=== PATIENT | female | born 1945 | race Caucasian/White ===

== ENCOUNTER 2017-02-20 10:40 | Emergency (ER) | payer MEDICARE, BC ==
[2017-02-20 11:19] VITALS: RESP 16; TEMP 98.5
--- NOTE | 2017-02-20 12:28 | ED ---
General Adult HPI - General Chief complaint: Extremity Problem,Nontraumatic Stated complaint: LEFT LEG SWELLING, FEVER Time Seen by Provider: 02/20/17 12:10 Source: patient, RN notes reviewed, old records reviewed Mode of arrival: wheelchair Limitations: no limitations - History of Present Illness Initial comments: This is a 71-year-old female the ER for left lower extremity swelling. Patient has left lower joint swelling or pain. Patient concern for blood clot. She has no history of blood clots. No trauma to that leg. Patient denies any other symptoms or complaints. - Related Data Home Medications Medication Instructions Recorded Confirmed Pramipexole Di-HCl [Mirapex] 0.75 mg PO HS 11/25/13 02/20/17 Previous Rx's Medication Instructions Recorded Cephalexin [Keflex] 500 mg PO Q6HR #40 cap 02/20/17 Allergies Allergy/AdvReac Type Severity Reaction Status Date / Time ciprofloxacin [From Cipro] Allergy muscle and Verified 02/20/17 13:12 bone weakness ciprofloxacin HCl Allergy muscle and Verified 02/20/17 13:12 [From Cipro] bone weakness levofloxacin [From Levaquin] Allergy Rash/Hives Verified 02/20/17 13:12 milk Allergy Diarrhea Verified 02/20/17 13:12 quinine Allergy Unknown Verified 02/20/17 13:12 Sulfa (Sulfonamide Allergy Unknown Verified 02/20/17 13:12 Antibiotics) sulfamethoxazole Allergy Unknown Verified 02/20/17 13:12 [From Bactrim] trimethoprim [From Bactrim] Allergy Unknown Verified 02/20/17 13:12 hormone Allergy Unknown Uncoded 02/20/17 11:19 Review of Systems ROS Statement: Those systems with pertinent positive or pertinent negative responses have been documented in the HPI. ROS Other: All systems not noted in ROS Statement are negative. Past Medical History Past Medical History: Pulmonary Embolus (PE), Skin Disorder Additional Past Medical History / Comment(s): impetigo, varicose veins, sores on cheek and chin AND NECK FOR APPROX 1 1/2 YRS, RESTLESS LEG SYNDROME KRISTY. History of Any Multi-Drug Resistant Organisms: None Reported Past Surgical History: Orthopedic Surgery Additional Past Surgical History / Comment(s): left carpel tunnnel Past Anesthesia/Blood Transfusion Reactions: No Reported Reaction Past Psychological History: No Psychological Hx Reported Smoking Status: Never smoker Past Alcohol Use History: None Reported Past Drug Use History: None Reported - Past Family History Father Family Medical History: Cancer Mother Family Medical History: Cancer General Exam - General Exam Comments Initial Comments: Left lower extremity edema, warmth and erythema, anterior Limitations: no limitations General appearance: alert, in no apparent distress Head exam: Present: atraumatic, normocephalic, normal inspection Eye exam: Present: normal appearance, PERRL, EOMI. Absent: scleral icterus, conjunctival injection, periorbital swelling ENT exam: Present: normal exam, mucous membranes moist Neck exam: Present: normal inspection. Absent: tenderness, meningismus, lymphadenopathy Respiratory exam: Present: normal lung sounds bilaterally. Absent: respiratory distress, wheezes, rales, rhonchi, stridor Cardiovascular Exam: Present: regular rate, normal rhythm, normal heart sounds. Absent: systolic murmur, diastolic murmur, rubs, gallop, clicks GI/Abdominal exam: Present: soft, normal bowel sounds. Absent: distended, tenderness, guarding, rebound, rigid Extremities exam: Present: normal inspection, full ROM, normal capillary refill. Absent: tenderness, pedal edema, joint swelling, calf tenderness Back exam: Present: normal inspection Neurological exam: Present: alert, oriented X3, CN II-XII intact Psychiatric exam: Present: normal affect, normal mood Skin exam: Present: warm, dry, intact, normal color. Absent: rash Course Vital Signs 02/20/17 02/20/17 02/20/17 11:16 13:20 15:19 Temperature 98.5 F 98.5 F Pulse Rate 66 79 72 Respiratory 16 16 16 Rate Blood Pressure 118/57 112/53 116/55 O2 Sat by Pulse 99 100 100 Oximetry Medical Decision Making - Medical Decision Making 71 female DEL with left leg swelling and erythema, patient states she has history of cellulitis, does not want any testing or anything down like that at this time, would like to try outpatient therapy. - Radiology Data Radiology results: report reviewed (Ultrasound left lower extremity negative), image reviewed Disposition Clinical Impression: Left leg cellulitis Disposition: HOME SELF-CARE Condition: Good Instructions: Cellulitis (ED) Prescriptions: Cephalexin [Keflex] 500 mg PO Q6HR #40 cap Referrals: Mera Villar MD [Primary Care Provider] - 1-2 days
--- NOTE | 2017-02-20 14:47 | US ---
EXAMINATION TYPE: US venous doppler duplex LE LT DATE OF EXAM: 02/20/2017 1:55 PM COMPARISON: NONE CLINICAL HISTORY: Pain. EC patient with lower leg swelling and redness; prior PE per patient SIDE PERFORMED: Left TECHNIQUE: The lower extremity deep venous system is examined utilizing real time linear array sonog gene with graded compression, doppler sonography and color-flow sonography. VESSELS IMAGED: Common Femoral Vein Deep Femoral Vein Greater Saphenous Vein * Femoral Vein Popliteal Vein Small Saphenous Vein * Proximal Calf Veins (* superficial vessels) Left Leg: Negative for DVT. Left popliteal fossa complex fluid collection is noted = 8.5 x 2.2 x 1.0 cm. IMPRESSION: Grayscale, color doppler, spectral doppler imaging performed of the deep veins of the lo wer extremities. There is normal flow, compressibility, vascular waveforms. Complex cyst is noted i n the popliteal fossa.
[2017-02-20] MEDS ORDERED: CEPHALEXIN 500 MG CAP PO STA (15:07)
[2017-02-20] MEDS ORDERED: CEPHALEXIN 500MG STARTER PACK 4 CAP BTL PO STA (15:07)
[2017-02-20 15:19] VITALS: BP 116/55; PULSE 72
--- NOTE | 2017-02-23 00:48 | CDI ---
Documentation Clarification OP Dear Oracio GALLAGHER, DO Please do addendum to ED report for HPI , Physical exam and MDM. Thank you, Estefany Tavarez Inspector [employer] If you have any question, Please contact coding compliance manager at [phone] [facility]
== END 2017-02-20 15:30 | disposition home or self-care (01) ==
LOC: EC 10:40
DX: L03.116 Cellulitis of left lower limb (principal); Z86.711 Personal history of pulmonary embolism; Z79.899 Other long term (current) drug therapy; Z88.1 Allergy status to other antibiotic agents; Z91.011 Allergy to milk products; Z88.2 Allergy status to sulfonamides; Z88.8 Allergy status to other drugs, medicaments and biological substances
CPT/HCPCS: 99283

== ENCOUNTER → 2017-04-27 | Outpatient (CLI) | payer MEDICARE, BC ==
--- NOTE | 2017-04-28 13:35 | MM ---
Reason for exam: screening (asymptomatic). Last mammogram was performed 7 years and 9 months ago. History: Patient is postmenopausal. Family history of breast cancer in mother at age 80. Physical Findings: A clinical breast exam by your physician is recommended on an annual basis and results should be correlated with mammographic findings. MG 3D Screening Mammo W/Cad Bilateral CC and MLO view(s) were taken. XCCL view(s) were taken of the left breast. Prior study comparison: August 09, 2009, bilateral diagnostic digital mammog. There are scattered fibroglandular densities. No suspicious abnormality. No significant changes when compared with prior studies. ASSESSMENT: Negative, BI-RAD 1 RECOMMENDATION: Routine screening mammogram of both breasts in 1 year.
== END | disposition home or self-care (01) ==
LOC: RADMAMWWP 09:50
PROVIDERS: ATTEND Family Medicine
DX: Z12.31 Encounter for screening mammogram for malignant neoplasm of breast (principal)
CPT/HCPCS: 77063; 77067

== ENCOUNTER → 2017-09-24 | Outpatient (CLI) | payer MEDICARE, BC ==
--- NOTE | 2017-09-24 15:10 | US ---
EXAMINATION TYPE: US thyroid st tissue head/neck DATE OF EXAM: 09/24/2017 COMPARISON: NONE CLINICAL HISTORY: R22.1 Swelling of neck/mass. Patient can feel lump within her throat on and off GLAND SIZE: Right Lobe: 3.4 x 1.2 x 1.6 cm Overall Parenchyma: heterogenous Left Lobe: 3.3 x 0.8 x 1.2 cm Overall Parenchyma: heterogeneous Isthmus Thickness: 0.2 cm NODULES RIGHT: # of nodules measured on right: 0 LEFT: # of nodules measured on left: 1 1. 0.3 X 0.4 x 0.3 cm hypoechoic mixed nodule at the mid pole with well-defined margins; . This no dule is taller than wide and shows no intranodular vascularity. Prior size: No previous ISTHMUS: # of nodules measured in the isthmus: 0 Bilateral neck scanned, no evidence of lymphadenopathy. IMPRESSION: Solitary 0.4 cm left thyroid nodule of low suspicion. Otherwise unremarkable thyroid ultrasound.
== END | disposition home or self-care (01) ==
LOC: RADUSWWP 11:54
PROVIDERS: ATTEND Family Medicine
DX: E04.1 Nontoxic single thyroid nodule (principal); E03.9 Hypothyroidism, unspecified
CPT/HCPCS: 76536

== ENCOUNTER 2018-01-24 18:12 | Emergency (ER) | payer MEDICARE, BC ==
[2018-01-24 18:48] VITALS: PULSE 72; TEMP 98.3
[2018-01-24] MEDS ORDERED: KETOROLAC 30 MG/ML 1 ML VIAL IM STA (20:11)
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
--- NOTE | 2018-01-24 21:46 | US ---
EXAMINATION TYPE: US venous doppler duplex LE RT DATE OF EXAM: 01/24/2018 9:23 PM COMPARISON: NONE CLINICAL HISTORY: Pain. Right leg pain and edema. SIDE PERFORMED: Right TECHNIQUE: The lower extremity deep venous system is examined utilizing real time linear array sonog gene with graded compression, doppler sonography and color-flow sonography. VESSELS IMAGED: External Iliac Vein (EIV) Common Femoral Vein Deep Femoral Vein Greater Saphenous Vein * Femoral Vein Popliteal Vein Small Saphenous Vein * Proximal Calf Veins (* superficial vessels) Right Leg: Negative for DVT No evidence of DVT right leg. IMPRESSION: Normal right leg duplex venous sonogram.
--- NOTE | 2018-01-24 22:41 | XR ---
EXAMINATION TYPE: XR knee complete RT DATE OF EXAM: 01/24/2018 COMPARISON: 12/28/2014 HISTORY: Knee pain TECHNIQUE: 3 views. FINDINGS: I see no fracture nor dislocation. Joint spaces are fairly normal. There is no sign of any joint effu shiela. Impression Negative right knee exam. No change.
[2018-01-24 23:12] LABS: Basophils % (A) 0 %; Eosinophils # (A) 0.1 k/uL (0-0.7); Eosinophils % (A) 1 %; HCT 35.3 % (34.0-46.0); HGB 11.5 gm/dL (11.4-16.0); Lymphocytes # (A) 2.1 k/uL (1.0-4.8); Lymphocytes % (A) 24 %; MCH 29.7 pg (25.0-35.0); MCHC 32.6 g/dL (31.0-37.0); MCV 91.2 fL (80.0-100.0); Mean Platelet Volume 8.7; Monocytes # (A) 0.8 k/uL (0-1.0); Monocytes % (A) 9 %; Neutrophils # (A) 5.6 k/uL (1.3-7.7); Neutrophils % (A) 64 %; Platelet Count 238 k/uL (150-450); RBC 3.87 m/uL (3.80-5.40); RDW 13.2 % (11.5-15.5); WBC 8.7 k/uL (3.8-10.6)
[2018-01-24 23:26] LABS: Albumin 3.6 g/dL (3.5-5.0); Calcium 9.3 mg/dL (8.4-10.2); Potassium 3.9 mmol/L (3.5-5.1); Total Protein 6.4 g/dL (6.3-8.2)
[2018-01-24 23:38] LABS: C Reactive Protein 163.1 mg/L (<10.0)
[2018-01-25] MEDS ORDERED: IBUPROFEN 600 MG STARTER PACK 4 TAB BTL PO STA (00:44)
[2018-01-25 01:55] VITALS: BP 121/87; RESP 20
== END 2018-01-25 01:51 | disposition home or self-care (01) ==
LOC: EC 18:12
DX: M25.461 Effusion, right knee (principal); G25.81 Restless legs syndrome; Z79.899 Other long term (current) drug therapy; Z86.711 Personal history of pulmonary embolism; Z88.1 Allergy status to other antibiotic agents; Z88.2 Allergy status to sulfonamides; Z91.011 Allergy to milk products; Z88.8 Allergy status to other drugs, medicaments and biological substances
CPT/HCPCS: 36415; 80053; 85025; 86140; 87040; 73562; 93971; 99284; 96372; J1885

== ENCOUNTER → 2019-03-07 | Outpatient (CLI) | payer MEDICARE, BC ==
[2019-03-07 08:50] LABS: Basophils % (A) 1 %; Eosinophils # (A) 0.3 k/uL (0-0.7); Eosinophils % (A) 4 %; HCT 40.7 % (34.0-46.0); HGB 13.1 gm/dL (11.4-16.0); Lymphocytes # (A) 2.1 k/uL (1.0-4.8); Lymphocytes % (A) 29 %; MCH 29.7 pg (25.0-35.0); MCHC 32.2 g/dL (31.0-37.0); MCV 92.1 fL (80.0-100.0); Mean Platelet Volume 8.7; Monocytes # (A) 0.4 k/uL (0-1.0); Monocytes % (A) 6 %; Neutrophils # (A) 4.3 k/uL (1.3-7.7); Neutrophils % (A) 59 %; Platelet Count 259 k/uL (150-450); RBC 4.42 m/uL (3.80-5.40); WBC 7.3 k/uL (3.8-10.6)
[2019-03-07 15:57] LABS: Albumin 4.4 g/dL (3.80-4.90); Albumin/Globulin Ratio 2.32 (1.60-3.17); Anion Gap 8.2 mmol/L (4.00-12.00); BUN/Creat Ratio 21.11 Ratio (12.00-20.00); Calcium 9.5 mg/dL (8.7-10.3); Carbon Dioxide 28.8 mmol/L (21.6-31.8); Globulin 1.9 g/dL (1.6-3.3); Non-African American GFR(CKD) 63.9 (60.0-200.0); Potassium 4.2 mmol/L (3.5-5.5); Total Bilirubin 0.4 mg/dL (0.2-1.2); Total Protein 6.3 g/dL (6.2-8.2)
== END | disposition home or self-care (01) ==
LOC: LABWHC1 08:26
PROVIDERS: ATTEND Psychiatry & Neurology Neurology
DX: Z00.00 Encounter for general adult medical examination without abnormal findings (principal); M62.81 Muscle weakness (generalized); Z79.899 Other long term (current) drug therapy
CPT/HCPCS: 36415; 80053; 82550; 85025

== ENCOUNTER → 2019-08-11 | Outpatient (CLI) | payer MEDICARE, BC ==
--- NOTE | 2019-08-11 14:02 | US ---
EXAMINATION TYPE: US thyroid st tissue head/neck DATE OF EXAM: 08/11/2019 COMPARISON: 09/24/2017 CLINICAL HISTORY: E04.1 Single thyroid nodule. Thyroid nodule GLAND SIZE: Right Lobe: 4.8 x 1.4 x 1.5 cm Overall Parenchyma: heterogenous Left Lobe: 4.3 x 1.1 x 1.0 cm Overall Parenchyma: heterogeneous Isthmus Thickness: 0.4 cm NODULES RIGHT: # of nodules measured on right: 0 LEFT: # of nodules measured on left: 1 1. 0.4 X 0.3 x 0.4 cm mixed nodule at the mid pole with well-defined margins. This nodule is wider than tall and shows no intranodular vascularity. Prior size: 0.3 x 0.4 x 0.3 cm ISTHMUS: # of nodules measured in the isthmus: 0 Bilateral neck scanned, no evidence of lymphadenopathy. IMPRESSION: Heterogeneous thyroid tissue correlate for thyroiditis. Stable 4 mm left thyroid nodule.
== END | disposition home or self-care (01) ==
LOC: RADUSWWP 13:37
PROVIDERS: ATTEND Family Medicine
DX: E04.1 Nontoxic single thyroid nodule (principal)
CPT/HCPCS: 76536

== ENCOUNTER → 2019-09-22 | Outpatient (CLI) | payer MEDICARE, BC ==
--- NOTE | 2019-09-22 17:17 | BD ---
EXAMINATION TYPE: Axial Bone Density DATE OF EXAM: 09/22/2019 COMPARISON: NONE CLINICAL HISTORY: 73-year-old female postmenopausal screening Height: 63 Weight: 147.7 FRAX RISK QUESTIONS: Alcohol (3 or more units per day): no Family History (Parent hip fracture): no Glucocorticoids (More than 3mos): no (Ex: prednisone, prednisolone, methylprednisolone, dexamethasone, and hydrocortisone). History of Fracture in Adulthood: yes Secondary Osteoporosis: 1. Type 1 Diabetes: no 2. Hyperthyroidism: no 3. Menopause before 45: no 4. Malnutrition: no 5. Chronic liver disease: no Rheumatoid Arthritis: no Current Tobacco Use: no RISK FACTORS HISTORY OF: Family History of Osteoporosis: no Active: yes Diet low in dairy products/other sources of calcium: no Postmenopausal woman: age 46 Take estrogen and/or progesterone medications: yes How lon months Lost more than 2 inches in height since high school: yes MEDICATIONS: Mirapex, estrogen Additional History: EXAM MEASUREMENTS: Bone mineral densitometry was performed using the ehealthtracker System. Bone mineral density as measured about the Lumbar spine is: ----- L1-L4(G/cm2): 0.950 T Score Values are as follows: ----- L2: -3.3 ----- L3: -1.2 ----- L4: -1.1 ----- L1-L4: Bone mineral density : baseline Bone mineral density about the R hip (g/cm2): 0.711 Bone mineral density about the L hip (g/cm2): 0.664 T Score values are as follows: -----R Neck: -2.4 -----L Neck: -2.7 -----R Total: -2.3 -----L Total: -2.0 Bone mineral density : baseline IMPRESSION: Osteoporosis (T Score less than -2.5). There is increased fracture risk and therapy is usually indicated based on age. Re-Screen 1-2 years. NOTE: T-SCORE=SD OF THE YOUNG ADULT MEAN.
--- NOTE | 2019-09-28 10:11 | MM ---
Reason for exam: screening (asymptomatic). Last mammogram was performed 2 years and 5 months ago. History: Patient is postmenopausal. Family history of breast cancer in mother at age 80. Taking estrogen. Physical Findings: A clinical breast exam by your physician is recommended on an annual basis and results should be correlated with mammographic findings. MG 3D Screening Mammo W/Cad Bilateral CC and MLO view(s) were taken. Prior study comparison: April 27, 2017, bilateral MG 3d screening mammo w/cad. August 09, 2009, bilateral diagnostic digital mammog. The breast tissue is heterogeneously dense. This may lower the sensitivity of mammography. There is no discrete abnormality. No significant changes when compared with prior studies. ASSESSMENT: Negative, BI-RAD 1 RECOMMENDATION: Routine screening mammogram of both breasts in 1 year.
== END | disposition home or self-care (01) ==
LOC: RADMAMWWP 15:29
PROVIDERS: ATTEND Family Medicine
DX: Z12.31 Encounter for screening mammogram for malignant neoplasm of breast (principal); M81.0 Age-related osteoporosis without current pathological fracture; Z78.0 Asymptomatic menopausal state
CPT/HCPCS: 77063; 77067; 77080

== ENCOUNTER → 2019-09-26 | Outpatient (CLI) | payer MEDICARE, BC ==
[2019-09-26 14:25] LABS: Basophils # (A) 0.1 k/uL (0-0.2); Basophils % (A) 1 %; Eosinophils # (A) 0.2 k/uL (0-0.7); Eosinophils % (A) 4 %; HCT 37.7 % (34.0-46.0); Lymphocytes % (A) 35 %; MCH 29.1 pg (25.0-35.0); MCHC 31.9 g/dL (31.0-37.0); MCV 91.4 fL (80.0-100.0); Mean Platelet Volume 9.1; Monocytes # (A) 0.3 k/uL (0-1.0); Monocytes % (A) 6 %; Neutrophils # (A) 2.9 k/uL (1.3-7.7); Neutrophils % (A) 51 %; Platelet Count 204 k/uL (150-450); RBC 4.12 m/uL (3.80-5.40); RDW 13.2 % (11.5-15.5); WBC 5.6 k/uL (3.8-10.6)
[2019-09-26 14:39] LABS: African American GFR (CKD) >90 (>60 ml/min/1.73 sqM); Anion Gap 7 mmol/L; Blood Urea Nitrogen 12 mg/dL (7-17); Carbon Dioxide 26 mmol/L (22-30); Chloride 102 mmol/L (98-107); Non-African American GFR(CKD) 87 (>60 ml/min/1.73 sqM); Potassium 4.1 mmol/L (3.5-5.1); Sodium 135 mmol/L (137-145)
== END | disposition home or self-care (01) ==
LOC: LABPAT 12:49
PROVIDERS: ATTEND Obstetrics & Gynecology
DX: Z01.818 Encounter for other preprocedural examination (principal); N81.4 Uterovaginal prolapse, unspecified
CPT/HCPCS: 36415; 80051; 82565; 84520; 85025; 86850; 86900; 86901; 87086; 93005

== ENCOUNTER 2019-10-03 05:43 | Day surgery (SDC) | payer MEDICARE, BC ==
[2019-09-29 13:09] VITALS: BMI 25.4
[~2019-10-03 05:43] MED LIST: DEXAMETHASONE SOD PHOSPHATE 10 MG/ML 1 ML VIAL IV ONE; HYDROmorphone 0.5 MG/0.5 ML SYRINGE IVP PRN; MIDAZOLAM 2 MG/2 ML VIAL IV PRN; ONDANSETRON 4 MG/2 ML VIAL IVP ONE
[2019-10-03] MEDS: LACTATED RINGERS 1,000 ML IV SCH ×2 (06:23→18:52)
[2019-10-03] MEDS ORDERED: LIDOCAINE 1% (10MG/ML) FOR IV START INTRADERMA ONE (06:23)
[2019-10-03] MEDS ORDERED: ONDANSETRON 4 MG/2 ML VIAL ONE (06:25)
[2019-10-03] MEDS ORDERED: MIDAZOLAM 2 MG/2 ML VIAL IV ONE (07:13)
[2019-10-03] MEDS ORDERED: fentaNYL (PF) 50 MCG/ML 2 ML AMP IV ONE (07:13)
[2019-10-03] MEDS ORDERED: SUCCINYLCHOLINE CHLORIDE 100 MG/5 ML SYR IV ONE (07:23)
[2019-10-03] MEDS ORDERED: PROPOFOL 10 MG/ML 20 ML VIAL IV ONE (07:23)
[2019-10-03] MEDS ORDERED: ePHEDrine SULFATE/0.9% NACL/PF 50 MG/5 ML SYRINGE IV ONE (07:23)
[2019-10-03] MEDS ORDERED: LIDOCAINE 1% INJ 10MG/ML (20 ML MDV) ONE (07:23)
[2019-10-03] MEDS ORDERED: GLYCOPYRROLATE 0.2 MG/ML 2 ML VIAL ONE (07:23)
[2019-10-03] MEDS ORDERED: fentaNYL (PF) 50 MCG/ML 2 ML AMP ONE (07:23)
[2019-10-03] MEDS ORDERED: NALOXONE 0.4 MG/ML 1 ML VIAL IV PRN (07:45)
[2019-10-03] MEDS ORDERED: HYDROmorphone 0.5 MG/0.5 ML SYRINGE IVP PRN (07:45)
[2019-10-03] MEDS ORDERED: KETOROLAC 30 MG/ML 1 ML VIAL IVP PRN ×2 (07:45→08:59)
[2019-10-03] MEDS ORDERED: diphenhydrAMINE 50 MG/ML 1 ML VIAL IVP PRN (07:45)
[2019-10-03] MEDS ORDERED: BACITRACIN ZINC 500 UNIT/GM OINT 28.4 GM TUBE TOPICAL ONE (07:54)
[2019-10-03] MEDS ORDERED: VASOPRESSIN 20 UNIT/ML 1 ML VIAL SQ ONE ×2 (07:55)
[2019-10-03] MEDS ORDERED: LACTATED RINGERS 1,000 ML IV ONE (08:42)
[2019-10-03] MEDS ORDERED: ZOLPIDEM 5 MG TAB PO PRN (08:59)
[2019-10-03] MEDS ORDERED: IBUPROFEN 600 MG TAB PO PRN (08:59)
[2019-10-03] MEDS ORDERED: SIMETHICONE 80 MG CHEWABLE PO PRN (08:59)
[2019-10-03] MEDS ORDERED: METOCLOPRAMIDE 5 MG/ML 2 ML VIAL IVP PRN (08:59)
--- NOTE | 2019-10-03 08:59 | P.OP ---
Date of Procedure: 10/03/19 Preoperative Diagnosis: Symptomatic uterine prolapse, cystocele and rectocele. Postoperative Diagnosis: Same, normal-appearing ovaries bilaterally Procedure(s) Performed: Vaginal hysterectomy, anterior and posterior colporrhaphy's Anesthesia: GETA Surgeon: Cindy Andersen Estimated Blood Loss (ml): 50 IV fluids (ml): 700 Urine output (ml): 400 Pathology: other (Cervix and uterus) Condition: stable Disposition: PACU Operative Findings: Normal-appearing ovaries bilaterally Description of Procedure: Patient is brought to the operating suite where a general anesthetic is administered without difficulty. She's placed in the dorsal lithotomy position. Antibiotics are given. The appropriate timeout is performed to assure proper patient and procedural identification. Bladder is drained for approximately 400 mL of clear yellow urine. The cervix, vagina, perineal body, and lower abdominal wall are all prepped and draped in usual sterile fashion. Weighted speculum was placed into the vagina. Anterior lip of the cervix is grasped with a double-tooth tenaculum. The cervix is injected circumferentially with a dilute Pitressin solution. A mi'kmaq blade scalpel is used to incise the mucosa circumferentially with a V positioning at 6:00. Sponge rolled finger is then used to sweep the mucosa from the underlying fascial plane. The peritoneum is entered at 6:00, suture tied with 2-0 Vicryl, and the large billed speculum was placed into the peritoneal cavity. At all times the mucosa is swept well from the operative field to avoid bladder injury. The right uterosacral cardinal ligament is identified, clamped cut and held with a 0 Vicryl suture laterally. The same is carried out contralaterally. Uterine vasculature is identified, clamped cut and suture ligated. 2 additional pedicles are taken superior to the vessels. The anterior peritoneum is entered at 12:00. Robin clamps are used across the final pedicles and the cervix and uterus are removed and sent to pathology. 0 Vicryl suture is used to tie these pedicles, flashed, and retied for excellent hemostasis. Ovaries are visualized with a sponge stick, normal and high in the pelvis and therefore left in situ. The speculum is changed to the shallow weighted speculum. The 2-0 Vicryl suture is brought around in a pursestring fashion to close the peritoneum. The uterosacral cardinal ligaments are brought across now to i ncorporate the opposite ligament as well as vaginal mucosa and the vagina is closed. An additional faoaki-im-holyj sutures used posterior to this, and one superior as well. Allis clamps are used on the superior most portion of the vaginal cough and the anterior repair is started. The mucosa is injected with the same dilute Pitressin solution in the midline. Metzenbaum scissors are used to undermine and then open the mucosa to approximately 1.5 cm inferior to the urethra. Allis clamps are used to hold the mucosa bilaterally and a fanlike fashion. A sponge rolled finger is used to sweep the underlying fascial plane away from the overlying mucosal edges. 2-0 Vicryl sutures used in an interrupted fashion to bring the fascial edges together. Rodriguez catheter is placed in the urine is clear. Excellent support is noted. Metzenbaum scissors are used to trim the redundant mucosa and a 2-0 Vicryl suture is used in a running locking fashion to close the vaginal mucosa. A triangular portion of tissue is now removed with a scalpel on the perineal body. The posterior vaginal wall is also now injected in the midline with the same dilute Pitressin solution, 30 mL total have been used. Metzenbaum scissors are used to undermine the mucosa in the midline and the mucosa is opened. It is held again in a fanlike fashion with Allis clamps bilaterally. Sponge rolled finger is used to sweep the fascia from the underlying mucosa. 2-0 Vicryl suture again is used in an interrupted fashion to bring the fascial edges together thereby completely reducing the rectocele. The mucosa is trimmed with Metzenbaum scissors. 2-0 Vicryl is used in a running locking stitch to close the posterior vaginal wall, and the repair is completed in an episiotomy-like fashion. Vagina is clean and dry. It is packed with one-inch iodophor gauze with basic tracing for support. Once again Rodriguez is noted to be draining clear urine. All sponge needle and enhancement counts are correct. Patient is broug ht back to the recovery room in very good condition with stable vital signs including blood pressure 118/56, pulse 56, 99% O2 saturation.
[2019-10-03] MEDS ORDERED: PRAMIPEXOLE 1 MG TAB PO STA (09:06)
[2019-10-03] MEDS: ONDANSETRON 4 MG/2 ML VIAL IVP PRN ×2 (12:10→20:41)
[2019-10-03] MEDS: diphenhydrAMINE 50 MG/ML 1 ML VIAL IVP PRN (14:33)
[2019-10-03] MEDS ORDERED: SODIUM CHLORIDE 0.9% 500 ML 300 ML IV ONE (18:41)
[2019-10-03] MEDS ORDERED: PRAMIPEXOLE 1 MG TAB PO ONE (21:00)
[2019-10-03] MEDS ORDERED: SODIUM CHLORIDE 0.9% 500 ML 500 ML IV ONE (22:02)
[2019-10-03 23:25] VITALS: TEMP 97.6
[2019-10-04 05:50] VITALS: BP 96/56; PULSE 61; RESP 18
[2019-10-04] MEDS: diphenhydrAMINE 50 MG/ML 1 ML VIAL IVP PRN (06:44)
--- NOTE | 2019-10-04 07:47 | P.DS ---
Providers Date of admission: 10/03/19 Expected date of discharge: 10/04/19 Attending physician: Cindy Andersen Primary care physician: [facility] [place] Course: This 73 year old female presented with an increasingly symptomatic uterine p rolapse, rectocele and cystocele, requesting surgical repair. See admitting H and P for details. She underwent vaginal hysterectomy and cystocele, rectocele repair under my care yesterday, ovaries were normal to inspection and left in situ. Please see dictated surgical note for details. This morning the vaginal packing and hebert catheter have been removed. Vital signs are stable, she is ambulating and has no complaints of pain. She is tolerating regular diet and resting comfortably. She will have uroscan after first void, and if less than 100cc will be discharged home. She will follow up with me in the office in 2 weeks. SHe will call with any fever, vaginal bleeding, issues with defecation or urination or any unusual complaints or pain no alleviated by motrin OTC. No intercourse, no heavy lifting, no heavy housework. Assessment: Doing well post op day 1 Patient Condition at Discharge: Good Plan - Discharge Summary New Discharge Prescriptions: No Action Pramipexole Di-HCl [Mirapex] 0.75 mg PO HS Cyanocobalamin [Vitamin B-12] 500 mcg PO Q72H Ibuprofen [Motrin] 600 mg PO Q8HR PRN #30 tab PRN Reason: Pain Biotin/Silicon Diox/l-Cysteine [Sylvain Matrix 5000 ER Tablet] 1 each PO DAILY Discharge Medication List Pramipexole Di-HCl [Mirapex] 0.75 mg PO HS 11/25/13 [History] Cyanocobalamin [Vitamin B-12] 500 mcg PO Q72H 01/24/18 [History] Ibuprofen [Motrin] 600 mg PO Q8HR PRN #30 tab 01/25/18 [Rx] Biotin/Silicon Diox/l-Cysteine [[place] Matrix 5000 ER Tablet] 1 each PO DAILY 09/29/19 [History] Follow up Appointment(s)/Referral(s): Cindy Andersen MD [STAFF PHYSICIAN] - 2 Weeks
--- NOTE | 2019-10-04 08:03 | P.PN ---
Progress Note - Text Date: 10/04/2019 Time: 06:51 The patient is status post, vaginal hysterectomy. Vital signs stable VAS: 0-10 Patient has no complaints of pain. The patient incurred some minimal itching yesterday, this itching is now subsiding. Pain meds to be managed by service.
[2019-10-04] MEDS ORDERED: diphenhydrAMINE 25 MG CAP PO PRN (09:47)
== END 2019-10-04 11:25 ==
LOC: OR 05:43 → 6PED 08:49 → OR 10-04 11:25
PROVIDERS: ATTEND Obstetrics & Gynecology
DX: N81.4 Uterovaginal prolapse, unspecified (principal); J45.909 Unspecified asthma, uncomplicated; E03.9 Hypothyroidism, unspecified; G25.81 Restless legs syndrome; M19.90 Unspecified osteoarthritis, unspecified site; Z98.890 Other specified postprocedural states; Z79.899 Other long term (current) drug therapy; Z88.1 Allergy status to other antibiotic agents; Z88.2 Allergy status to sulfonamides; Z80.3 Family history of malignant neoplasm of breast; Z80.9 Family history of malignant neoplasm, unspecified; Z88.8 Allergy status to other drugs, medicaments and biological substances; Z86.718 Personal history of other venous thrombosis and embolism; Z86.711 Personal history of pulmonary embolism; Z91.011 Allergy to milk products
CPT/HCPCS: 88305; 58260; 57260; J2250; J1200 ×2; J1100; J2765; J0690; J2405; J3010; J1885; 86850; 86900; 86901

== ENCOUNTER → 2022-01-28 | Outpatient (CLI) | payer MEDICARE, BC ==
--- NOTE | 2022-01-28 15:40 | BD ---
EXAMINATION TYPE: Axial Bone Density DATE OF EXAM: 01/28/2022 COMPARISON: 09/22/2019 CLINICAL HISTORY: 76 years year old Female. ICD-10 CODE: Z78.0 Asymptomatic menopause Height: 62" Weight: 146.6 FRAX RISK QUESTIONS: Alcohol (3 or more units per day): Family History (Parent hip fracture): NO Glucocorticoids (More than 3mos): YES, HYDROXYCHLOROQUINE, LAST 5 MONTHS (Ex: prednisone, prednisolone, methylprednisolone, dexamethasone, and hydrocortisone). History of Fracture in Adulthood: YES, RIGHT ANKLE Secondary Osteoporosis: 1. Type 1 Diabetes: NO 2. Hyperthyroidism: NO 3. Menopause before 45: NO 4. Malnutrition: NO 5. Chronic liver disease: NO Rheumatoid Arthritis: NO Current Tobacco Use: NO RISK FACTORS HISTORY OF: Hip Fracture (Right/Left): NO Spine Fracture: NO History of Wrist Fracture: NO Surgery to Spine/Hip(right/left)/Wrist (right/left): YES, LEFT CARPAL TUNNEL SX Family History of Osteoporosis: YES, MOTHER Active: YES Diet low in dairy products/other sources of calcium: YES Postmenopausal woman: YES Lost more than 2 inches in height since high school: YES Frequent falls: YES Poor Health: GOOD Hyperparathyroidism: NO Adrenal Insufficiency: NO MEDICATIONS: Prednisone or other steroids: HYDR CHLORO PAPA How Long: PAST 5 MONTHS Additional Medications: CALCIUM WITH VITAMIN D, MIRAPEX FOR RESTLESS LEGS EXAM MEASUREMENTS: Bone mineral densitometry was performed using the [employer] Blackbox System. Bone mineral density as measured about the Lumbar spine is: ----- L1-L4(G/cm2): 0.928 T Score Values are as follows: ----- L1: -3.3 ----- L2: -3.4 ----- L3: -1.5 ----- L4: -0.7 ----- L1-L4: -2.1 Bone mineral density has: Decreased -2.3% since study of: 09/22/2019 Bone mineral density about the R hip (g/cm2): 0.703 Bone mineral density about the L hip (g/cm2): 0.704 T Score values are as follows: -----R Neck: -2.4 -----L Neck: -2.5 -----R Total: -2.4 -----L Total: -2.4 Bone mineral density has: Decreased -4.4% since study of: 09/22/2019 FRAX%s: The graph provided illustrates a 14.7% chance for a major osteoporotic fx and a 5.5% chance f or the hips probability for fx in 10 years time. IMPRESSION: Osteopenia (T Score between -2.5 and -1). There is slightly increased risk of fracture and the patient may be considered for treatment. Re-Screen 2-5 years. NOTE: T-SCORE=SD OF THE YOUNG ADULT MEAN.
--- NOTE | 2022-01-29 18:37 | MM ---
Reason for Exam: Screening (asymptomatic). Last mammogram was performed 2 year(s) and 4 month(s) ago. Patient History: Menarche at age 14. First Full-Term at age 28. Hysterectomy at age 74. Postmenopausal. Patient has history of breast feeding. Estrogen for 2 months. Mother had breast cancer, age 80. Risk Values: Jeimy 5 year model risk: 3.5%. NCI Lifetime model risk: 7.4%. Prior Study Comparison: 08/09/2009 Bilateral Diagnostic Mammogram, [facility]. 04/27/2017 Bilateral Screening Mammogram, [facility]. 09/22/2019 Bilateral Screening Mammogram, [facility]. Tissue Density: There are scattered fibroglandular densities. Findings: Analyzed By CAD. There is no suspicious group of microcalcifications or new suspicious mass in either breast. Overall Assessment: Negative, BI-RAD 1 Management: Screening Mammogram of both breasts in 1 year. 1. Patient should continue monthly self breast exams. 2. A clinical breast exam by your physician is recommended on an annual basis. 3. This exam should not preclude additional follow-up of suspicious palpable abnormalities. Electronically signed and approved by: Tremayne Weiss M.D. Radiologist
== END | disposition home or self-care (01) ==
LOC: RADMAMWWP 13:58
PROVIDERS: ATTEND Family Medicine
DX: Z12.31 Encounter for screening mammogram for malignant neoplasm of breast (principal); M81.0 Age-related osteoporosis without current pathological fracture; Z78.0 Asymptomatic menopausal state; Z80.3 Family history of malignant neoplasm of breast
CPT/HCPCS: 77063; 77067; 77080

== ENCOUNTER 2022-07-28 09:48 | Day surgery (SDC) | payer MEDICARE ==
[2022-07-24 10:57] VITALS: BMI 25.3
[~2022-07-28 09:48] MED LIST changes: -DEXAMETHASONE SOD PHOSPHATE 10 MG/ML 1 ML VIAL IV ONE; -HYDROmorphone 0.5 MG/0.5 ML SYRINGE IVP PRN; +LACTATED RINGERS 1,000 ML IV SCH; +LIDOCAINE 1% (10MG/ML) FOR IV START INTRADERMA PRN; -MIDAZOLAM 2 MG/2 ML VIAL IV PRN; -ONDANSETRON 4 MG/2 ML VIAL IVP ONE
[2022-07-28 10:13] VITALS: TEMP 97.4
[2022-07-28] MEDS ORDERED: PROPOFOL 10 MG/ML 20 ML VIAL IV ONE (10:36)
[2022-07-28] MEDS ORDERED: LIDOCAINE 2% INJ 20 MG/ML (2 ML VIAL) ONE (10:36)
--- NOTE | 2022-07-28 11:00 | P.PCN ---
Date of Procedure: 07/28/22 Procedure(s) Performed: BRIEF HISTORY: Patient is a 76-year-old, pleasant, white female scheduled for an upper endoscopy as a part of evaluation of intermittent episodes of epigastric pain followed by nausea vomiting of almost 5-6 months duration. She has these episodes once or twice a month has been for a a few hours and then resolves.. PROCEDURE PERFORMED: Esophagogastroduodenoscopy with biopsy. PREOPERATIVE DIAGNOSIS: Intermittent episodes of epigastric pain associated with nausea vomiting of 8 months duration. IV sedation per anesthesia. PROCEDURE: After informed consent was obtained, the patient was brought into the endoscopy unit. IV sedation was administered by Anesthesia under continuous monitoring. Initially the Olympus GIF-140 video endoscope was inserted into the mouth. Esophagus intubated without any difficulty. It was gradually advanced into the stomach and duodenum and carefully examined. The bulb and the second part of the duodenum appeared normal. The scope at this time was withdrawn to the stomach, adequately insufflated with air, and upon careful examination, mucosa of the antrum, had mild gastritis and biopsies were done from this area. Mucosa of the body, cardia and the fundus appeared normal which was located in the large hiatal hernia.. The scope was then withdrawn into the esophagus. The GE junction was located at 30 cm from the incisors. The esophagus appeared normal. There were no erosions or ulcerations seen and the patient tolerated the procedure well. IMPRESSION: 1. Large paraesophageal hiatal hernia. 2. Mild antral gastritis. RECOMMENDATIONS: The findings of this examination were discussed with the patient as well as a family. She was advised to continue with small frequent meals and Pepcid 20 mg twice daily and follow antireflux measures. If she still remains symptomatic she will be referred for surgical evaluation .
[2022-07-28 11:23] VITALS: BP 119/70; PULSE 70; RESP 20
== END 2022-07-28 11:39 | disposition home or self-care (01) ==
LOC: ORWHC2ENDO 09:48
PROVIDERS: ATTEND Internal Medicine Gastroenterology
DX: K29.50 Unspecified chronic gastritis without bleeding (principal); K44.9 Diaphragmatic hernia without obstruction or gangrene; K21.9 Gastro-esophageal reflux disease without esophagitis; Z88.1 Allergy status to other antibiotic agents; Z88.2 Allergy status to sulfonamides; Z88.0 Allergy status to penicillin; Z79.899 Other long term (current) drug therapy
CPT/HCPCS: 88305; 43239; J2704; J2001

== ENCOUNTER → 2022-10-19 | Outpatient (CLI) | payer MEDICARE ==
[2022-10-19 13:53] LABS: African American GFR (CKD) 81 (>60 ml/min/1.73 sqM); Blood Urea Nitrogen 21 mg/dL (7-17); Non-African American GFR(CKD) 70 (>60 ml/min/1.73 sqM)
--- NOTE | 2022-10-19 16:00 | CT ---
EXAMINATION TYPE: CT ChestAbdPelvis w con DATE OF EXAM: 10/19/2022 COMPARISON: None HISTORY: 76-year-old female K44.9, DIAPHRAGMATIC HERNIA WITHOUT OBSTRUCTION TECHNIQUE: Contiguous axial scanning of the chest, abdomen, and pelvis performed with IV Contrast, pa tient injected with 100ml mL of Isovue 300. Delayed images through the kidneys were obtained. Coronal /sagittal reconstructions performed. CT DLP: 1333 mGycm Automated exposure control for dose reduction was used. FINDINGS: Chest: Heart normal size without pericardial effusion. Aorta normal caliber with conventional arch vessel branching anatomy. No thoracic lymphadenopathy by CT size criteria. Minimal emphysematous change. Normal biapical pleural-parenchymal scarring. No consolidation or pleur al effusion. ABDOMEN: There is a large hiatal hernia involving the entire stomach within the lower chest. Liver enlarged measuring 21.6 cm probably due to the presence of a Ervin's lobe. Portal venous syste m is patent. No biliary ductal dilatation. Adrenal glands, right kidney, spleen, and atrophic pancreas show no gross abnormality. Parapelvic cyst left kidney measuring up to 2.0 cm. There is symmetric uptake and excretion of contra st from both kidneys. No dilated small bowel, free fluid, or free air. No mesenteric or retroperitoneal lymphadenopathy. No significant stool burden. Oral contrast progressed to the rectum. No pericolic inflammatory change . Pelvis: Bladder urine distended. There is pelvic floor relaxation. Uterus surgically absent. Both ovaries are visualized. Slight asymmetric fullness of the left ovary but with normal size of 5.3 mL. No abnormal fluid collection in the pelvis or pelvic lymphadenopathy. There is a small indirect left inguinal hernia containing a few loops of nonobstructed small bowel. T here is also a small right-sided direct inguinal hernia. Bones: Moderate to advanced degenerative disc disease lower thoracic spine and mid and lower lumbar spine. F acet arthropathy. IMPRESSION: 1. LARGE HIATAL HERNIA INVOLVING THE ENTIRE STOMACH WITHIN THE LOWER CHEST. 2. Moderate-sized indirect left inguinal hernia containing a loops of nonobstructed small bowel . Small right-sided indirect inguinal hernia. 3. Minimal emphysematous change. Pelvic floor relaxation.
== END | disposition home or self-care (01) ==
LOC: RADCTMAIN 11:59
PROVIDERS: ATTEND Internal Medicine Gastroenterology
DX: K44.9 Diaphragmatic hernia without obstruction or gangrene (principal); K40.90 Unilateral inguinal hernia, without obstruction or gangrene, not specified as recurrent; J43.9 Emphysema, unspecified
CPT/HCPCS: 82565; 84520; 71260; 74177; 36415; Q9967

== ENCOUNTER → 2022-11-17 | Outpatient (CLI) | payer MEDICARE ==
[2022-11-17 10:08] LABS: INR 0.9 (<1.2); Partial Thromboplastin Time 25.6 sec (22.0-30.0); Prothrombin Time 9.8 sec (9.0-12.0)
[2022-11-17 15:23] LABS: Appearance,Urine Clear (Clear); Bilirubin,Urine Negative (Negative); Blood,Urine Negative (Negative); Color,Urine Yellow (Yellow); Ketones,Urine Negative (Negative); Nitrite,Urine Negative (Negative); Specific Gravity,Urine 1.013 (1.001-1.030); Urobilinogen,Urine 0.2 E.U./DL
[2022-11-17 15:52] LABS: Basophils # (A) 0.04 X 10*3/uL (0.00-0.10); Basophils % (A) 0.6 %; Eosinophils # (A) 0.23 X 10*3/uL (0.04-0.35); Eosinophils % (A) 3.2 %; HCT 40.2 % (37.2-46.3); HGB 12.9 d/dL (12.0-15.0); Lymphocytes # (A) 1.92 X 10*3/uL (0.90-5.00); Lymphocytes % (A) 26.5 %; MCH 29.5 pg (27.0-32.0); MCHC 32.1 d/dL (32.0-37.0); MCV 91.8 FL (80.0-97.0); Mean Platelet Volume 11.3 FL (9.5-12.2); Monocytes % (A) 8.3 %; NRBC Per 100 WBC 0 X 10*3/uL (0.00-0.01); Neutrophils # (A) 4.42 X 10*3/uL (1.80-7.70); Platelet Count 250 X 10*3/uL (140-440); RBC 4.38 X 10*6/uL (4.10-5.20); WBC 7.24 X 10*3/uL (4.50-10.00)
[2022-11-17 16:04] LABS: Blood Urea Nitrogen 13.7 mg/dL (9.0-27.0); Carbon Dioxide 28.7 mmol/L (21.6-31.8); Chloride 102 mmol/L (96-109); Glucose 91 mg/dL (70-110); Potassium 4.4 mmol/L (3.5-5.5); Sodium 141 mmol/L (135-145)
== END | disposition home or self-care (01) ==
LOC: LABPAT 09:01
PROVIDERS: ATTEND Thoracic Surgery (Cardiothoracic Vascular Surgery)
DX: Z01.818 Encounter for other preprocedural examination (principal); I49.8 Other specified cardiac arrhythmias; K44.9 Diaphragmatic hernia without obstruction or gangrene; R94.31 Abnormal electrocardiogram [ECG] [EKG]
CPT/HCPCS: 80051; 81003; 82565; 82947; 84520; 85025; 85610; 85730; 87086; 93005

== ENCOUNTER 2022-12-02 15:33 | Inpatient (IN) | payer MEDICARE ==
--- NOTE | 2022-12-02 16:40 | CT ---
EXAMINATION TYPE: CT chest abdomen wo con CT DLP: 288.3 mGycm, Automated exposure control for dose reduction was used. DATE OF EXAM: 12/02/2022 4:21 PM COMPARISON: Chest radiograph 11/28/2022, CT chest abdomen pelvis 10/19/2022 CLINICAL INDICATION:Female, 76 years old with history of Post surgical consultations; PHH, pain post hernia repair Technique: Multiple axial images of the chest and abdomen were obtained without the administration of intravenous oral contrast. Two-dimensional coronal and sagittal reconstructions were obtained. Findings: CHEST: Limited examination due to lack of intravenous and oral contrast. LUNGS/ PLEURA: No pneumothorax. Small bilateral pleural effusions with associated atelectasis. AIRWAY: Patent and unremarkable.. HEART: Size within normal limits. . MEDIASTINUM: No gross evidence of adenopathy. VASCULATURE: No aortic aneurysm. MUSCULOSKELETAL: No acute osseous abnormalities. SOFT TISSUES/LYMPH NODES: Unremarkable. LOWER NECK: No significant findings. ABDOMEN: ABDOMEN LIVER: Unremarkable GALLBLADDER AND BILE DUCTS: Unremarkable. PANCREAS: Unremarkable. SPLEEN: Unremarkable. ADRENAL GLANDS: Unremarkable. KIDNEYS AND URETERS: No evidence of hydronephrosis or renal calculus. Bilateral renal sinus cysts kalyan ntified. ABDOMEN STOMACH AND BOWEL: Enteric contrast reaches the mid small bowel.Postsurgical changes from hiatal james ia repair with moderate sized hernia demonstrated. No extravasation of contrast identified. Residual contrast demonstrated within the mid to distal esophagus. There is associated postsurgical wall thick ening with foci of gas. No evidence of bowel obstruction. PERITONEUM: No evidence of pneumoperitoneum or free fluid. Stranding within the anterior abdominal me sentery related to postsurgical change. VASCULATURE: No evidence of aortic aneurysm. MUSCULOSKELETAL: No acute osseous abnormalities. Mild disc degeneration changes are present throughout the thoracolumbar spine. LYMPH NODES: No gross evidence for lymphadenopathy. SOFT TISSUE/ABDOMINAL WALL: Postsurgical changes of the anterior abdominal wall. IMPRESSION: 1. Postsurgical changes from hiatal hernia repair with moderate size hernia demonstrated. No extrava sation of contrast. There is associated postsurgical wall thickening with few foci of surrounding gas . 2. Small bilateral pleural effusions.
--- NOTE | 2022-12-02 17:15 | FL ---
EXAMINATION TYPE: FL barium swallow DATE OF EXAM: 12/02/2022 CLINICAL HISTORY: Postoperative dysphagia TECHNIQUE: A single contrast esophagram is performed utilizing air and barium. A total of 1 minute and 25 seconds of fluoroscopic time was utilized during procedure and 11 images obtained. Total dose area product (DAP) in uGy*m?, mGy*cm? (or similar) 634.8 . COMPARISON: None FINDINGS: There is delayed emptying at the level of the GE junction with a tapered narrowing of the d istal esophagus and partial obstruction. The esophagus appear to be dilated mixed with secretions and contrast. There was delayed filling of the stomach. Residual hernia sac suspected with in the thorax . No sizable area of extravasation is seen to suggest esophageal injury or leak, however, a small lance k cannot be excluded by Limited barium swallow. Therefore CT of the chest without contrast is recomme nded. IMPRESSION: 1.. Esophagus is dilated and there is a tapered narrowing of the distal esophagus with delayed passa ge of contrast from the esophagus into the stomach compatible with partial obstruction. Suspect that there is residual sizable hiatal hernia sac intrathoracically. No obvious extravasation is noted. Rep ort was discussed with the emergency room physician. Recommendation for noncontrast CT chest to exclu de leak.
[2022-12-02 17:46] LABS: Basophils % (A) 0 %; Eosinophils # (A) 0.3 k/uL (0-0.7); Eosinophils % (A) 4 %; HCT 34.6 % (34.0-46.0); HGB 11.4 gm/dL (11.4-16.0); Lymphocytes # (A) 1.3 k/uL (1.0-4.8); Lymphocytes % (A) 22 %; MCH 30.1 pg (25.0-35.0); MCHC 32.9 g/dL (31.0-37.0); MCV 91.6 fL (80.0-100.0); Mean Platelet Volume 8.5; Monocytes # (A) 0.4 k/uL (0-1.0); Monocytes % (A) 7 %; Neutrophils # (A) 3.9 k/uL (1.3-7.7); Neutrophils % (A) 66 %; Platelet Count 323 k/uL (150-450); RBC 3.78 m/uL (3.80-5.40)
[2022-12-02 17:59] LABS: ALT 16 U/L (4-34); AST 31 U/L (14-36); African American GFR (CKD) >90 (>60 ml/min/1.73 sqM); Albumin 3.6 g/dL (3.5-5.0); Alkaline Phosphatase 78 U/L (38-126); Anion Gap 12 mmol/L; Blood Urea Nitrogen 18 mg/dL (7-17); Calcium 9.1 mg/dL (8.4-10.2); Carbon Dioxide 25 mmol/L (22-30); Chloride 102 mmol/L (98-107); Glucose 86 mg/dL (74-99); Non-African American GFR(CKD) 87 (>60 ml/min/1.73 sqM); Potassium 4.4 mmol/L (3.5-5.1); Sodium 139 mmol/L (137-145); Total Bilirubin 0.5 mg/dL (0.2-1.3); Total Protein 6.2 g/dL (6.3-8.2)
--- NOTE | 2022-12-02 18:23 | ED ---
General Adult HPI - General Chief complaint: Nausea/Vomiting/Diarrhea Stated complaint: throwing up Time Seen by Provider: 12/02/22 15:33 Source: patient, RN notes reviewed, old records reviewed Mode of arrival: ambulatory Limitations: no limitations - History of Present Illness Initial comments: This is a 76-year-old female presents emergency department recent surgery on her esophagus. Patient having some vomiting over the last few days so she was sent to the emergency department and be evaluated. Dr. Hunt wanted the patient to get a barium swallow and a chest x-ray. Patient herself states she's feeling fine while in bed so she doesn't need anything she feels comfortable. Patient denies any fever chills per patient denies any abdominal pain. Patient denies chest pain difficulty breathing or shortness of breath. - Related Data Home Medications Medication Instructions Recorded Confirmed Hydroxychloroquine Sulfate 200 mg PO DAILY 04/27/22 12/02/22 Calcium Carbonate/Vitamin D3 1 tab PO DAILY 07/24/22 12/02/22 [Calcium 600 mg-D3 10 Mcg (400 Iu)] Famotidine [Pepcid] 20 mg PO BID-W/MEALS 07/24/22 12/02/22 Albuterol Inhaler [Ventolin Hfa 2 puff INHALATION RT-QID PRN 12/02/22 12/02/22 Inhaler] Pramipexole [Mirapex] 1 mg PO HS 12/02/22 12/02/22 Allergies Allergy/AdvReac Type Severity Reaction Status Date / Time estrogens, conjugated Allergy Severe CLOT IN Verified 12/02/22 16:41 [From Premarin] LEGS gabapentin [From Neurontin] Allergy Severe CONSTANT Verified 12/02/22 16:41 MOVEMENT OF WHOLE BODY ciprofloxacin [From Cipro] Allergy muscle and Verified 12/02/22 16:41 bone weakness ciprofloxacin HCl Allergy muscle and Verified 12/02/22 16:41 [From Cipro] bone weakness levofloxacin [From Levaquin] Allergy Rash/Hives Verified 12/02/22 16:41 quinine Allergy WEAKNESS Verified 12/02/22 16:41 IN THE LEGS Sulfa (Sulfonamide Allergy SEVERE Verified 12/02/22 16:41 Antibiotics) WEAKNESS OF LEGS, Hives sulfamethoxazole Allergy SEVERE Verified 12/02/22 16:41 [From Bactrim] WEAKNESS OF LEGS, Hives trimethoprim [From Bactrim] Allergy SEVERE Verified 12/02/22 16:41 WEAKNESS OF LEGS, Hives Review of Systems ROS Statement: Those systems with pertinent positive or pertinent negative responses have been documented in the HPI. ROS Other: All systems not noted in ROS Statement are negative. Past Medical History Past Medical History: Pulmonary Embolus (PE), Skin Disorder Additional Past Medical History / Comment(s): ivaricose veins, RESTLESS LEG SYNDROME KRISTY. takes mirapex at night,OSTEOPOROSIS ,LUPUS History of Any Multi-Drug Resistant Organisms: None Reported Past Surgical History: Hernia Repair, Hysterectomy, Orthopedic Surgery Additional Past Surgical History / Comment(s): left carpel tunnnel Past Anesthesia/Blood Transfusion Reactions: No Reported Reaction Past Psychological History: No Psychological Hx Reported Smoking Status: Never smoker - Past Family History Sister(s) Family Medical History: Cancer Daughter(s) Family Medical History: Cancer Father Family Medical History: Cancer Mother Family Medical History: Cancer General Exam - General Exam Comments Initial Comments: GENERAL: Patient is well-developed and well-nourished. Patient is nontoxic and well- hydrated and is in no acute distress. ENT: Neck is soft and supple. No significant lymphadenopathy is noted. Oropharynx is clear. Moist mucous membranes. Neck has full range of motion without eliciting any pain. EYES: The sclera were anicteric and conjunctiva were pink and moist. Extraocular movements were intact and pupils were equal round and reactive to light. Eyelids were unremarkable. PULMONARY: Unlabored respirations. Good breath sounds bilaterally. No audible rales rhonchi or wheezing was noted. CARDIOVASCULAR: There is a regular rate and rhythm without any murmurs gallops or rubs. ABDOMEN: Soft and nontender with normal bowel sounds. SKIN: Skin is clear with no lesions or rashes and otherwise unremarkable. NEUROLOGIC: Patient is alert and oriented x3. Cranial nerves II through XII are grossly intact. Motor and sensory are also intact. Normal speech, volume and content. Symmetrical smile. MUSCULOSKELETAL: Normal extremities with adequate strength and full range of motion. LYMPHATICS: No significant lymphadenopathy is noted PSYCHIATRIC: Normal psychiatric evaluation. Limitations: no limitations Course Vital Signs 12/02/22 12/02/22 12/02/22 15:39 16:24 17:36 Temperature 98.2 F Pulse Rate 70 65 70 Respiratory 18 18 18 Rate Blood Pressure 118/54 116/59 109/52 O2 Sat by Pulse 96 97 97 Oximetry Medical Decision Making - Medical Decision Making Was pt. sent in by a medical professional or institution (, ELLEN, PEDIATRIC SOCIAL WORKER, urgent care, hospital, or skilled nursing...) When possible be specific @ -Patient was sent in by her cardiothoracic surgeon Did you speak to anyone other than the patient for history (EMS, parent, family, police, friend...)? What history was obtained from this source @ -Deandre Artis spoke to me prior to the patient's arrival Did you review nursing and triage notes (agree or disagree)? Why? @ -I reviewed and agree with nursing and triage notes Were old charts reviewed (outside hosp., previous admission, EMS record, old EKG, old radiological studies, urgent care reports/EKG's, skilled nursing records)? Report findings @ -I reviewed prior charts in prior laboratory studies Differential Diagnosis (chest pain, altered mental status, abdominal pain women, abdominal pain men, vaginal bleeding, weakness, fever, dyspnea, syncope, headache, dizziness, GI bleed, back pain, seizure, CVA, palpatations, mental health, musculoskeletal)? @ -Acute vomiting, postsurgical complications EKG interpreted by me (3pts min.). @ -As above X-rays interpreted by me (1pt min.). @ -Swallow indicated that there was some narrowing of the esophagus and some esophageal dilatation with part of his stomach being above the diaphragm CT interpreted by me (1pt min.). @ -CT of the chest showed part of the stomach above the diaphragm. No perforation was noted. U/S interpreted by me (1pt. min.). @ -None done What testing was considered but not performed or refused? (CT, X-rays, U/S, labs)? Why? @ -None What meds were considered but not given or refused? Why? @ -None Did you discuss the management of the patient with other professionals (professionals i.e. ELLEN Epps, PEDIATRIC SOCIAL WORKER, lab, RT, psych nurse, professor of social work, hops farmworker, teacher, corporate ethics officer, case aide)? Give summary @ -I spoke with Deandre Artis as well as Dr. Hunt about this case. I spoke with Dr. Hinkle he agreed to admit the case Was smoking cessation discussed for >3mins.? @ -No Was critical care preformed (if so, how long)? @ -No Were there social determinants of health that impacted care today? How? (Homelessness, low income, unemployed, alcoholism, drug addiction, transportation, low edu. Level, literacy, decrease access to med. care, detention, rehab)? @ -No Was there de-escalation of care discussed even if they declined (Discuss DNR or withdrawal of care, Hospice)? DNR status @ -No What co-morbidities impacted this encounter? (DM, HTN, Smoking, COPD, CAD, Cancer, CVA, ARF, Chemo, Hep., AIDS, mental health diagnosis, sleep apnea, morbid obesity)? @ -None Was patient admitted / discharged? Hospital course, mention meds given and route, prescriptions, significant lab abnormalities, going to OR and other pertinent info. @ -Patient had a barium swallow as well as a CT of the chest and it did indicate that the stomach was above the diaphragm and Dr. Hunt was contacted and he wanted the patient to be admitted. Dr. Hinkle agreed to admit the patient. Undiagnosed new problem with uncertain prognosis? @ -No Drug Therapy requiring intensive monitoring for toxicity (Heparin, Nitro, Insulin, Cardizem)? @ -No Were any procedures done? @ -No Diagnosis/symptom? @ -Postsurgical hiatal hernia Acute, or Chronic, or Acute on Chronic? @ -Acute Uncomplicated (without systemic symptoms) or Complicated (systemic symptoms)? @ -Complicated Side effects of treatment? @ -No Exacerbation, Progression, or Severe Exacerbation? @ -No Poses a threat to life or bodily function? How? (Chest pain, USA, MT, pneumonia, PE, COPD, DKA, ARF, appy, cholecystitis, CVA, Diverticulitis, Homicidal, Suicidal, threat to staff... and all critical care pts) @ -No - Lab Data Result diagrams: 12/02/22 17:35 12/02/22 17:35 Lab Results 12/02/22 12/02/22 Range/Units 17:35 17:35 WBC 6.0 (3.8-10.6) k/uL RBC 3.78 L (3.80-5.40) m/uL Hgb 11.4 (11.4-16.0) gm/dL Hct 34.6 (34.0-46.0) % MCV 91.6 (80.0-100.0) fL MCH 30.1 (25.0-35.0) pg MCHC 32.9 (31.0-37.0) g/dL RDW 13.0 (11.5-15.5) % Plt Count 323 (150-450) k/uL MPV 8.5 Neutrophils % 66 % Lymphocytes % 22 % Monocytes % 7 % Eosinophils % 4 % Basophils % 0 % Neutrophils # 3.9 (1.3-7.7) k/uL Lymphocytes # 1.3 (1.0-4.8) k/uL Monocytes # 0.4 (0-1.0) k/uL Eosinophils # 0.3 (0-0.7) k/uL Basophils # 0.0 (0-0.2) k/uL Sodium 139 (137-145) mmol/L Potassium 4.4 (3.5-5.1) mmol/L Chloride 102 (98-107) mmol/L Carbon Dioxide 25 (22-30) mmol/L Anion Gap 12 mmol/L BUN 18 H (7-17) mg/dL Creatinine 0.66 (0.52-1.04) mg/dL Est GFR (CKD-EPI)AfAm >90 (>60 ml/min/1.73 sqM) Est GFR (CKD-EPI)NonAf 87 (>60 ml/min/1.73 sqM) Glucose 86 (74-99) mg/dL Calcium 9.1 (8.4-10.2) mg/dL Total Bilirubin 0.5 (0.2-1.3) mg/dL AST 31 (14-36) U/L ALT 16 (4-34) U/L Alkaline Phosphatase 78 (38-126) U/L Total Protein 6.2 L (6.3-8.2) g/dL Albumin 3.6 (3.5-5.0) g/dL Disposition Clinical Impression: Hiatal hernia, Complication, postoperative Disposition: ADMITTED IP TO THIS HOSP Referrals: Mera Villar MD [Primary Care Provider] - 1-2 days Time of Disposition: 18:24
[2022-12-02] MEDS ORDERED: SODIUM CHLORIDE 0.9% 1,000 ML IV ONE (18:27)
[2022-12-03] MEDS ORDERED: LACTATED RINGERS 1,000 ML IV ONE ×2 (12:19→15:21)
--- NOTE | 2022-12-03 12:20 | P.GSCN ---
History of Present Illness Consult date: 12/03/22 Reason for Consult: Vomiting after eating and unable to keep fluids down. Requesting physician: Oracio Johnson History of present illness: This is a 76-year-old female patient who follows on an outpatient basis with Dr. Villar for her primary care. She has a history of esophageal hernia and underwent a paraesophageal hernia repair on 11/26/2022, she also has a past medical history significant for lupus with recent flareup, DVT with PE 30 years ago, GERD, restless leg syndrome and is a lifetime nonsmoker. The patient presented to the emergency department here at [facility] with complaints of unable to keep food down after lunch and dinner since she has been discharged. The patient called the surgeons office and was recommended to present to the emergency department for further evaluation and treatment recommendations. She denies any fevers, chills,, shortness of breath, diarrhea, constipation, headache, chest pain or pressure, lightheadedness, presyncope or syncope. A computed tomography scan of her abdomen and chest were completed without contrast which demonstrated postsurgical changes from the hiatal hernia repair with moderate size hernia demonstrated, no extravasation of contrast, and small bilateral pleural effusions. For further evaluation she underwent a barium swallow which showed esophagus to be dilated and there is a tapered narrowing of the distal esophagus with delayed passage of contrast from the esophagus into the stomach compatible with partial obstruction, suspected residual sizable hiatal hernia sac intrathoracally, and no obvious extravasation. Subsequently, due to the patient's presenting symptoms and above mentioned findings a consult was placed to Dr. Roscoe Hunt from cardiothoracic surgery for further evaluation and treatment recommendations. Review of Systems A 14 point review of systems was completed was negative except as mentioned in the HPI. Past Medical History Past Medical History: Pulmonary Embolus (PE), Skin Disorder Additional Past Medical History / Comment(s): ivaricose veins, RESTLESS LEG SYNDROME KRISTY. takes mirapex at night,OSTEOPOROSIS ,LUPUS, para esophageal hernia was subsequent repair History of Any Multi-Drug Resistant Organisms: None Reported Past Surgical History: Hernia Repair, Hysterectomy, Orthopedic Surgery Additional Past Surgical History / Comment(s): left carpel tunnnel Past Anesthesia/Blood Transfusion Reactions: Postoperative Nausea & Vomiting (PONV) Past Psychological History: No Psychological Hx Reported Additional Psychological History / Comment(s): . Lives in the family home with her . 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 She has no experience. No international travel. She is a lifelong nonsmoker with no severe alcohol use. No recreational drug use. There is a pet dog in the home which is a Pomeranian. It's been there for 3 years. She lives with her and he has no skin troubles. She has no exposure to farm animals at this time, although did have some exposure as a child. Smoking Status: Never smoker Past Alcohol Use History: None Reported Past Drug Use History: None Reported - Past Family History Sister(s) Family Medical History: Cancer Daughter(s) Family Medical History: Cancer Father Family Medical History: Cancer Mother Family Medical History: Cancer Medications and Allergies Home Medications Medication Instructions Recorded Confirmed Type Hydroxychloroquine Sulfate 200 mg PO DAILY 04/27/22 12/02/22 History Calcium Carbonate/Vitamin D3 1 tab PO DAILY 07/24/22 12/02/22 History [Calcium 600 mg-D3 10 Mcg (400 Iu)] Famotidine [Pepcid] 20 mg PO BID-W/MEALS 07/24/22 12/02/22 History Albuterol Inhaler [Ventolin Hfa 2 puff INHALATION RT-QID PRN 12/02/22 12/02/22 History Inhaler] Pramipexole [Mirapex] 1 mg PO HS 12/02/22 12/02/22 History Allergies Allergy/AdvReac Type Severity Reaction Status Date / Time estrogens, conjugated Allergy Severe CLOT IN Verified 12/03/22 12:29 [From Premarin] LEGS gabapentin [From Neurontin] Allergy Severe CONSTANT Verified 12/03/22 12:29 MOVEMENT OF WHOLE BODY ciprofloxacin [From Cipro] Allergy muscle and Verified 12/03/22 12:29 bone weakness ciprofloxacin HCl Allergy muscle and Verified 12/03/22 12:29 [From Cipro] bone weakness levofloxacin [From Levaquin] Allergy Rash/Hives Verified 12/03/22 12:29 quinine Allergy WEAKNESS Verified 12/03/22 12:29 IN THE LEGS Sulfa (Sulfonamide Allergy SEVERE Verified 12/03/22 12:29 Antibiotics) WEAKNESS OF LEGS, Hives sulfamethoxazole Allergy SEVERE Verified 12/03/22 12:29 [From Bactrim] WEAKNESS OF LEGS, Hives trimethoprim [From Bactrim] Allergy SEVERE Verified 12/03/22 12:29 WEAKNESS OF LEGS, Hives Surgical - Exam Vital Signs Temp Pulse Resp BP Pulse Ox 98.2 F 70 18 118/54 96 12/02/22 15:39 12/02/22 15:39 12/02/22 15:39 12/02/22 15:39 12/02/22 15:39 - General well developed, well nourished, no distress, no pain, chronically ill - Eyes PERRL, normal ocular movement, no pale, no icteric - ENT normal pinna, normal nares, normal mucosa, no hearing loss, no congestion - Neck Neck is supple, no lymphadenopathy. no masses, no bruits, trachea midline, no venous distension - Respiratory Lungs sounds essentially clear throughout, diminished bilateral bases. Respirations are symmetrical and nonlabored. - Cardiovascular Regular rhythm and rate. S1 and S2 present, negative for S3, gallop or murmur. No edema present. - Abdomen Abdomen is soft, nontender and nondistended. Active bowel sounds present in all 4 abdominal quadrants. No guarding or rigidity. - Genitourinary Deferred - Rectum Deferred - Integumentary Skin is warm and dry. No clubbing or cyanosis is present. Midline abdominal incision is clean, dry and approximated. Corona intact. No drainage or redness present. no rash, no growths, no abnormal pigmentation - Neurologic No focal deficits. - Musculoskeletal Moves all 4 extremities with equal strength bilaterally. - Psychiatric oriented to time, oriented to person, oriented to place, speech is normal, memory intact Results - Labs 12/02/22 17:35 12/02/22 17:35 Abnormal Lab Results - Last 24 Hours (Table) 12/02/22 12/02/22 Range/Units 17:35 17:35 RBC 3.78 L (3.80-5.40) m/uL BUN 18 H (7-17) mg/dL Total Protein 6.2 L (6.3-8.2) g/dL Diabetes panel 12/02/22 Range/Units 17:35 Sodium 139 (137-145) mmol/L Potassium 4.4 (3.5-5.1) mmol/L Chloride 102 (98-107) mmol/L Carbon Dioxide 25 (22-30) mmol/L BUN 18 H (7-17) mg/dL Creatinine 0.66 (0.52-1.04) mg/dL Glucose 86 (74-99) mg/dL Calcium 9.1 (8.4-10.2) mg/dL AST 31 (14-36) U/L ALT 16 (4-34) U/L Alkaline Phosphatase 78 (38-126) U/L Total Protein 6.2 L (6.3-8.2) g/dL Albumin 3.6 (3.5-5.0) g/dL Calcium panel 12/02/22 Range/Units 17:35 Calcium 9.1 (8.4-10.2) mg/dL Albumin 3.6 (3.5-5.0) g/dL Pituitary panel 12/02/22 Range/Units 17:35 Sodium 139 (137-145) mmol/L Potassium 4.4 (3.5-5.1) mmol/L Chloride 102 (98-107) mmol/L Carbon Dioxide 25 (22-30) mmol/L BUN 18 H (7-17) mg/dL Creatinine 0.66 (0.52-1.04) mg/dL Glucose 86 (74-99) mg/dL Calcium 9.1 (8.4-10.2) mg/dL Adrenal panel 12/02/22 Range/Units 17:35 Sodium 139 (137-145) mmol/L Potassium 4.4 (3.5-5.1) mmol/L Chloride 102 (98-107) mmol/L Carbon Dioxide 25 (22-30) mmol/L BUN 18 H (7-17) mg/dL Creatinine 0.66 (0.52-1.04) mg/dL Glucose 86 (74-99) mg/dL Calcium 9.1 (8.4-10.2) mg/dL Total Bilirubin 0.5 (0.2-1.3) mg/dL AST 31 (14-36) U/L ALT 16 (4-34) U/L Alkaline Phosphatase 78 (38-126) U/L Total Protein 6.2 L (6.3-8.2) g/dL Albumin 3.6 (3.5-5.0) g/dL - Imaging Additional studies: Barium swallow study reviewed by Dr. Roscoe Hunt. Computed tomography scan of the abdomen and chest reviewed by Dr. Hunt. Assessment and Plan Assessment: History of esophageal hernia, status post prior esophageal hernia repair 11/26/2022, recurrent para-esophageal hernia Nausea and vomiting, likely secondary to above Lupus with recent flareup DVT with PE 30 years ago GERD Restless leg syndrome Lifelong nonsmoker Addendum: 76-year-old lady who is one-week status post repair of paraesophageal hernia presents with postprandial emesis and early satiety. Barium swallow and computed tomography scan show recurrent gastric herniation into the thoracic cavity with slide of the proximal one third to one half of the stomach through the esophageal hiatus. There is filling of the esophagus and proximal stomach but very slow transit through the hiatus into the distal stomach. This is consistent with partial gastric obstruction due to recurrent hernia status post hernia repair. Plan is to reexplore the patient and rerepair the esophageal hiatal hernia Plan: The patient was seen and examined under bedside on the [facility] medical surgical unit in conjunction with Dr. Roscoe Hunt. Her chart and diagnostics were reviewed. Dr. Hunt discussed treatment options with the patient including surgical laparotomy with repair of failed paraesophageal hernia repair. Risks and benefits of the surgery discussed with the patient and her present at her bedside. Knowing and understanding the risks the patient wished to proceed with the surgical option. The patient will be scheduled for a laparotomy with repair of failed paraesophageal hernia repair for today 12/03/2022 to be performed by Dr. Roscoe Hunt. Medical management and other comorbidities per primary care service. More recommendations to follow based on patient's clinical course. Thank you for this consult and we'll look forward to working with you in the care of this patient. I have personally seen and examined the patient, performed the documentation and the assessment and plan as written. 30 minutes spent on the visit. Deandre ADORNO
[2022-12-03] MEDS ORDERED: ONDANSETRON 4 MG/2 ML VIAL ONE (12:37)
[2022-12-03] MEDS ORDERED: DEXAMETHASONE SOD PHOSPHATE 4 MG/ML 1 ML VIAL IVP ONE (12:40)
[2022-12-03] MEDS ORDERED: ONDANSETRON 4 MG/2 ML VIAL IVP ONE (12:40)
[2022-12-03] MEDS ORDERED: fentaNYL (PF) 50 MCG/ML 2 ML AMP ONE (13:33)
[2022-12-03] MEDS ORDERED: MIDAZOLAM 2 MG/2 ML VIAL ONE (13:33)
[2022-12-03] MEDS ORDERED: KETAMINE HCL IN 0.9 % NACL 50 MG/5 ML SYRINGE ONE (13:33)
[2022-12-03] MEDS ORDERED: NEOSTIGMINE 1 MG/ML 10 ML VIAL ONE (13:33)
[2022-12-03] MEDS ORDERED: LIDOCAINE 1% INJ 10MG/ML (20 ML MDV) ONE (13:33)
[2022-12-03] MEDS ORDERED: PHENYLEPHRINE-0.9% NACL SYG 1,000 MCG/10 ML SYRINGE ONE (13:33)
[2022-12-03] MEDS ORDERED: ROCURONIUM 10 MG/ML (5 ML VIAL) IV ONE (13:33)
[2022-12-03] MEDS ORDERED: GLYCOPYRROLATE 0.2 MG/ML 2 ML VIAL ONE (13:33)
[2022-12-03] MEDS ORDERED: PROPOFOL 10 MG/ML 20 ML VIAL IV ONE (13:33)
[2022-12-03] MEDS ORDERED: HYDROmorphone (PF) 1 MG/ML ONE (13:33)
[2022-12-03] MEDS ORDERED: HYDROmorphone 0.5 MG/0.5 ML SYRINGE IVP ONE (15:59)
--- NOTE | 2022-12-03 16:00 | P.OP ---
Date of Procedure: 12/03/22 Preoperative Diagnosis: Recurrent hiatal hernia status post repair of paraesophageal hernia with partial gastric obstruction Postoperative Diagnosis: Same Procedure(s) Performed: Takedown of paraesophageal hernia repair reduction of incarcerated hiatal hernia and we repair of hiatal hernia with partial Erica wrap Implants: None Anesthesia: PORTIAA Surgeon: Roscoe Hunt Bisque Grader #1: Silvestre Azevedo Estimated Blood Loss (ml): 10 IV fluids (ml): 800 Urine output (ml): 200 Pathology: other (Hernia sac) Condition: stable Disposition: PACU Indications for Procedure: 76-year-old female who presented with a large paraesophageal hernia which was mildly symptomatic. Patient was discharged on postoperative tube. Patient states that since discharge she has had some difficulty getting food to pass and has had some vomiting of undigested food. She stated that breakfast was not a problem but subsequently meals were not tolerated. Upon notification was recommended the patient go to the emergency room. During swallow was performed demonstrating no evidence of perforation torsion etc. however there was slow passage of food through the stomach into the small bowel. Computed tomography scan was performed following the barium swallow. This demonstrated that the proximal portion of the stomach was above the diaphragm that there was partial gastric obstruction at the level of the esophageal hiatus. Operative Findings: On exploring the area of the gastric esophageal hiatus the wrap was visible on the right side just below the diaphragm. The greater curvature of the stomach was up in the chest. We were unable to reduce the hernia with gentle tension. Previous hiatal hernia repair was intact. Following takedown of the previous repair we were able to successfully reduce the hernia and bringing the lower portion of the esophagus below the diaphragm. Description of Procedure: Patient was brought to the operating room and placed supine on the operating table. Gen. anesthesia was induced. Abdomen was sterilely prepped and draped. After timeout, released midline incision was opened. Bookwalter retractor was used for exposure of the esophageal hiatus. A large portion of the greater curvature had re-herniated into the chest were unable to reduce this. The stomach was somewhat distended and nasogastric tube was successfully passed into the stomach and the stomach was decompressed. Previous hiatal hernia repair was intact and this was taken down. This finally allowed us to reduce the hernia. Kalli drain was passed around the distal esophagus for exposure. A small amount of residual hernia sac was excised. We redefined the diaphragmatic crura and determined that they were still excellent and appropriate for repair. His repair had not failed felt that there is no reason not to to redo the primary repair. This was performed using 0 Ethibond suture similar to previous. Once the sutures were tied and cut the esophageal hiatus was quite tight. We did not feel anything would herniate back up here but did not have been our feeling the first time 2. Was decided to go ahead and circumferentially pex the esophagus to the diaphragm and this was performed with multiple interrupted 3-0 silk sutures. We now proceeded with an anterior Erica gastric wrap tacking the anterior greater curve suture and body of the stomach to the diaphragm. He was properly positioned and secured at the nose with tape. Abdomen was irrigated with warm saline. Midline fascia was closed with double-stranded 1 PDS. The cutaneous tissues closed with 2-0 Vicryl. Skin was closed with skin clips. Dry sterile dressing was applied. Patient was extubated and transferred to recovery in stable condition.
--- NOTE | 2022-12-03 16:28 | XR ---
EXAMINATION TYPE: XR chest 1V portable DATE OF EXAM: 12/03/2022 HISTORY: Shortness of breath. COMPARISON: 11/28/2022 TECHNIQUE: Single view of the chest is submitted. FINDINGS: Demonstrated are scattered senescent parenchymal change. Increased hazy density right medial lung base may reflect infiltrate or atelectasis. NG tube seen cou rsing into the stomach. Midline skin charisse seen. The heart is stable. Hilar and mediastinal structures are within normal limits. Degenerative changes are seen of the dorsal spine. IMPRESSION: 1. Increased hazy density right medial lung base may reflect infiltrate or atelectasis. NG tube seen coursing into the stomach.
--- NOTE | 2022-12-03 16:32 | P.HPIM ---
History of Present Illness H&P Date: 12/03/22 Rebecca Thakkar, is a 76-year-old female who presented to [facility] emergency room with a chief complaint of nausea and vomiting. Patient was recently admitted to [facility] due to history of esophageal hernia and underwent a paraesophageal hernia repair on 11/26/2022. Patient was not doing well post surgery with inability to keep food down, she decided to come back to emergency room. She was evaluated in the emergency room vital examination on presentation re vealed a temperature of 98.2 pulse 70 respiration 18 blood pressure 118/54 pulse ox 96% on room air Laboratory data revealed a white blood count of 6.0 hemoglobin 11.4 platelet count 323 sodium 139 potassium 4.4 chloride 102 CO2 25 BUN 18 creatinine 0.66 AST 31 ALT 16 Testing in the emergency room revealed Patient was admitted to medical floor for further evaluation and treatment Past Medical History Past Medical History: Pulmonary Embolus (PE), Skin Disorder Additional Past Medical History / Comment(s): ivaricose veins, RESTLESS LEG SYNDROME KRISTY. takes mirapex at night,OSTEOPOROSIS ,LUPUS, para esophageal hernia was subsequent repair History of Any Multi-Drug Resistant Organisms: None Reported Past Surgical History: Hernia Repair, Hysterectomy, Orthopedic Surgery Additional Past Surgical History / Comment(s): left carpel tunnnel Past Anesthesia/Blood Transfusion Reactions: Postoperative Nausea & Vomiting (PONV) Past Psychological History: No Psychological Hx Reported Additional Psychological History / Comment(s): . Lives in the family home with her . 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 She has no experience. No international travel. She is a lifelong nonsmoker with no severe alcohol use. No r ecreational drug use. There is a pet dog in the home which is a Pomeranian. It's been there for 3 years. She lives with her and he has no skin troubles. She has no exposure to farm animals at this time, although did have some exposure as a child. Smoking Status: Never smoker Past Alcohol Use History: None Reported Past Drug Use History: None Reported - Past Family History Sister(s) Family Medical History: Cancer Daughter(s) Family Medical History: Cancer Father Family Medical History: Cancer Mother Family Medical History: Cancer Medications and Allergies Home Medications Medication Instructions Recorded Confirmed Type Hydroxychloroquine Sulfate 200 mg PO DAILY 04/27/22 12/02/22 History Calcium Carbonate/Vitamin D3 1 tab PO DAILY 07/24/22 12/02/22 History [Calcium 600 mg-D3 10 Mcg (400 Iu)] Famotidine [Pepcid] 20 mg PO BID-W/MEALS 07/24/22 12/02/22 History Albuterol Inhaler [Ventolin Hfa 2 puff INHALATION RT-QID PRN 12/02/22 12/02/22 History Inhaler] Pramipexole [Mirapex] 1 mg PO HS 12/02/22 12/02/22 History Allergies Allergy/AdvReac Type Severity Reaction Status Date / Time estrogens, conjugated Allergy Severe CLOT IN Verified 12/03/22 12:29 [From Premarin] LEGS gabapentin [From Neurontin] Allergy Severe CONSTANT Verified 12/03/22 12:29 MOVEMENT OF WHOLE BODY ciprofloxacin [From Cipro] Allergy muscle and Verified 12/03/22 12:29 bone weakness ciprofloxacin HCl Allergy muscle and Verified 12/03/22 12:29 [From Cipro] bone weakness levofloxacin [From Levaquin] Allergy Rash/Hives Verified 12/03/22 12:29 quinine Allergy WEAKNESS Verified 12/03/22 12:29 IN THE LEGS Sulfa (Sulfonamide Allergy SEVERE Verified 12/03/22 12:29 Antibiotics) WEAKNESS OF LEGS, Hives sulfamethoxazole Allergy SEVERE Verified 12/03/22 12:29 [From Bactrim] WEAKNESS OF LEGS, Hives trimethoprim [From Bactrim] Allergy SEVERE Verified 12/03/22 12:29 WEAKNESS OF LEGS, Hives Physical Exam Vitals: Vital Signs Temp Pulse Pulse Resp BP BP Pulse Ox 12/03/22 12:27 98.2 F 62 16 141/58 95 12/03/22 08:05 54 L 18 12/03/22 07:03 97.2 F L 54 L 18 110/70 98 12/03/22 02:00 98 F 61 103/64 95 12/02/22 21:15 98.3 F 89 17 122/71 96 12/02/22 20:16 98.2 F 74 18 113/74 96 12/02/22 18:56 71 18 119/65 97 12/02/22 17:36 70 18 109/52 97 12/02/22 16:24 65 18 116/59 97 12/02/22 15:39 98.2 F 70 18 118/54 96 Intake and Output 12/02/22 12/03/22 12/03/22 22:59 06:59 14:59 Other: # Voids 1 Weight 66.678 kg In general patient is alert and oriented x 3 in no distress HEENT head normocephalic and atraumatic Neck is supple no JVD no goiter no lymphadenopathy no carotid bruit Chest examination is clear to auscultation no crackles no wheezing Cardiac exam reveals regular heart sounds S1 and S2 no gallops no murmurs Abdomen is soft nontender no organomegaly with normal bowel sounds Extremity exam reveals no edema no cyanosis or clubbing Neurological examination reveals no gross focal deficits Results CBC & Chem 7: 12/02/22 17:35 12/02/22 17:35 Labs: Abnormal Lab Results - Last 24 Hours (Table) 12/02/22 12/02/22 Range/Units 17:35 17:35 RBC 3.78 L (3.80-5.40) m/uL BUN 18 H (7-17) mg/dL Total Protein 6.2 L (6.3-8.2) g/dL Thrombosis Risk Factor Assmnt - Choose All That Apply Each Risk Factor Represents 2 Points: Major surgery Each Risk Factor Represents 3 Points: Age 75 years or older Thrombosis Risk Factor Assessment Total Risk Factor Score: 5 Thrombosis Risk Factor Assessment Level: High Risk Assessment and Plan Plan: Intractable nausea and vomiting History of esophageal hernia status post recent esophageal hernia repair on 11/26/2022 Underlying history of lupus erythematous Underlying history of DVT and PE History of gastroesophageal reflux disease History of restless leg syndrome At this time patient is admitted to medical floor Thoracic surgery consultation was requested Will follow closely
[2022-12-03] MEDS ORDERED: ALBUTEROL NEBULIZED 2.5 MG/3 ML INHALATION PRN (17:58)
[2022-12-03] MEDS ORDERED: bisacodyL 10 MG SUPP RECTAL PRN (17:58)
[2022-12-03] MEDS ORDERED: DEXTROSE 5%-0.45% NACL 1,000 ML with POTASSIUM CHLORIDE 20 MEQ IV SCH ×2 (17:58)
[2022-12-03] MEDS ORDERED: METOCLOPRAMIDE 5 MG/ML 2 ML VIAL IVP PRN (17:58)
[2022-12-03 18:24] LABS: Glucose,Whole Blood 88 mg/dL (70-110)
[2022-12-03] MEDS: KETOROLAC 15 MG/ML 1 ML VIAL IVP SCH (18:34)
[2022-12-03] MEDS: D5-0.45% NACL WITH KCL 20MEQ/L 1,000 ML IV SCH (18:39)
[2022-12-03] MEDS: ONDANSETRON 4 MG/2 ML VIAL IVP PRN (18:42)
[2022-12-03] MEDS: ACETAMINOPHEN IV (For NPO) 1,000 MG in EMPTY BAG 1 BAG IVPB SCH (18:44)
[2022-12-03] MEDS: FAMOTIDINE 20 MG TAB NG-TUBE SCH ×2 (18:45→20:29)
[2022-12-03] MEDS: HEPARIN SODIUM,PORCINE 5,000 UNIT/ML 1 ML VIAL SQ SCH (18:45)
[2022-12-03] MEDS: MORPHINE SULFATE 2 MG/ML SYRINGE IVP PRN (20:51)
[2022-12-03] MEDS ORDERED: PRAMIPEXOLE 1 MG TAB NG-TUBE SCH (21:00)
[2022-12-04] MEDS: HEPARIN SODIUM,PORCINE 5,000 UNIT/ML 1 ML VIAL SQ SCH ×4 (00:08→23:27)
[2022-12-04] MEDS: ACETAMINOPHEN IV (For NPO) 1,000 MG in EMPTY BAG 1 BAG IVPB SCH ×3 (00:09→12:16)
[2022-12-04] MEDS: KETOROLAC 15 MG/ML 1 ML VIAL IVP SCH ×5 (00:09→23:26)
[2022-12-04] MEDS: MORPHINE SULFATE 2 MG/ML SYRINGE IVP PRN ×4 (04:33→21:26)
[2022-12-04 04:40] LABS: ALT 20 U/L (4-34); AST 44 U/L (14-36); African American GFR (CKD) >90 (>60 ml/min/1.73 sqM); Albumin 2.9 g/dL (3.5-5.0); Alkaline Phosphatase 73 U/L (38-126); Anion Gap 11 mmol/L; Blood Urea Nitrogen 15 mg/dL (7-17); Calcium 8.2 mg/dL (8.4-10.2); Carbon Dioxide 21 mmol/L (22-30); Chloride 102 mmol/L (98-107); Glucose 101 mg/dL (74-99); Non-African American GFR(CKD) 87 (>60 ml/min/1.73 sqM); Potassium 4.7 mmol/L (3.5-5.1); Sodium 134 mmol/L (137-145); Total Bilirubin 0.4 mg/dL (0.2-1.3); Total Protein 5.2 g/dL (6.3-8.2)
[2022-12-04 05:05] LABS: Basophils % (A) 0 %; Eosinophils % (A) 0 %; HGB 11.2 gm/dL (11.4-16.0); Lymphocytes # (A) 1.3 k/uL (1.0-4.8); Lymphocytes % (A) 11 %; MCH 30.4 pg (25.0-35.0); MCHC 32.9 g/dL (31.0-37.0); MCV 92.5 fL (80.0-100.0); Monocytes # (A) 0.6 k/uL (0-1.0); Monocytes % (A) 5 %; Neutrophils # (A) 10.1 k/uL (1.3-7.7); Neutrophils % (A) 82 %; Platelet Count 321 k/uL (150-450); RBC 3.68 m/uL (3.80-5.40); WBC 12.3 k/uL (3.8-10.6)
[2022-12-04] MEDS: D5-0.45% NACL WITH KCL 20MEQ/L 1,000 ML IV SCH ×2 (06:24→18:34)
[2022-12-04] MEDS: FAMOTIDINE 20 MG TAB NG-TUBE SCH (06:30)
--- NOTE | 2022-12-04 08:57 | XR ---
EXAMINATION TYPE: XR chest 1V portable DATE OF EXAM: 12/04/2022 Comparison: 12/03/2022 Clinical History: 76-year-old female Postoperative paraesophageal hernia repair Findings: NG tube courses below the diaphragm. Heart mildly enlarged. Slight increasing by basilar opacities. S lightly greater leftward course of the NG tube in the lower chest. Impression: 1. Increasing bibasilar opacities, likely increasing small effusions with adjacent atelectasis and/or consolidation. 2. Slight increase in leftward positioning of the NG tube in the lower chest.
[2022-12-04] MEDS ORDERED: HYDROXYCHLOROQUINE SULFATE 200 MG TAB NG-TUBE SCH (09:00)
[2022-12-04] MEDS ORDERED: CALCIUM CARB-VIT D 500 MG-5 MCG TAB NG-TUBE SCH (09:00)
--- NOTE | 2022-12-04 09:06 | P.CNPUL ---
History of Present Illness Consult date: 12/04/22 Chief complaint: Recurrent hiatal hernia with difficulties in feeding History of present illness: 76-year-old female patient with a large paraesophageal hernia that was symptomatic. The patient was having difficulties with feeding and she was also having emesis and with indigestion. There was recommended that the hernia be surgically repaired and the patient was taken to the operating room and the patient underwent a takedown of paraesophageal hernia and reduction of an incarcerated hiatal hernia and repair of the hiatal hernia. Currently, the patient is postop day #1. She is currently being monitored in the intensive care unit. She is, comfortable and she is on oxygen at 2 L/m nasal cannula. Overnight, no significant events. The patient is currently on IV fluids with D5 half-normal saline at rate of 75 mL an hour. The postop chest x-ray from yesterday showed no acute abnormalities. NG tube was in a good location. She does have some background cardiomegaly. Repeat chest x-ray from today shows small bilateral pleural effusions. NG tube remains in a good location. There is also some atelectatic changes in the lung bases bilaterally. The patient is calm and comfortable. Hemodynamically stable. Cardiac rhythm is sinus. She is normotensive at this point in time. Hemoglobin is 11.2, white cycles of 12.3, sodium level is at 134 with a potassium level of 4.7 and a BUN of 15 with a creatinine of 0.6. Total protein is 5.2 with an albumin of 2.9. Note that the patient had an initial surgery with laparotomy and lysis of effusion and taken down of the paraesophageal hernia and resection of a hernial sac on 11/26/2022 and the patient was not doing well postop and she was having difficulties with keeping food down and for that reason, it evaluation was done. CAT scan of the abdomen and chest that was done on 12/02/2022 showed postsurgical changes from hiatal hernia repair a moderate-sized hiatal hernia was again demonstrated. No extravasation of contrast. The barium swallow that was done on 12/02/2022 showed that the esophagus was dilated and there was tapering of the distal esophagus with delayed passage of contrast from esophagus to the stomach related to partial obstruction. For all this reasons, the patient was taken back to the operating room. Her comorbid conditions including previous history of lupus, previous history of DVT and pulmonary embolism and restless leg syndrome. Review of Systems Constitutional: Reports weakness, Reports weight loss Eyes: denies as per HPI, denies blurred vision, denies bulging eye, denies decreased vision, denies diplopia, denies discharge, denies dry eye, denies irritation, denies itching, denies pain, denies photophobia, denies loss of peripheral vision, denies loss of vision, denies tunnel vision/blind spots Ears: deny: decreased hearing, ear discharge, earache, tinnitus Ears, nose, mouth and throat: Reports as per HPI Breasts: absent: as per HPI, change in shape, gynecomastia, masses, nipple discharge, pain, skin changes, swelling Breasts: Reports as per HPI Cardiovascular: Reports as per HPI Respiratory: Reports as per HPI Gastrointestinal: Reports heartburn, Reports indigestion Genitourinary: Reports as per HPI Menstruation: Reports as per HPI Musculoskeletal: Reports as per HPI Musculoskeletal: absent: ankle pain, ankle stiffness, ankle swelling Integumentary: Reports as per HPI Neurological: Reports as per HPI Psychiatric: Reports as per HPI Endocrine: Reports as per HPI Hematologic/Lymphatic: Reports as per HPI Allergic/Immunologic: Reports as per HPI Past Medical History Past Medical History: Pulmonary Embolus (PE), Skin Disorder Additional Past Medical History / Comment(s): varicose veins, RESTLESS LEG SYNDROME KRISTY. takes mirapex at night,OSTEOPOROSIS ,LUPUS, para esophageal hernia was subsequent repair History of Any Multi-Drug Resistant Organisms: None Reported Past Surgical History: Hernia Repair, Hysterectomy, Orthopedic Surgery Additional Past Surgical History / Comment(s): left carpel tunnnel Past Anesthesia/Blood Transfusion Reactions: Postoperative Nausea & Vomiting (PONV) Past Psychological History: No Psychological Hx Reported Additional Psychological History / Comment(s): . Lives in the family home with her . 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 She has no experience. No international travel. She is a lifelong nonsmoker with no severe alcohol use. No recreational drug use. There is a pet dog in the home which is a Pomeranian. It's been there for 3 years. She lives with her and he has no skin troubles. She has no exposure to farm animals at this time, although did have some exposure as a child. Smoking Status: Never smoker Past Alcohol Use History: None Reported Past Drug Use History: None Reported - Past Family History Sister(s) Family Medical History: Cancer Daughter(s) Family Medical History: Cancer Father Family Medical History: Cancer Mother Family Medical History: Cancer Medications and Allergies Home Medications Medication Instructions Recorded Confirmed Type Hydroxychloroquine Sulfate 200 mg PO DAILY 04/27/22 12/02/22 History Calcium Carbonate/Vitamin D3 1 tab PO DAILY 07/24/22 12/02/22 History [Calcium 600 mg-D3 10 Mcg (400 Iu)] Famotidine [Pepcid] 20 mg PO BID-W/MEALS 07/24/22 12/02/22 History Albuterol Inhaler [Ventolin Hfa 2 puff INHALATION RT-QID PRN 12/02/22 12/02/22 History Inhaler] Pramipexole [Mirapex] 1 mg PO HS 12/02/22 12/02/22 History Allergies Allergy/AdvReac Type Severity Reaction Status Date / Time estrogens, conjugated Allergy Severe CLOT IN Verified 12/03/22 12:29 [From Premarin] LEGS gabapentin [From Neurontin] Allergy Severe CONSTANT Verified 12/03/22 12:29 MOVEMENT OF WHOLE BODY ciprofloxacin [From Cipro] Allergy muscle and Verified 12/03/22 12:29 bone weakness ciprofloxacin HCl Allergy muscle and Verified 12/03/22 12:29 [From Cipro] bone weakness levofloxacin [From Levaquin] Allergy Rash/Hives Verified 12/03/22 12:29 quinine Allergy WEAKNESS Verified 12/03/22 12:29 IN THE LEGS Sulfa (Sulfonamide Allergy SEVERE Verified 12/03/22 12:29 Antibiotics) WEAKNESS OF LEGS, Hives sulfamethoxazole Allergy SEVERE Verified 12/03/22 12:29 [From Bactrim] WEAKNESS OF LEGS, Hives trimethoprim [From Bactrim] Allergy SEVERE Verified 12/03/22 12:29 WEAKNESS OF LEGS, Hives Physical Exam Vitals: Vital Signs Temp Pulse Pulse Resp BP BP Pulse Ox 12/04/22 07:00 71 7 L 98/61 97 12/04/22 06:00 66 13 115/63 96 12/04/22 05:00 71 16 115/60 97 12/04/22 04:00 98.3 F 60 12 103/53 96 10/06/23 03:00 80 12 104/56 95 12/04/22 02:00 76 12 105/51 95 12/04/22 01:00 71 18 104/68 96 12/04/22 00:00 98 F 65 12 102/51 96 12/03/22 23:18 65 15 102/51 96 12/03/22 23:00 71 15 98/57 97 12/03/22 22:00 76 20 101/64 95 12/03/22 21:00 77 18 117/74 95 12/03/22 20:00 98.4 F 71 16 108/60 95 12/03/22 19:30 71 6 L 108/60 95 12/03/22 19:00 67 18 108/60 95 12/03/22 18:30 97.7 F 80 17 95 12/03/22 18:21 68 24 125/66 95 12/03/22 18:03 76 16 108/61 96 12/03/22 17:30 77 16 107/59 96 12/03/22 17:00 66 16 108/58 96 12/03/22 16:30 60 16 126/61 95 12/03/22 16:15 62 16 132/61 99 12/03/22 16:00 63 16 147/66 99 12/03/22 15:45 60 16 141/62 98 12/03/22 15:36 98.2 F 74 16 124/63 95 12/03/22 12:27 98.2 F 62 16 141/58 95 Intake and Output 12/03/22 12/04/22 12/04/22 22:59 06:59 14:59 Intake Total 900 775 Output Total 750 585 Balance 150 190 Intake: IV 450 Intake, IV Titration 450 775 Amount ACETAMINOPHEN IV (For NPO 100 100 ) 1,000 mg In Empty Bag 1 bag @ 400 mls/hr IVPB Q6HR [facility] Rx#:[id number] D5-0.45% NaCl with KCl 300 675 20Meq/l 1,000 ml @ 75 mls /hr IV .[id number] [facility] Rx#: [id number] ceFAZolin 2 gm In Sodium 50 Chloride 0.9% 50 ml @ 100 mls/hr IVPB ONCE ONE Rx# :[id number] Output: Urine 725 585 Estimated Blood Loss 25 Other: Voiding Method Indwelling Catheter Indwelling Catheter Weight 71 kg Gen. appearance the patient is calm and comfortable, not in acute distress and she is on 2 L of oxygen by nasal cannula. Patient has an NG tube in place. Head exam was generally normal. There was no scleral icterus or corneal arcus. Mucous membranes were moist. Neck was supple and without jugular venous distension, thyromegaly, or carotid bruits. Carotids were easily palpable bilaterally. There was no adenopathy. Lungs were clear to auscultation and percussion, and with normal diaphragmatic excursion. No wheezes or rales were noted. Cardiac exam revealed the PMI to be normally situated and sized. The rhythm was regular and no extrasystoles were noted during several minutes of auscultation. The first and second heart sounds were normal and physiologic splitting of the second heart sound was noted. There were no murmurs, rubs, clicks, or gallops. Abdomen is soft. There is a midline abdominal surgical scar which is dry clean and intact. Bowel sounds are hypoactive. No abdominal distention. No direct tenderness, no rebound tenderness, no guarding Examination of the extremities revealed easily palpable radial, femoral and pedal pulses. There was no cyanosis, clubbing or edema. Examination of the skin revealed no evidence of significant rashes, suspicious appearing nevi or other concerning lesions. Neurologically, the patient is awake and alert and the patient does not have any focal neurological deficit. Cranial nerves are essentially intact. Results - Laboratory Findings CBC and BMP: 12/04/22 03:57 12/04/22 03:57 Abnormal lab findings: Abnormal Labs 12/02/22 12/02/22 12/04/22 17:35 17:35 03:57 WBC 12.3 H RBC 3.78 L 3.68 L Hgb 11.2 L Neutrophils # 10.1 H Sodium Carbon Dioxide BUN 18 H Glucose Calcium AST Total Protein 6.2 L Albumin 12/04/22 03:57 WBC RBC Hgb Neutrophils # Sodium 134 L Carbon Dioxide 21 L BUN Glucose 101 H Calcium 8.2 L AST 44 H Total Protein 5.2 L Albumin 2.9 L - Diagnostic Findings Chest x-ray: image reviewed Assessment and Plan Plan: Repair of a recurrent paraesophageal hernia. Surgery was done for partial gastric obstruction. He should've surgery was done on 11/26/2022 and follow-up surgery was done on 12/03/2022. Currently the patient is stable in the intensive care unit. NG tube is in place. Bowel sounds are hypoactive. She is postop day #0. Small bilateral pleural effusions Dysphagia secondary to a large paraesophageal symptomatic hiatal hernia Remote history of DVT and pulmonary embolism, currently on no anticoagulants History of lupus maintain on Plaquenil patient basis History of restless leg syndrome Osteoporosis Plan Keep the NG tube in place Provide the patient incentive spirometer Bowel sounds are hypoactive at this point in time. The patient will need to increase her mobility Patient will need a follow-up barium swallow to evaluate contrast passes from the esophagus down to the stomach IV fluids D5 half-normal saline at 75 mL an hour Pain control with IV Tylenol Heparin subcu for DVT prophylaxis Pepcid We'll continue to follow
[2022-12-04] MEDS: ONDANSETRON 4 MG/2 ML VIAL IVP PRN (09:29)
--- NOTE | 2022-12-04 10:04 | P.PN ---
Subjective Progress Note Date: 12/04/22 Rebecca Thakkar, is a 76-year-old female who presented to [facility] emergency room with a chief complaint of nausea and vomiting. Patient was recently admitted to [facility] due to history of esophageal hernia and underwent a paraesophageal hernia repair on 11/26/2022. Patient was not doing well post surgery with inability to keep food down, she decided to come back to emergency room. She was evaluated in the emergency room vital examination on presentation revealed a temperature of 98.2 pulse 70 respiration 18 blood pressure 118/54 pulse ox 96% on room air Laboratory data revealed a white blood count of 6.0 hemoglobin 11.4 platelet count 323 sodium 139 potassium 4.4 chloride 102 CO2 25 BUN 18 creatinine 0.66 AST 31 ALT 16 Testing in the emergency room revealed Patient was admitted to medical floor for further evaluation and treatment On 12/04/2022 patient underwent repair of recurrent paraesophageal hernia with follow-up surgery completed on 12/03/[address] Hunt. Patient was transferred to the intensive care unit postoperative. Patient is stable at this time NG tube in place. Current vital signs temp 98.3, heart rate 60, blood pressure 103/53 with a pulse ox 96% on 2 L. At this time patient planning of abdominal discomfort. Patient denies chest pain or shortness breath. Patient denies nausea vomiting or diarrhea. Patient denies any urinary burning or frequency Objective - Vital Signs Vital signs: Vital Signs Temp 98.3 F 12/04/22 04:00 Pulse 71 12/04/22 07:00 Resp 7 L 12/04/22 07:00 BP 98/61 12/04/22 07:00 Pulse Ox 97 12/04/22 07:00 FiO2 Intake & Output 12/03/22 12/04/22 12/04/22 18:59 06:59 18:59 Intake Total 1500 1225 Output Total 575 760 Balance 925 465 Weight 71 kg Intake: IV 1500 Intake, IV Titration 1225 Amount ACETAMINOPHEN IV (For NPO 200 ) 1,000 mg In Empty Bag 1 bag @ 400 mls/hr IVPB Q6HR [facility] Rx#:[id number] D5-0.45% NaCl with KCl 975 20Meq/l 1,000 ml @ 75 mls /hr IV .[id number] [facility] Rx#: [id number] ceFAZolin 2 gm In Sodium 50 Chloride 0.9% 50 ml @ 100 mls/hr IVPB ONCE ONE Rx# :[id number] Output: Urine 550 760 Estimated Blood Loss 25 Other: Voiding Method Indwelling Catheter - Exam In general patient is alert and oriented x 3 in no distress HEENT head normocephalic and atraumatic Neck is supple no JVD no goiter no lymphadenopathy no carotid bruit Chest examination is clear to auscultation no crackles no wheezing Cardiac exam reveals regular heart sounds S1 and S2 no gallops no murmurs Abdomen is soft nontender no organomegaly with normal bowel sounds Extremity exam reveals no edema no cyanosis or clubbing Neurological examination reveals no gross focal deficits - Labs CBC & Chem 7: 12/04/22 03:57 12/04/22 03:57 Labs: Abnormal Lab Results - Last 24 Hours (Table) 12/04/22 12/04/22 Range/Units 03:57 03:57 WBC 12.3 H (3.8-10.6) k/uL RBC 3.68 L (3.80-5.40) m/uL Hgb 11.2 L (11.4-16.0) gm/dL Neutrophils # 10.1 H (1.3-7.7) k/uL Sodium 134 L (137-145) mmol/L Carbon Dioxide 21 L (22-30) mmol/L Glucose 101 H (74-99) mg/dL Calcium 8.2 L (8.4-10.2) mg/dL AST 44 H (14-36) U/L Total Protein 5.2 L (6.3-8.2) g/dL Albumin 2.9 L (3.5-5.0) g/dL Assessment and Plan Plan: Intractable nausea and vomiting History of esophageal hernia status post recent esophageal hernia repair on 11/26/2022. 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
--- NOTE | 2022-12-04 10:58 | P.PN ---
Subjective Progress Note Date: 12/04/22 Principal diagnosis: Paraesophageal hernia. Past medical history significant for lupus with recent flareup, DVT with PE 30 years ago, GERD, restless leg syndrome, lifelong nonsmok er. POD #1 Takedown of paraesophageal hernia repair reduction of incarcerated hiatal hernia and re-repair of hiatal hernia with partial Erica wrap. The patient was seen and examined in follow-up today 12/05/2019 at her bedside in the intensive care unit. Currently she is lying in bed, is awake, alert, oriented 3 and is in no acute apparent distress. She denies any complaints of pain or shortness of breath at this time, and denies any complaints of nausea. Oxygen saturation are 96% on room air and her bedside telemetry showing normal sinus rhythm heart rate 68 BPM. NG tube remains in place to low intermittent wall suction, draining thin bilious drainage with 50 mL output since surgery. Rodriguez catheter remained in place for accurate I's and O's draining clear yellow urine with 485 mL output in the last 8 hours. Chest x-ray was reviewed. Objective - Vital Signs Vital signs: Vital Signs Temp 98.3 F 12/04/22 04:00 Pulse 71 12/04/22 07:00 Resp 7 L 12/04/22 07:00 BP 98/61 12/04/22 07:00 Pulse Ox 97 12/04/22 07:00 FiO2 Intake & Output 12/03/22 12/04/22 12/04/22 18:59 06:59 18:59 Intake Total 1500 1225 Output Total 575 760 Balance 925 465 Weight 71 kg Intake: IV 1500 Intake, IV Titration 1225 Amount ACETAMINOPHEN IV (For NPO 200 ) 1,000 mg In Empty Bag 1 bag @ 400 mls/hr IVPB Q6HR [facility] Rx#:[id number] D5-0.45% NaCl with KCl 975 20Meq/l 1,000 ml @ 75 mls /hr IV .[id number] [facility] Rx#: [id number] ceFAZolin 2 gm In Sodium 50 Chloride 0.9% 50 ml @ 100 mls/hr IVPB ONCE ONE Rx# :[id number] Output: Urine 550 760 Estimated Blood Loss 25 Other: Voiding Method Indwelling Catheter - Exam CONSTITUTIONAL: Appears comfortable, cooperative, no acute distress RESPIRATORY: Lungs sounds essentially clear throughout, diminished to her bases bilaterally. Respirations are symmetrical, nonlabored. Currently on room air with oxygen saturation 96%. Able to achieve Strong cough. CARDIOVASCULAR: S1, S2 present. Regular rate and rhythm, sinus rhythm on telemetry. Palpable peripheral pulses bilaterally. No edema present GASTROINTESTINAL: Abdomen soft, nontender, nondistended. Hypoactive bowel sounds present 4 quadrants. Nothing by mouth at this time. Denies flatus. NG tube in place to low intermittent wall suction, draining thin bilious drainage. GENITOURINARY: Rodriguez draining clear yellow urine, 485 mL in the last 8 hours. INTEGUMENTARY: Skin is warm and dry with evidence of good perfusion. Surgical incision well approximated, charisse intact. Silver dressing is clean, dry and in place. NEUROLOGIC: Cranial nerves II through XII intact. No focal deficits. MUSKULOSKELETAL: Able to move all extremities, strength equal bilaterally PSYCHIATRIC: Alert and oriented to person place and time, appropriate affect, intact judgment and insight - Allied health notes Allied health notes reviewed: nursing - Labs CBC & Chem 7: 12/04/22 03:57 12/04/22 03:57 Labs: Abnormal Lab Results - Last 24 Hours (Table) 12/04/22 12/04/22 Range/Units 03:57 03:57 WBC 12.3 H (3.8-10.6) k/uL RBC 3.68 L (3.80-5.40) m/uL Hgb 11.2 L (11.4-16.0) gm/dL Neutrophils # 10.1 H (1.3-7.7) k/uL Sodium 134 L (137-145) mmol/L Carbon Dioxide 21 L (22-30) mmol/L Glucose 101 H (74-99) mg/dL Calcium 8.2 L (8.4-10.2) mg/dL AST 44 H (14-36) U/L Total Protein 5.2 L (6.3-8.2) g/dL Albumin 2.9 L (3.5-5.0) g/dL - Imaging and Cardiology Chest x-ray: report reviewed, image reviewed Assessment and Plan Assessment: History of esophageal hernia, status post prior esophageal hernia repair 11/26/2022, , status post takedown of paraesophageal hernia repair reduction of incarcerated hiatal hernia and re-repair of hiatal hernia with partial Erica wrap Nausea and vomiting, likely secondary to above Lupus with recent flareup DVT with PE 30 years ago GERD Restless leg syndrome Lifelong nonsmoker Plan: We will discontinue the NG tube, start her on ice chips and sips of water with her medications, if tolerating sips and ice chips May progress to clear liquid diet tonight. Patient to remain sitting completely upright for all oral intake as well as 2 hours afterward, discussed with the patient. Increase activity, ambulate as tolerated. Encourage incentive spirometry use 10 times every hour while awake. Continue D545 normal saline with 20 of KCl at 75 mL per hour. GI/DVT prophylaxis. Continue home medications. Transfer orders placed for 3 S. cardiac stepdown unit, may transfer when bed available. More recommendations to follow based on patient's clinical course. Time with Patient: Greater than 30
[2022-12-04] MEDS: FAMOTIDINE 20 MG TAB PO SCH (16:45)
[2022-12-04] MEDS: PRAMIPEXOLE 1 MG TAB PO SCH (20:12)
[2022-12-05] MEDS: KETOROLAC 15 MG/ML 1 ML VIAL IVP SCH ×4 (05:14→23:44)
[2022-12-05] MEDS: FAMOTIDINE 20 MG TAB PO SCH ×2 (06:23→16:16)
[2022-12-05 07:49] LABS: Basophils % (A) 0 %; Eosinophils # (A) 0.4 k/uL (0-0.7); Eosinophils % (A) 5 %; HCT 33.5 % (34.0-46.0); HGB 10.8 gm/dL (11.4-16.0); Lymphocytes # (A) 1.5 k/uL (1.0-4.8); Lymphocytes % (A) 22 %; MCH 30.4 pg (25.0-35.0); MCHC 32.3 g/dL (31.0-37.0); MCV 94.1 fL (80.0-100.0); Monocytes # (A) 0.4 k/uL (0-1.0); Monocytes % (A) 7 %; Neutrophils # (A) 4.3 k/uL (1.3-7.7); Neutrophils % (A) 64 %; Platelet Count 318 k/uL (150-450); RBC 3.56 m/uL (3.80-5.40); WBC 6.6 k/uL (3.8-10.6)
[2022-12-05 08:05] LABS: ALT 15 U/L (4-34); AST 27 U/L (14-36); African American GFR (CKD) >90 (>60 ml/min/1.73 sqM); Albumin 2.7 g/dL (3.5-5.0); Alkaline Phosphatase 65 U/L (38-126); Anion Gap 5 mmol/L; Blood Urea Nitrogen 12 mg/dL (7-17); Calcium 7.8 mg/dL (8.4-10.2); Carbon Dioxide 25 mmol/L (22-30); Chloride 104 mmol/L (98-107); Glucose 95 mg/dL (74-99); Non-African American GFR(CKD) 89 (>60 ml/min/1.73 sqM); Potassium 4.5 mmol/L (3.5-5.1); Sodium 134 mmol/L (137-145); Total Bilirubin 0.4 mg/dL (0.2-1.3); Total Protein 5.1 g/dL (6.3-8.2)
[2022-12-05] MEDS: CALCIUM CARB-VIT D 500 MG-5 MCG TAB PO SCH (08:09)
[2022-12-05] MEDS: HEPARIN SODIUM,PORCINE 5,000 UNIT/ML 1 ML VIAL SQ SCH ×3 (08:09→23:44)
[2022-12-05] MEDS: HYDROXYCHLOROQUINE SULFATE 200 MG TAB PO SCH (08:09)
--- NOTE | 2022-12-05 09:03 | P.PN ---
Subjective Progress Note Date: 12/05/22 Principal diagnosis: Paraesophageal hernia status post recent repair, intractable nausea and vomiting. Previous medical history lupus with recent flareup, DVT with PE 30 years ago, GERD, restless leg syndrome, lifelong nonsmoker. POD #2 Takedown of paraesophageal hernia repair reduction of incarcerated hiatal hernia and re-repair of hiatal hernia with partial Erica wrap. The patient was seen and examined this morning ambulating in her room on the cardiac stepdown unit in no acute distress. States pain is controlled on current medication regimen, denies shortness of breath. Denies abdominal pain or nausea, denies any flatus at this time. She was able to tolerate clear liquids last night. Abdominal binder remains in place. No other concerns. Objective - Vital Signs Vital signs: Vital Signs Temp 98.0 F 12/05/22 08:17 Pulse 61 12/05/22 08:17 Resp 18 12/05/22 08:17 BP 95/58 12/05/22 08:17 Pulse Ox 97 12/05/22 08:45 FiO2 Intake & Output 12/04/22 12/05/22 12/05/22 18:59 06:59 18:59 Intake Total 750 240 Output Total 470 Balance 280 240 Intake: IV 750 D5-0.45% NaCl with KCl 750 20Meq/l 1,000 ml @ 75 mls /hr IV .[id number] [facility] Rx#: [id number] Oral 240 Output: Urine 470 Other: Voiding Method Indwelling Catheter Toilet Toilet # Voids 1 1 - Exam CONSTITUTIONAL: Appears comfortable, cooperative, no acute distress RESPIRATORY: Lungs sounds diminished bilaterally. Respirations even, nonlabored. Currently on room air with oxygen saturation 93%. Able to achieve 1000 mL on incentive spirometry. Strong cough. CARDIOVASCULAR: S1, S2 present. Regular rate and rhythm, sinus rhythm on telemetry. Palpable peripheral pulses bilaterally. No edema present. No calf pain or tenderness noted GASTROINTESTINAL: Abdomen soft, nontender, nondistended. Hypoactive bowel sounds present 4 quadrants. Tolerating clear liquid diet. Denies flatus. Abdominal binder in place GENITOURINARY: Continues to void INTEGUMENTARY: Skin is warm and dry. Incision well approximated NEUROLOGIC: Cranial nerves II through XII intact MUSKULOSKELETAL: Able to move all extremities, strength equal bilaterally, gait normal PSYCHIATRIC: Alert and oriented to person place and time, appropriate affect, intact judgment and insight - Allied health notes Allied health notes reviewed: nursing - Labs CBC & Chem 7: 12/05/22 07:00 12/05/22 07:00 Labs: Abnormal Lab Results - Last 24 Hours (Table) 12/05/22 12/05/22 Range/Units 07:00 07:00 RBC 3.56 L (3.80-5.40) m/uL Hgb 10.8 L (11.4-16.0) gm/dL Hct 33.5 L (34.0-46.0) % Sodium 134 L (137-145) mmol/L Calcium 7.8 L (8.4-10.2) mg/dL Total Protein 5.1 L (6.3-8.2) g/dL Albumin 2.7 L (3.5-5.0) g/dL - Imaging and Cardiology Chest x-ray: image reviewed Assessment and Plan Assessment: Paraesophageal hernia status post recent repair, intractable nausea and vomiting, status post takedown of paraesophageal hernia repair reduction of incarcerated hiatal hernia and re-repair of hiatal hernia with partial Erica wrap. History lupus with recent flareup DVT with PE 30 years ago GERD Restless leg syndrome Lifelong nonsmoker. Plan: Will advance diet to full liquids with protein shakes Patient to remain sitting completely upright for all oral intake as well as 2 hours afterward, discussed with the patient. Will be NPO after midnight Wednesday for UGI Increase activity, ambulate as tolerated. Encourage incentive spirometry use 10 times every hour while awake. Heplock IV GI/DVT prophylaxis. Continue home medications. More recommendations to follow based on patient's clinical course.
--- NOTE | 2022-12-05 12:13 | P.PN ---
Subjective Progress Note Date: 12/05/22 76-year-old female patient with a large paraesophageal hernia that was symptomatic. The patient was having difficulties with feeding and she was also having emesis and with indigestion. There was recommended that the hernia be surgically repaired and the patient was taken to the operating room and the patient underwent a takedown of paraesophageal hernia and reduction of an incarcerated hiatal hernia and repair of the hiatal hernia. Currently, the patient is postop day #1. She is currently being monitored in the intensive care unit. She is, comfortable and she is on oxygen at 2 L/m nasal cannula. Overnight, no significant events. The patient is currently on IV fluids with D5 half-normal saline at rate of 75 mL an hour. The postop chest x-ray from yesterday showed no acute abnormalities. NG tube was in a good location. She does have some background cardiomegaly. Repeat chest x-ray from today shows small bilateral pleural effusions. NG tube remains in a good location. There is also some atelectatic changes in the lung bases bilaterally. The patient is calm and comfortable. Hemodynamically stable. Cardiac rhythm is sinus. She is normotensive at this point in time. Hemoglobin is 11.2, white cycles of 12.3, sodium level is at 134 with a potassium level of 4.7 and a BUN of 15 with a creatinine of 0.6. Total protein is 5.2 with an albumin of 2.9. Note that the patient had an initial surgery with laparotomy and lysis of effusion and taken down of the paraesophageal hernia and resection of a hernial sac on 11/26/2022 and the patient was not doing well postop and she was having difficulties with keeping food down and for that reason, it evaluation was done. CAT scan of the abdomen and chest that was done on 12/02/2022 showed postsurgical changes from hiatal hernia repair a moderate-sized hiatal hernia was again demonstrated. No extravasation of contrast. The barium swallow that was done on 12/02/2022 showed that the esophagus was dilated and there was tapering of the distal esophagus with delayed passage of contrast from esophagus to the stomach related to partial obstruction. For all this reasons, the patient was taken back to the operating room. Her comorbid conditions including previous history of lupus, previous history of DVT and pulmonary embolism and restless leg syndrome. On today's evaluation of 12/05/2022, patient has no specific complaints. The patient is on room air oxygen. She is taking clear liquid diet. Repeat chest x-ray shows no acute abnormalities. The patient ventilating. The patient using the incentive spirometer. No other significant issues over the past 24 hours. Objective - Vital Signs Vital signs: Vital Signs Temp 98.0 F 12/05/22 08:17 Pulse 61 12/05/22 08:17 Resp 18 12/05/22 08:17 BP 95/58 12/05/22 08:17 Pulse Ox 97 12/05/22 08:45 FiO2 Intake & Output 12/04/22 12/05/22 12/05/22 18:59 06:59 18:59 Intake Total 750 240 660 Output Total 470 Balance 280 240 660 Intake: IV 750 D5-0.45% NaCl with KCl 750 20Meq/l 1,000 ml @ 75 mls /hr IV .[id number] [facility] Rx#: [id number] Oral 240 660 Output: Urine 470 Other: Voiding Method Indwelling Catheter Toilet Toilet # Voids 1 1 - Exam Gen. appearance the patient is calm and comfortable, not in acute distress and she is on 2 L of oxygen by nasal cannula. Patient has an NG tube in place. Head exam was generally normal. There was no scleral icterus or corneal arcus. Mucous membranes were moist. Neck was supple and without jugular venous distension, thyromegaly, or carotid bruits. Carotids were easily palpable bilaterally. There was no adenopathy. Lungs were clear to auscultation and percussion, and with normal diaphragmatic excursion. No wheezes or rales were noted. Cardiac exam revealed the PMI to be normally situated and sized. The rhythm was regular and no extrasystoles were noted during several minutes of auscultation. The first and second heart sounds were normal and physiologic splitting of the second heart sound was noted. There were no murmurs, rubs, clicks, or gallops. Abdomen is soft. There is a midline abdominal surgical scar which is dry clean and intact. Bowel sounds are hypoactive. No abdominal distention. No direct tenderness, no rebound tenderness, no guarding Examination of the extremities revealed easily palpable radial, femoral and pedal pulses. There was no cyanosis, clubbing or edema. Examination of the skin revealed no evidence of significant rashes, suspicious appearing nevi or other concerning lesions. Neurologically, the patient is awake and alert and the patient does not have any focal neurological deficit. Cranial nerves are essentially intact. - Labs CBC & Chem 7: 12/05/22 07:00 12/05/22 07:00 Labs: Abnormal Lab Results - Last 24 Hours (Table) 12/05/22 12/05/22 Range/Units 07:00 07:00 RBC 3.56 L (3.80-5.40) m/uL Hgb 10.8 L (11.4-16.0) gm/dL Hct 33.5 L (34.0-46.0) % Sodium 134 L (137-145) mmol/L Calcium 7.8 L (8.4-10.2) mg/dL Total Protein 5.1 L (6.3-8.2) g/dL Albumin 2.7 L (3.5-5.0) g/dL Assessment and Plan Plan: Repair of a recurrent paraesophageal hernia. Surgery was done for partial gastric obstruction. He should've surgery was done on 11/26/2022 and follow-up surgery was done on 12/03/2022. Currently the patient is stable in the intensive care unit. NG tube is in place. Bowel sounds are hypoactive. She is postop day #1 Small bilateral pleural effusions Dysphagia secondary to a large paraesophageal symptomatic hiatal hernia Remote history of DVT and pulmonary embolism, currently on no anticoagulants History of lupus maintain on Plaquenil patient basis History of restless leg syndrome Osteoporosis Plan NG tube was removed and the patient is advancing her diet gradually Provide the patient incentive spirometer Bowel sounds are hypoactive at this point in time. The patient will need to increase her mobility, and she is currently ambulating Patient will need a follow-up barium swallow to evaluate contrast passes from the esophagus down to the stomach IV fluids D5 half-normal saline at 75 mL an hour Pain control with IV Tylenol Heparin subcu for DVT prophylaxis May need an upper GI series by Wednesday Estefany Will see the patient when necessary. We'll sign off the case
--- NOTE | 2022-12-05 12:25 | XR ---
EXAM: XR chest 1V portable CLINICAL INDICATION:Female, 76 years old with history of Postoperative paraesophageal hernia repair; [facility] COMPARISON: 12/04/2022 and before TECHNIQUE: Chest single view. FINDINGS: NG tube has been removed. EKG leads and other extrinsic structures overlie the chest. Stable mild cardiomegaly and aortic tortuosity. Improved aeration of bibasilar pleural/parenchyma opa cities with mild residual blunting of the costophrenic angles right more than left. No visible pneumo thorax. Osseous structures appear grossly unchanged. IMPRESSION: 1. Interval removal of the NG tube. 2. Improved aeration of bibasilar pleural/parenchyma opacities with mild residual blunting of the co stophrenic angles.
--- NOTE | 2022-12-05 14:39 | P.PN ---
Subjective Progress Note Date: 12/05/22 Rebecca Thakkar, is a 76-year-old female who presented to [facility] emergency room with a chief complaint of nausea and vomiting. Patient was recently admitted to [facility] due to history of esophageal hernia and underwent a paraesophageal hernia repair on 11/26/2022. Patient was not doing well post surgery with inability to keep food down, she decided to come back to emergency room. She was evaluated in the emergency room vital examination on presentation revealed a temperature of 98.2 pulse 70 respiration 18 blood pressure 118/54 pulse ox 96% on room air Laboratory data revealed a white blood count of 6.0 hemoglobin 11.4 platelet count 323 sodium 139 potassium 4.4 chloride 102 CO2 25 BUN 18 creatinine 0.66 AST 31 ALT 16 Testing in the emergency room revealed Patient was admitted to medical floor for further evaluation and treatment On 12/04/2022 patient underwent repair of recurrent paraesophageal hernia with follow-up surgery completed on 12/03/[address] Hunt. Patient was transferred to the intensive care unit postoperative. Patient is stable at this time NG tube in place. Current vital signs temp 98.3, heart rate 60, blood pressure 103/53 with a pulse ox 96% on 2 L. At this time patient planning of abdominal discomfort. Patient denies chest pain or shortness breath. Patient denies nausea vomiting or diarrhea. Patient denies any urinary burning or frequency On 12/05/2022 patient was seen and examined on the medical floor she is alert and oriented 3 in no apparent distress there is no fever or chills no headache or dizziness no chest pain no shortness of breath no cough no nausea or vomiting no abdominal pain no diarrhea and no urinary symptoms. She is able to tolerate liquid diet and putting well without any vomiting at this time. Objective - Vital Signs Vital signs: Vital Signs Temp 98.0 F 12/05/22 08:17 Pulse 61 12/05/22 08:17 Resp 18 12/05/22 08:17 BP 95/58 12/05/22 08:17 Pulse Ox 97 12/05/22 08:45 FiO2 Intake & Output 12/04/22 12/05/22 12/05/22 18:59 06:59 18:59 Intake Total 750 240 Output Total 470 Balance 280 240 Intake: IV 750 D5-0.45% NaCl with KCl 750 20Meq/l 1,000 ml @ 75 mls /hr IV .[id number] [facility] Rx#: [id number] Oral 240 Output: Urine 470 Other: Voiding Method Indwelling Catheter Toilet Toilet # Voids 1 1 - Exam In general patient is alert and oriented x 3 in no distress HEENT head normocephalic and atraumatic Neck is supple no JVD no goiter no lymphadenopathy no carotid bruit Chest examination is clear to auscultation no crackles no wheezing Cardiac exam reveals regular heart sounds S1 and S2 no gallops no murmurs Abdomen is soft nontender no organomegaly with normal bowel sounds Extremity exam reveals no edema no cyanosis or clubbing Neurological examination reveals no gross focal deficits - Labs CBC & Chem 7: 12/05/22 07:00 12/05/22 07:00 Labs: Abnormal Lab Results - Last 24 Hours (Table) 12/05/22 12/05/22 Range/Units 07:00 07:00 RBC 3.56 L (3.80-5.40) m/uL Hgb 10.8 L (11.4-16.0) gm/dL Hct 33.5 L (34.0-46.0) % Sodium 134 L (137-145) mmol/L Calcium 7.8 L (8.4-10.2) mg/dL Total Protein 5.1 L (6.3-8.2) g/dL Albumin 2.7 L (3.5-5.0) g/dL Assessment and Plan Plan: Intractable nausea and vomiting History of esophageal hernia status post recent esophageal hernia repair on 11/26/2022. 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
[2022-12-05] MEDS: PRAMIPEXOLE 1 MG TAB PO SCH (20:00)
[2022-12-06] MEDS: FAMOTIDINE 20 MG TAB PO SCH ×2 (05:44→17:04)
[2022-12-06] MEDS: KETOROLAC 15 MG/ML 1 ML VIAL IVP SCH ×4 (05:44→23:20)
--- NOTE | 2022-12-06 07:55 | P.PN ---
Subjective Progress Note Date: 12/06/22 Principal diagnosis: Paraesophageal hernia status post recent repair, intractable nausea and vomiting. Previous medical history lupus with recent flareup, DVT with PE 30 years ago, GERD, restless leg syndrome, lifelong nonsmoker. POD #3 Takedown of paraesophageal hernia repair reduction of incarcerated hiatal hernia and re-repair of hiatal hernia with partial Erica wrap. The patient was seen and examined this morning laying in bed in her room on the cardiac stepdown unit in no acute distress. States pain is controlled on current medication regimen, denies shortness of breath. Denies abdominal pain or nausea, positive flatus. She was able to tolerate full liquids yesterday. Abdominal binder remains in place. No other concerns. Objective - Vital Signs Vital signs: Vital Signs Temp 98 F 12/06/22 04:00 Pulse 74 12/06/22 04:00 Resp 16 12/06/22 04:00 BP 112/59 12/06/22 04:00 Pulse Ox 97 12/06/22 04:00 FiO2 Intake & Output 12/05/22 12/06/22 12/06/22 18:59 06:59 18:59 Intake Total 1380 Output Total 300 Balance 1380 -300 Intake: Oral 1380 Output: Urine 300 Other: Voiding Method Toilet Toilet # Voids 2 1 - Exam CONSTITUTIONAL: Appears comfortable, cooperative, no acute distress RESPIRATORY: Lungs sounds diminished bilaterally. Respirations even, nonlabored. Currently on room air with oxygen saturation 97%. Able to achieve 1000 mL on incentive spirometry. Strong cough. CARDIOVASCULAR: S1, S2 present. Regular rate and rhythm, sinus rhythm on telemetry. Palpable peripheral pulses bilaterally. No edema present. No calf pain or tenderness noted GASTROINTESTINAL: Abdomen soft, nontender, nondistended. Active bowel sounds present 4 quadrants. Tolerating full liquid diet. Positive flatus. Abdominal binder in place GENITOURINARY: Continues to void INTEGUMENTARY: Skin is warm and dry. Incision well approximated, charisse intact NEUROLOGIC: Cranial nerves II through XII intact MUSKULOSKELETAL: Able to move all extremities, strength equal bilaterally, gait normal PSYCHIATRIC: Alert and oriented to person place and time, appropriate affect, intact judgment and insight - Allied health notes Allied health notes reviewed: nursing - Labs CBC & Chem 7: 12/05/22 07:00 12/05/22 07:00 Labs: Abnormal Lab Results - Last 24 Hours (Table) 12/05/22 Range/Units 07:00 Sodium 134 L (137-145) mmol/L Calcium 7.8 L (8.4-10.2) mg/dL Total Protein 5.1 L (6.3-8.2) g/dL Albumin 2.7 L (3.5-5.0) g/dL - Imaging and Cardiology Chest x-ray: image reviewed Assessment and Plan Assessment: Paraesophageal hernia status post recent repair, intractable nausea and vomiting, status post takedown of paraesophageal hernia repair reduction of incarcerated hiatal hernia and re-repair of hiatal hernia with partial Erica wrap. History lupus with recent flareup DVT with PE 30 years ago GERD Restless leg syndrome Lifelong nonsmoker. Plan: Continue full liquids with protein shakes Patient to remain sitting completely upright for all oral intake as well as 2 hours afterward, discussed with the patient. Will be NPO after midnight for UGI Increase activity, ambulate as tolerated. Encourage incentive spirometry use 10 times every hour while awake. Shower daily GI/DVT prophylaxis. Continue home medications. More recommendations to follow based on patient's clinical course.
[2022-12-06] MEDS: CALCIUM CARB-VIT D 500 MG-5 MCG TAB PO SCH (07:57)
[2022-12-06] MEDS: HYDROXYCHLOROQUINE SULFATE 200 MG TAB PO SCH (07:57)
[2022-12-06] MEDS: HEPARIN SODIUM,PORCINE 5,000 UNIT/ML 1 ML VIAL SQ SCH ×3 (07:57→23:20)
--- NOTE | 2022-12-06 09:56 | XR ---
EXAM: XR chest 1V portable CLINICAL INDICATION:Female, 76 years old with history of post PE hernia repair; [facility] COMPARISON: 12/05/2022 and before TECHNIQUE: Chest single view. FINDINGS: EKG leads overlie the chest. No indwelling lines are seen. Stable mild cardiomegaly and aortic tortuosity. Slightly worsening bilateral basilar pleural/parenchy mal opacities with blunting of the costophrenic angles. No visible pneumothorax. Osseous structures appear grossly unchanged. Surgical skin charisse noted over the upper abdomen. IMPRESSION: Slightly worsening bibasilar pleural/parenchymal opacities, likely small to moderate pleural effusion s with adjacent atelectasis/airspace disease. Correlate for CHF.
[2022-12-06 10:51] LABS: Basophils % (A) 0 %; Eosinophils # (A) 0.3 k/uL (0-0.7); Eosinophils % (A) 5 %; HCT 33.3 % (34.0-46.0); HGB 10.7 gm/dL (11.4-16.0); Lymphocytes # (A) 1.3 k/uL (1.0-4.8); Lymphocytes % (A) 23 %; MCH 30.2 pg (25.0-35.0); MCHC 32.3 g/dL (31.0-37.0); MCV 93.7 fL (80.0-100.0); Mean Platelet Volume 7.8; Monocytes # (A) 0.2 k/uL (0-1.0); Monocytes % (A) 4 %; Neutrophils # (A) 3.6 k/uL (1.3-7.7); Neutrophils % (A) 66 %; Platelet Count 327 k/uL (150-450); RBC 3.55 m/uL (3.80-5.40); RDW 13.1 % (11.5-15.5); WBC 5.5 k/uL (3.8-10.6)
[2022-12-06 11:00] LABS: ALT 16 U/L (4-34); AST 38 U/L (14-36); African American GFR (CKD) >90 (>60 ml/min/1.73 sqM); Albumin 2.9 g/dL (3.5-5.0); Alkaline Phosphatase 64 U/L (38-126); Anion Gap 4 mmol/L; Blood Urea Nitrogen 9 mg/dL (7-17); Calcium 8.3 mg/dL (8.4-10.2); Carbon Dioxide 26 mmol/L (22-30); Chloride 107 mmol/L (98-107); Glucose 97 mg/dL (74-99); Non-African American GFR(CKD) >90 (>60 ml/min/1.73 sqM); Potassium 4.6 mmol/L (3.5-5.1); Sodium 137 mmol/L (137-145); Total Bilirubin 0.5 mg/dL (0.2-1.3); Total Protein 5.4 g/dL (6.3-8.2)
--- NOTE | 2022-12-06 13:55 | P.PN ---
Subjective Progress Note Date: 12/06/22 Rebecca Thakkar, is a 76-year-old female who presented to [facility] emergency room with a chief complaint of nausea and vomiting. Patient was recently admitted to [facility] due to history of esophageal hernia and underwent a paraesophageal hernia repair on 11/26/2022. Patient was not doing well post surgery with inability to keep food down, she decided to come back to emergency room. She was evaluated in the emergency room vital examination on presentation revealed a temperature of 98.2 pulse 70 respiration 18 blood pressure 118/54 pulse ox 96% on room air Laboratory data revealed a white blood count of 6.0 hemoglobin 11.4 platelet count 323 sodium 139 potassium 4.4 chloride 102 CO2 25 BUN 18 creatinine 0.66 AST 31 ALT 16 Testing in the emergency room revealed Patient was admitted to medical floor for further evaluation and treatment On 12/04/2022 patient underwent repair of recurrent paraesophageal hernia with follow-up surgery completed on 12/03/[address] Hunt. Patient was transferred to the intensive care unit postoperative. Patient is stable at this time NG tube in place. Current vital signs temp 98.3, heart rate 60, blood pressure 103/53 with a pulse ox 96% on 2 L. At this time patient planning of abdominal discomfort. Patient denies chest pain or shortness breath. Patient denies nausea vomiting or diarrhea. Patient denies any urinary burning or frequency On 12/05/2022 patient was seen and examined on the medical floor she is alert and oriented 3 in no apparent distress there is no fever or chills no headache or dizziness no chest pain no shortness of breath no cough no nausea or vomiting no abdominal pain no diarrhea and no urinary symptoms. She is able to tolerate liquid diet and putting well without any vomiting at this time. On 12/06/2022 patient was seen and examined on the medical floor she is alert and oriented,in no distress there is no fever or chills no headache or dizziness no chest pain no shortness of breath no cough no nausea or vomiting no abdominal pain no diarrhea and no urinary symptoms. She is able to tolerate liquid diet and putting well without any vomiting at this time. We are awaiting for barium swallow tomorrow and further recommendation from surgery. Objective - Vital Signs Vital signs: Vital Signs Temp 99.0 F 12/06/22 08:09 Pulse 63 12/06/22 08:09 Resp 16 12/06/22 08:09 BP 113/65 12/06/22 08:09 Pulse Ox 98 12/06/22 08:09 FiO2 Intake & Output 12/05/22 12/06/22 12/06/22 18:59 06:59 18:59 Intake Total 1380 Output Total 300 Balance 1380 -300 Intake: Oral 1380 Output: Urine 300 Other: Voiding Method Toilet Toilet Toilet # Voids 2 1 - Exam In general patient is alert and oriented x 3 in no distress HEENT head normocephalic and atraumatic Neck is supple no JVD no goiter no lymphadenopathy no carotid bruit Chest examination is clear to auscultation no crackles no wheezing Cardiac exam reveals regular heart sounds S1 and S2 no gallops no murmurs Abdomen is soft nontender no organomegaly with normal bowel sounds Extremity exam reveals no edema no cyanosis or clubbing Neurological examination reveals no gross focal deficits - Labs CBC & Chem 7: 12/06/22 10:37 12/06/22 10:37 Assessment and Plan Plan: Intractable nausea and vomiting History of esophageal hernia status post recent esophageal hernia repair on 11/26/2022. 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
[2022-12-06] MEDS: PRAMIPEXOLE 1 MG TAB PO SCH (19:59)
[2022-12-07] MEDS: KETOROLAC 15 MG/ML 1 ML VIAL IVP SCH ×2 (04:54→13:14)
[2022-12-07] MEDS: FAMOTIDINE 20 MG TAB PO SCH (04:54)
[2022-12-07 05:02] VITALS: RESP 18
[2022-12-07] MEDS ORDERED: ACETAMINOPHEN TAB 325 MG TAB PO PRN (06:48)
--- NOTE | 2022-12-07 08:01 | P.PN ---
Subjective Progress Note Date: 12/07/22 Principal diagnosis: Paraesophageal hernia status post recent repair, intractable nausea and vomiting. Previous medical history lupus with recent flareup, DVT with PE 30 years ago, GERD, restless leg syndrome, lifelong nonsmoker. POD #4 Takedown of paraesophageal hernia repair reduction of incarcerated hiatal hernia and re-repair of hiatal hernia with partial Erica wrap. The patient was seen and examined this morning laying in bed in her room on the cardiac stepdown unit in no acute distress. States pain is controlled on current medication regimen, denies shortness of breath. Denies abdominal pain or nausea, positive bowel movement 2 yesterday per patient. She was able to tolerate full liquids yesterday, currently NPO for upper GI. Abdominal binder remains in place. No other concerns. Objective - Vital Signs Vital signs: Vital Signs Temp 98 F 12/07/22 04:00 Pulse 62 12/07/22 04:00 Resp 18 12/07/22 04:00 BP 104/51 12/07/22 04:00 Pulse Ox 92 L 12/07/22 04:00 FiO2 Intake & Output 12/06/22 12/07/22 12/07/22 18:59 06:59 18:59 Intake Total 1580 240 Output Total 950 400 Balance 630 -160 Intake: Oral 1580 240 Output: Urine 950 400 Other: Voiding Method Toilet Toilet - Exam CONSTITUTIONAL: Appears comfortable, cooperative, no acute distress RESPIRATORY: Lungs sounds diminished bilaterally. Respirations even, nonlabored. Currently on room air with oxygen saturation 97%. Able to achieve 1500 mL on incentive spirometry. Strong cough. CARDIOVASCULAR: S1, S2 present. Regular rate and rhythm, sinus rhythm on telemetry. Palpable peripheral pulses bilaterally. No edema present. No calf pain or tenderness noted GASTROINTESTINAL: Abdomen soft, nontender, nondistended. Active bowel sounds present 4 quadrants. Tolerating full liquid diet, currently NPO. Positive bowel movement 2 yesterday per patient. Abdominal binder in place GENITOURINARY: Continues to void INTEGUMENTARY: Skin is warm and dry. Incision well approximated, charisse intact NEUROLOGIC: Cranial nerves II through XII intact MUSKULOSKELETAL: Able to move all extremities, strength equal bilaterally, gait normal PSYCHIATRIC: Alert and oriented to person place and time, appropriate affect, intact judgment and insight - Allied health notes Allied health notes reviewed: nursing - Labs CBC & Chem 7: 12/06/22 10:37 10 10:37 Labs: Abnormal Lab Results - Last 24 Hours (Table) 12/06/22 12/06/22 Range/Units 10:37 10:37 RBC 3.55 L (3.80-5.40) m/uL Hgb 10.7 L (11.4-16.0) gm/dL Hct 33.3 L (34.0-46.0) % Calcium 8.3 L (8.4-10.2) mg/dL AST 38 H (14-36) U/L Total Protein 5.4 L (6.3-8.2) g/dL Albumin 2.9 L (3.5-5.0) g/dL Assessment and Plan Assessment: Paraesophageal hernia status post recent repair, intractable nausea and vomiting, status post takedown of paraesophageal hernia repair reduction of incarcerated hiatal hernia and re-repair of hiatal hernia with partial Erica wrap. History lupus with recent flareup DVT with PE 30 years ago GERD Restless leg syndrome Lifelong nonsmoker. Plan: Continue full liquids with protein shakes, currently NPO for UGI Patient to remain sitting completely upright for all oral intake as well as 2 hours afterward, discussed with the patient. Increase activity, ambulate as tolerated. Encourage incentive spirometry use 10 times every hour while awake. Shower daily GI/DVT prophylaxis. Continue home medications. More recommendations to follow based on patient's clinical course.
--- NOTE | 2022-12-07 08:39 | FL ---
EXAMINATION TYPE: FL UGI w esophagus DATE OF EXAM: 12/07/2022 8:25 AM CLINICAL INDICATION:Female, 76 years old with history of post paraesophageal hernia repair; COMPARISON: 12/02/2022 TECHNIQUE: The procedure was explained and patient history elicited. All patient questions were ans wered prior to start of procedure. A promotions coordinator radiograph of the abdomen was also reviewed. Multiple flu oroscopic spot images of the esophagus, stomach and duodenum were obtained following ingestion of liq uid barium and EZ-gas crystals. Fluoroscopic time: 17 seconds Fluoroscopic images:0 Radiographs taken: 36 DAP: [id number] [id number] FINDINGS: Upper GI examination: The promotions coordinator abdominal radiograph demonstrates a normal bowel gas pattern without dilated loops of small or large bowel. There is no evidence for organomegaly or pneumoperitoneum. No abnormal calcificat ions. The visualized osseous structures are intact. Limit evaluation of the gastroesophageal junction demonstrates postsurgical change with skin charisse in place. No evidence for extravasation. There is mild delay in contrast extending from the distal es ophagus into the gastric lumen. All contrast eventually flowed into the gastric lumen. No evidence fo r hernia. IMPRESSION: No evidence for extravasation.
[2022-12-07] MEDS ORDERED: SENNOSIDES-DOCUSATE SODIUM 1 EACH TAB PO SCH (09:00)
[2022-12-07] MEDS: HEPARIN SODIUM,PORCINE 5,000 UNIT/ML 1 ML VIAL SQ SCH (09:00)
[2022-12-07] MEDS: HYDROXYCHLOROQUINE SULFATE 200 MG TAB PO SCH (09:00)
[2022-12-07] MEDS: CALCIUM CARB-VIT D 500 MG-5 MCG TAB PO SCH (09:01)
[2022-12-07 09:04] VITALS: TEMP 97.7
[2022-12-07 12:44] LABS: Basophils % (A) 0 %; Eosinophils # (A) 0.3 k/uL (0-0.7); Eosinophils % (A) 5 %; HCT 37.1 % (34.0-46.0); HGB 11.7 gm/dL (11.4-16.0); Hypochromasia Slight; Lymphocytes # (A) 1.3 k/uL (1.0-4.8); Lymphocytes % (A) 23 %; MCHC 31.5 g/dL (31.0-37.0); MCV 95.2 fL (80.0-100.0); Mean Platelet Volume 8.9; Monocytes # (A) 0.3 k/uL (0-1.0); Monocytes % (A) 5 %; Neutrophils # (A) 3.7 k/uL (1.3-7.7); Neutrophils % (A) 66 %; Platelet Count 366 k/uL (150-450); RDW 13.2 % (11.5-15.5); WBC 5.6 k/uL (3.8-10.6)
[2022-12-07 13:01] LABS: ALT 25 U/L (4-34); AST 71 U/L (14-36); African American GFR (CKD) >90 (>60 ml/min/1.73 sqM); Albumin 3.7 g/dL (3.5-5.0); Alkaline Phosphatase 77 U/L (38-126); Anion Gap 8 mmol/L; Blood Urea Nitrogen 8 mg/dL (7-17); Calcium 9.2 mg/dL (8.4-10.2); Carbon Dioxide 25 mmol/L (22-30); Chloride 106 mmol/L (98-107); Glucose 79 mg/dL (74-99); Non-African American GFR(CKD) 87 (>60 ml/min/1.73 sqM); Potassium 4.4 mmol/L (3.5-5.1); Sodium 139 mmol/L (137-145); Total Bilirubin 0.6 mg/dL (0.2-1.3); Total Protein 6.6 g/dL (6.3-8.2)
[2022-12-07 14:12] VITALS: BP 110/64; PULSE 58
--- NOTE | 2022-12-07 15:08 | P.DS ---
Providers Date of admission: 12/02/22 18:31 Expected date of discharge: 12/07/22 Attending physician: Audrey Hinkle Consults: 12/02/22 18:27 Consult Physician Urgent Consulting Provider: Roscoe Hunt Consult Reason/Comments: Postoperative complications Do you want consulting provider notified?: Yes 12/03/22 18:00 Consult Physician Routine Consulting Provider: Donte Ingram Consult Reason/Comments: Status post paraesophageal hernia repair Do you want consulting provider notified?: Yes Primary care physician: Mera Villar [facility] Course: Diagnosis on discharge: Intractable nausea and vomiting History of esophageal hernia status post recent esophageal hernia repair on 11/26/2022. 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 Patient was recently admitted to [facility] due to history of esophageal hernia and underwent a paraesophageal hernia repair on 11/26/2022. Patient was not doing well post surgery with inability to keep food down, she decided to come back to emergency room. She was evaluated in the emergency room vital examination on presentation revealed a temperature of 98.2 pulse 70 respiration 18 blood pressure 118/54 pulse ox 96% on room air Laboratory data revealed a white blood count of 6.0 hemoglobin 11.4 platelet count 323 sodium 139 potassium 4.4 chloride 102 CO2 25 BUN 18 creatinine 0.66 AST 31 ALT 16 Testing in the emergency room revealed Patient was admitted to medical floor for further evaluation and treatment On 12/04/2022 patient underwent repair of recurrent paraesophageal hernia with follow-up surgery completed on 12/03/[address] Hunt. Patient was transferred to the intensive care unit postoperative. Patient is stable at this time NG tube in place. Current vital signs temp 98.3, heart rate 60, blood pressure 103/53 with a pulse ox 96% on 2 L. At this time patient planning of abdominal discomfort. Patient denies chest pain or shortness breath. Patient denies nausea vomiting or diarrhea. Patient denies any urinary burning or frequency On 12/05/2022 patient was seen and examined on the medical floor she is alert and oriented 3 in no apparent distress there is no fever or chills no headache or dizziness no chest pain no shortness of breath no cough no nausea or vomiting no abdominal pain no diarrhea and no urinary symptoms. She is able to tolerate liquid diet and putting well without any vomiting at this time. On 12/06/2022 patient was seen and examined on the medical floor she is alert and oriented, in no distress there is no fever or chills no headache or dizziness no chest pain no shortness of breath no cough no nausea or vomiting no abdominal pain no diarrhea and no urinary symptoms. She is able to tolerate liquid diet and putting well without any vomiting at this time. We are awaiting for barium swallow tomorrow and further recommendation from surgery. On 12/07/2022 patient was seen and examined on the medical floor she is alert and oriented 3 in no apparent distress, there is no fever or chills no headache or dizziness no chest pain no shortness of breath no cough she is able to swallo w her food well without any difficulty there is no nausea or vomiting no abdominal pain no diarrhea no blood in the stools, there is no urinary symptoms. Patient was evaluated by [facility] surgery and was cleared for discharge. She will be discharged to home today she will follow-up with her primary care physician Dr. Villar within one week. Patient Condition at Discharge: Stable Plan - Discharge Summary New Discharge Prescriptions: New Acetaminophen Tab [Tylenol] 650 mg PO Q4HR PRN tab PRN Reason: Fever And/ Or Pain Continue Hydroxychloroquine Sulfate 200 mg PO DAILY Calcium Carbonate/Vitamin D3 [Calcium 600 mg-D3 10 Mcg (400 Iu)] 1 tab PO DAILY Famotidine [Pepcid] 20 mg PO BID-W/MEALS Pramipexole [Mirapex] 1 mg PO HS Albuterol Inhaler [Ventolin Hfa Inhaler] 2 puff INHALATION RT-QID PRN PRN Reason: Shortness Of Breath Discharge Medication List Hydroxychloroquine Sulfate 200 mg PO DAILY 04/27/22 [History] Calcium Carbonate/Vitamin D3 [Calcium 600 mg-D3 10 Mcg (400 Iu)] 1 tab PO DAILY 07/24/22 [History] Famotidine [Pepcid] 20 mg PO BID-W/MEALS 07/24/22 [History] Albuterol Inhaler [Ventolin Hfa Inhaler] 2 puff INHALATION RT-QID PRN 12/02/22 [History] Pramipexole [Mirapex] 1 mg PO HS 12/02/22 [History] Acetaminophen Tab [Tylenol] 650 mg PO Q4HR PRN tab 12/07/22 [Rx] Follow up Appointment(s)/Referral(s): Mera Villar MD [Primary Care Provider] - 1-2 days Roscoe Hunt MD [STAFF PHYSICIAN] - 12/17/22 10:00 am Activity/Diet/Wound Care/Special Instructions: DISCHARGE INSTRUCTIONS: 1. No driving for 2 weeks, or until physician gives their ok. 2. No lifting, pushing, or pulling more than 10 pounds for 2 weeks. 3. Continue pain control per as needed orders with acetaminophen (Tylenol) 4. Continue with incentive spirometry and splinting until otherwise directed by the physician. 5. Remove all dressings and shower daily. Replace dressing over charisse before re-applying abdominal binder 6. Routine incision care. No powders, lotions, ointments on incisions. 7. Please call surgeon/CLERICAL ASSIGNER for temp greater than 101 F or purulent drainage from incisions. 8. You need to be sitting upright for all oral intake as well as for at least 2 hours after 9. Mechanical soft diet, chew food carefully 10. No straining for bowel movements, may use [id number] stool softners if needed Discharge Disposition: HOME SELF-CARE
== END 2022-12-07 16:16 | disposition home or self-care (01) | DRG 328 ==
LOC: EC 15:33 → 4SSUR 18:31 → 2SICU 12-03 17:54 → 3SCARD 12-04 19:03
PROVIDERS: ADMIT Internal Medicine; ATTEND Internal Medicine
PROC: 0BUT0JZ Supplement Diaphragm with Synthetic Substitute, Open Approach (ICD-10-PCS; principal; 2022-12-03 07:30)
DX: K44.0 Diaphragmatic hernia with obstruction, without gangrene (principal); G25.81 Restless legs syndrome; K21.9 Gastro-esophageal reflux disease without esophagitis; K45.8 Other specified abdominal hernia without obstruction or gangrene; M32.9 Systemic lupus erythematosus, unspecified; M81.0 Age-related osteoporosis without current pathological fracture; Z79.899 Other long term (current) drug therapy; Z86.711 Personal history of pulmonary embolism; Z86.718 Personal history of other venous thrombosis and embolism; Z90.710 Acquired absence of both cervix and uterus; Z88.2 Allergy status to sulfonamides; Z88.8 Allergy status to other drugs, medicaments and biological substances; Z88.1 Allergy status to other antibiotic agents
CPT/HCPCS: 36415; 71045; 71250; 74150; 74220; 74240; 80053; 85025; 86850; 86900; 86901; 88302; 94760; 96360; 99285

== ENCOUNTER 2022-12-24 14:22 | Emergency (ER) | payer MEDICARE ==
[2022-12-24 14:51] LABS: Basophils % (A) 0 %; Eosinophils # (A) 0.2 k/uL (0-0.7); Eosinophils % (A) 3 %; HCT 34.5 % (34.0-46.0); HGB 11.4 gm/dL (11.4-16.0); Lymphocytes # (A) 1.6 k/uL (1.0-4.8); Lymphocytes % (A) 23 %; MCH 30.3 pg (25.0-35.0); MCHC 33.1 g/dL (31.0-37.0); MCV 91.5 fL (80.0-100.0); Mean Platelet Volume 8.9; Monocytes # (A) 0.5 k/uL (0-1.0); Monocytes % (A) 7 %; Neutrophils # (A) 4.6 k/uL (1.3-7.7); Neutrophils % (A) 66 %; Platelet Count 260 k/uL (150-450); RBC 3.77 m/uL (3.80-5.40); RDW 13.2 % (11.5-15.5); WBC 6.9 k/uL (3.8-10.6)
[2022-12-24 15:22] LABS: ALT 12 U/L (4-34); AST 26 U/L (14-36); African American GFR (CKD) >90 (>60 ml/min/1.73 sqM); Albumin 3.8 g/dL (3.5-5.0); Alkaline Phosphatase 68 U/L (38-126); Anion Gap 9 mmol/L; Blood Urea Nitrogen 14 mg/dL (7-17); Calcium 9.1 mg/dL (8.4-10.2); Carbon Dioxide 26 mmol/L (22-30); Chloride 101 mmol/L (98-107); Glucose 95 mg/dL (74-99); Non-African American GFR(CKD) 89 (>60 ml/min/1.73 sqM); Potassium 4.1 mmol/L (3.5-5.1); Sodium 136 mmol/L (137-145); Total Bilirubin 0.6 mg/dL (0.2-1.3); Total Protein 6.4 g/dL (6.3-8.2)
[2022-12-24 15:48] LABS: Appearance,Urine Clear (Clear); Bilirubin,Urine Negative (Negative); Blood,Urine Negative (Negative); Color,Urine Yellow; Glucose,Urine (UA) Negative (Negative); Ketones,Urine Negative (Negative); Leukocyte Esterase,Urine Small (Negative); Nitrite,Urine Negative (Negative); Protein,Urine Trace (Negative); Specific Gravity,Urine >1.030 (1.001-1.035); Urobilinogen,Urine <2.0 mg/dL (<2.0)
[2022-12-24 15:50] LABS: Mucus,Urine Many /hpf; RBC,Urine <1 /hpf (0-5); Squamous Epithelial Cell,Urine <1 /hpf (0-4); WBC,Urine 1 /hpf (0-5)
--- NOTE | 2022-12-24 16:05 | ED ---
Nausea/Vomiting/Diarrhea HPI - General Source: patient, family, RN notes reviewed Mode of arrival: ambulatory Limitations: no limitations - History of Present Illness MD complaint: nausea, vomiting <Merced Cool - Last Filed: 12/24/22 16:03> <Adriana Anderson - Last Filed: 12/24/22 22:30> - General Chief complaint: Nausea/Vomiting/Diarrhea Stated complaint: vomiting Time Seen by Provider: 12/24/22 16:03 - History of Present Illness Initial comments: This is a 77-year-old female who presents to the emergency department for nausea and vomiting. Symptoms started 2 days ago. Denies any pain or blood in the vomit. States that she had an initial paraesophageal hernia repair on 11/26, which then failed, and this was revised on 12/03. (Merced Cool) 77-year-old female with past history of hiatal hernia with fundoplication 2 who presents to the emergency department reporting vomiting. States that on December 14 she had 2 episodes of coffee-ground emesis. Yesterday the patient had one episode of vomiting undigested food. She is concerned as she does have a history of fundoplication 2. Procedure was revised on December 03 as she herniated up through the diaphragm after her first procedure. Procedure was performed by Dr. Hunt. He does call the emergency department to notify us that patient will be coming in. She denies any diarrhea. No fevers. She has not been taking any medications for her symptoms. No other alleviating, prec ipitating or modifying factors (Adriana Anderson) - Related Data Home Medications Medication Instructions Recorded Confirmed Hydroxychloroquine Sulfate 200 mg PO DAILY 04/27/22 12/02/22 Calcium Carbonate/Vitamin D3 1 tab PO DAILY 07/24/22 12/02/22 [Calcium 600 mg-D3 10 Mcg (400 Iu)] Famotidine [Pepcid] 20 mg PO BID-W/MEALS 07/24/22 12/02/22 Albuterol Inhaler [Ventolin Hfa 2 puff INHALATION RT-QID PRN 12/02/22 12/02/22 Inhaler] Pramipexole [Mirapex] 1 mg PO HS 12/02/22 12/02/22 Previous Rx's Medication Instructions Recorded Acetaminophen Tab [Tylenol] 650 mg PO Q4HR PRN tab 12/07/22 Allergies Allergy/AdvReac Type Severity Reaction Status Date / Time estrogens, conjugated Allergy Severe CLOT IN Verified 12/03/22 12:29 [From Premarin] LEGS gabapentin [From Neurontin] Allergy Severe CONSTANT Verified 12/03/22 12:29 MOVEMENT OF WHOLE BODY ciprofloxacin [From Cipro] Allergy muscle and Verified 12/03/22 12:29 bone weakness ciprofloxacin HCl Allergy muscle and Verified 12/03/22 12:29 [From Cipro] bone weakness levofloxacin [From Levaquin] Allergy Rash/Hives Verified 12/03/22 12:29 quinine Allergy WEAKNESS Verified 12/03/22 12:29 IN THE LEGS Sulfa (Sulfonamide Allergy SEVERE Verified 12/03/22 12:29 Antibiotics) WEAKNESS OF LEGS, Hives sulfamethoxazole Allergy SEVERE Verified 12/03/22 12:29 [From Bactrim] WEAKNESS OF LEGS, Hives trimethoprim [From Bactrim] Allergy SEVERE Verified 12/03/22 12:29 WEAKNESS OF LEGS, Hives Review of Systems ROS Other: All systems not noted in ROS Statement are negative. <Merced Cool - Last Filed: 12/24/22 16:03> ROS Other: All systems not noted in ROS Statement are negative. <Adriana Anderson - Last Filed: 12/24/22 22:30> ROS Statement: Those systems with pertinent positive or pertinent negative responses have been documented in the HPI. Past Medical History Past Medical History: Pulmonary Embolus (PE), Skin Disorder Additional Past Medical History / Comment(s): varicose veins, RESTLESS LEG SYNDROME KRISTY. takes mirapex at night,OSTEOPOROSIS ,LUPUS, para esophageal hernia was subsequent repair History of Any Multi-Drug Resistant Organisms: None Reported Past Surgical History: Hernia Repair, Hysterectomy, Orthopedic Surgery Additional Past Surgical History / Comment(s): left carpel tunnnel. esphogeal repair Past Anesthesia/Blood Transfusion Reactions: Postoperative Nausea & Vomiting (PONV) Past Psychological History: No Psychological Hx Reported Smoking Status: Never smoker Past Alcohol Use History: None Reported Past Drug Use History: None Reported - Past Family History Sister(s) Family Medical History: Cancer Daughter(s) Family Medical History: Cancer Father Family Medical History: Cancer Mother Family Medical History: Cancer <Merced Cool - Last Filed: 12/24/22 16:03> General Exam Limitations: no limitations <Merced Cool - Last Filed: 12/24/22 16:03> General appearance: alert, in no apparent distress Head exam: Present: atraumatic, normocephalic, normal inspection Eye exam: Present: normal appearance, PERRL, EOMI. Absent: scleral icterus, conjunctival injection, periorbital swelling ENT exam: Present: normal exam, mucous membranes moist Neck exam: Present: normal inspection. Absent: tenderness, meningismus, lymphadenopathy Respiratory exam: Present: normal lung sounds bilaterally. Absent: respiratory distress, wheezes, rales, rhonchi, stridor Cardiovascular Exam: Present: regular rate, normal rhythm, normal heart sounds. Absent: systolic murmur, diastolic murmur, rubs, gallop, clicks GI/Abdominal exam: Present: soft, normal bowel sounds. Absent: distended, tenderness, guarding, rebound, rigid Extremities exam: Present: normal inspection, full ROM, normal capillary refill. Absent: tenderness, pedal edema, joint swelling, calf tenderness Back exam: Present: normal inspection Neurological exam: Present: alert, oriented X3, CN II-XII intact Psychiatric exam: Present: normal affect, normal mood Skin exam: Present: warm, dry, intact, normal color. Absent: rash <JustinAdriana Cora - Last Filed: 12/24/22 22:30> - General Exam Comments Initial Comments: Visual Physical Exam Vital signs reviewed General: Well-appearing, nontoxic, no acute distress. Head: Normocephalic, atraumatic Eyes: PERRLA, EOMI ENT: Airway patent Chest: Nonlabored breathing Skin: No visual rash, normal skin tone Neuro: Alert and oriented 3 Musculoskeletal: No gross abnormalities I performed the QuickNote portion of this chart. Signed Merced Cool PA-C. (Merced Cool) Course Vital Signs 12/24/22 12/24/22 14:27 18:34 Temperature 97.9 F 98.0 F Pulse Rate 73 80 Respiratory 16 18 Rate Blood Pressure 126/54 124/60 O2 Sat by Pulse 98 99 Oximetry Medical Decision Making - Lab Data Result diagrams: 12/24/22 14:33 12/24/22 14:33 <Merced Cool - Last Filed: 12/24/22 16:03> - Lab Data Result diagrams: 12/24/22 14:33 12/24/22 14:33 <JustinAdriana Cora - Last Filed: 12/24/22 22:30> - Medical Decision Making Was pt. sent in by a medical professional or institution (, [facility], SENIOR CATEGORY MANAGER, urgent care, hospital, or senior living...) When possible be specific @ -Dr. Hunt Did you speak to anyone other than the patient for history (EMS, parent, family, police, friend...)? What history was obtained from this source @ -Dr. Hunt Did you review nursing and triage notes (agree or disagree)? Why? @ -I reviewed and agree with nursing and triage notes Were old charts reviewed (outside hosp., previous admission, EMS record, old EKG, old radiological studies, urgent care reports/EKG's, senior living records)? Report findings @ -I reviewed patient's surgical procedure and CT from December 02 Differential Diagnosis (chest pain, altered mental status, abdominal pain women, abdominal pain men, vaginal bleeding, weakness, fever, dyspnea, syncope, headache, dizziness, GI bleed, back pain, seizure, CVA, palpatations, mental health, musculoskeletal)? @ -Differential Abdominal Pain Women: Appendicitis, Cholecystitis, diverticulosis, ischemic bowel, pancreatitis, hepatitis, UTI, gastroenteritis, AAA, incarcerated hernia, bowel obstruction, constipation, inflammatory bowel, hepatitis, peptic ulcer disease, splenic infarction, perforated viscus, vulvitis, ovarian torsion, PID, kidney stone, placenta abruption, this is not meant to be an all-inclusive list EKG interpreted by me (3pts min.). @ -Not done X-rays interpreted by me (1pt min.). @ -None done CT interpreted by me (1pt min.). @ -Yes and demonstrates hiatal hernia U/S interpreted by me (1pt. min.). @ -None done What testing was considered but not performed or refused? (CT, X-rays, U/S, labs)? Why? @ -None What meds were considered but not given or refused? Why? @ -None Did you discuss the management of the patient with other professionals (professionals i.e. , E[facility], SENIOR CATEGORY MANAGER, lab, RT, psych nurse, social economist, frame cleaner, teacher, chief knowledge officer, watch caser)? Give summary @ -dr hunt Was smoking cessation discussed for >3mins.? @ -No Was critical care preformed (if so, how long)? @ -No Were there social determinants of health that impacted care today? How? (Homelessness, low income, unemployed, alcoholism, drug addiction, transportation, low edu. Level, literacy, decrease access to med. care, usp, rehab)? @ -No Was there de-escalation of care discussed even if they declined (Discuss DNR or withdrawal of care, Hospice)? DNR status @ -No What co-morbidities impacted this encounter? (DM, HTN, Smoking, COPD, CAD, Cancer, CVA, ARF, Chemo, Hep., AIDS, mental health diagnosis, sleep apnea, morbid obesity)? @ -hiatal hernia Was patient admitted / discharged? Hospital course, mention meds given and route, prescriptions, significant lab abnormalities, going to OR and other pertinent info. @ -Discharged. Upon arrival patient was in the waiting room for a period of time. Laboratory studies were conducted. I did speak with Dr. Hunt. He does request a computed tomography scan with oral contrast. This scan is performed and does demonstrate hiatal hernia. Consider dehiscence due to patient's history. I did call and speak with Dr. Hunt. He is aware of the results. Patient will be discharged home at this time and needs to follow up with Dr. Hunt next week in office. She understood this. She is able to take in small amounts of food at this time. She is instructed that if she is unable to eat at all that she needs to return to the emergency department. Patient was agreeable to the plan and she was discharged in stable condition Undiagnosed new problem with uncertain prognosis? @ -Yes Drug Therapy requiring intensive monitoring for toxicity (Heparin, Nitro, Insulin, Cardizem)? @ -No Were any procedures done? @ -No Diagnosis/symptom? @ -Acute nausea vomiting, suspected hiatal hernia status post Domitila fundoplication 2 Acute, or Chronic, or Acute on Chronic? @ -Acute on chronic Uncomplicated (without systemic symptoms) or Complicated (systemic symptoms)? @ -Complicated Side effects of treatment? @ -No Exacerbation, Progression, or Severe Exacerbation? @ -No Poses a threat to life or bodily function? How? (Chest pain, USA, GA, pneumonia, PE, COPD, DKA, ARF, appy, cholecystitis, CVA, Diverticulitis, Homicidal, Suicidal, threat to staff... and all critical care pts) @ -No (Adriana Anderson) - Lab Data Lab Results 12/24/22 12/24/22 12/24/22 Range/Units 14:33 14:33 14:33 WBC 6.9 (3.8-10.6) k/uL RBC 3.77 L (3.80-5.40) m/uL Hgb 11.4 (11.4-16.0) gm/dL Hct 34.5 (34.0-46.0) % MCV 91.5 (80.0-100.0) fL MCH 30.3 (25.0-35.0) pg MCHC 33.1 (31.0-37.0) g/dL RDW 13.2 (11.5-15.5) % Plt Count 260 (150-450) k/uL MPV 8.9 Neutrophils % 66 % Lymphocytes % 23 % Monocytes % 7 % Eosinophils % 3 % Basophils % 0 % Neutrophils # 4.6 (1.3-7.7) k/uL Lymphocytes # 1.6 (1.0-4.8) k/uL Monocytes # 0.5 (0-1.0) k/uL Eosinophils # 0.2 (0-0.7) k/uL Basophils # 0.0 (0-0.2) k/uL Sodium 136 L (137-145) mmol/L Potassium 4.1 (3.5-5.1) mmol/L Chloride 101 (98-107) mmol/L Carbon Dioxide 26 (22-30) mmol/L Anion Gap 9 mmol/L BUN 14 (7-17) mg/dL Creatinine 0.59 (0.52-1.04) mg/dL Est GFR (CKD-EPI)AfAm >90 (>60 ml/min/1.73 sqM) Est GFR (CKD-EPI)NonAf 89 (>60 ml/min/1.73 sqM) Glucose 95 (74-99) mg/dL Calcium 9.1 (8.4-10.2) mg/dL Total Bilirubin 0.6 (0.2-1.3) mg/dL AST 26 (14-36) U/L ALT 12 (4-34) U/L Alkaline Phosphatase 68 (38-126) U/L Total Protein 6.4 (6.3-8.2) g/dL Albumin 3.8 (3.5-5.0) g/dL Urine Color Yellow Urine Appearance Clear (Clear) Urine pH 6.0 (5.0-8.0) Ur Specific [place] >1.030 (1.001-1.035) Urine Protein Trace (Negative) Urine Glucose (UA) Negative (Negative) Urine Ketones Negative (Negative) Urine Blood Negative (Negative) Urine Nitrite Negative (Negative) Urine Bilirubin Negative (Negative) Urine Urobilinogen <2.0 (<2.0) mg/dL Ur Leukocyte Esterase Small (Negative) Urine RBC <1 (0-5) /hpf Urine WBC 1 (0-5) /hpf Ur Squamous Epith Cells <1 (0-4) /hpf Urine Mucus Many H (None) /hpf Disposition <Merced Cool - Last Filed: 12/24/22 16:03> Is patient prescribed a controlled substance at d/c from ED?: No Time of Disposition: 18:25 <Adrinaa Anderson - Last Filed: 12/24/22 22:30> Clinical Impression: Hiatal hernia, Vomiting Disposition: HOME SELF-CARE Condition: Stable Instructions (If sedation given, give patient instructions): Hiatal Hernia (ED) Additional Instructions: Please call the make an appointment with Dr. Hunt next week. Return for any new or worsening symptoms Referrals: Mera Villar MD [Primary Care Provider] - 1-2 days Roscoe Hunt MD [STAFF PHYSICIAN] - 1-2 days
[2022-12-24] MEDS ORDERED: IOPAMIDOL CONTRAST (ORAL USE) VIAL PO PRN ×2 (16:22→16:27)
[2022-12-24] MEDS ORDERED: ONDANSETRON ODT 4 MG TAB PO STA (17:42)
--- NOTE | 2022-12-24 18:01 | CT ---
EXAMINATION TYPE: CT abdomen pelvis wo con CT DLP: 382.1 mGycm, Automated exposure control for dose reduction was used. DATE OF EXAM: 12/24/2022 5:33 PM COMPARISON: CT abdomen pelvis most recent from 12/02/2022 CLINICAL INDICATION:Female, 77 years old with history of abd pain, vomiting, hernia repair; Abdominal pain, vomiting, recent hernia repair. Bariatric prep per Dr. Hunt TECHNIQUE: Axial CT of the ;CT abdomen pelvis wo con;Sagittal and coronal reformats were created on a separate workstation. Contrast used: mL of , (none if empty) Oral contrast used: with Oral Contrast (none if empty) FINDINGS: LOWER CHEST: Unremarkable ABDOMEN LIVER: Unremarkable GALLBLADDER AND BILE DUCTS: Unremarkable. PANCREAS: Unremarkable. SPLEEN: Unremarkable. ADRENAL GLANDS: Unremarkable. KIDNEYS AND URETERS: No evidence of hydronephrosis or renal calculus. The ureters are unremarkable. Peripelvic renal cysts are seen bilaterally. PELVIS BLADDER: Unremarkable REPRODUCTIVE: Unremarkable. ABDOMEN & PELVIS STOMACH AND BOWEL: No evidence of bowel obstruction. Hiatal hernia with layering ingested oral contra st in the esophagus. This is decrease in size however is persistent. Unclear if this is the dehiscenc e of suture. PERITONEUM/RETROPERITONEUM: No evidence of pneumoperitoneum or free fluid. VASCULATURE: No evidence of aortic aneurysm. MUSCULOSKELETAL: No acute osseous abnormalities. Moderate disc degeneration changes are present throu ghout the thoracolumbar spine. LYMPH NODES: No gross evidence for lymphadenopathy. SOFT TISSUE/ABDOMINAL WALL: There is bilateral inguinal hernias on the right containing loops of smal l bowel. No evidence for obstruction. IMPRESSION: 1. Postsurgical changes to the stomach with moderate hiatal hernia with layering ingested contents i n the esophagus correlate for reflux. No evidence for small bowel obstruction. Hiatal hernia is decre ase in size from 12/02/2022. Correlate with surgical repair history for dehiscence of surgical repair. 2. Bilateral inguinal hernias on the right containing small bowel loops No evidence for obstructive attenuation. 3. Colonic diverticulosis. 4. Bilateral peripelvic renal cysts.
[2022-12-24 18:53] VITALS: BP 124/60; PULSE 80; RESP 18; TEMP 98
== END 2022-12-24 18:49 | disposition home or self-care (01) ==
LOC: EC 14:22
DX: K44.9 Diaphragmatic hernia without obstruction or gangrene (principal); Z88.1 Allergy status to other antibiotic agents; Z88.2 Allergy status to sulfonamides; Z88.8 Allergy status to other drugs, medicaments and biological substances
CPT/HCPCS: 36415; 74176; 80053; 81001; 85025; 99284

== ENCOUNTER → 2023-01-08 | Outpatient (CLI) | payer MEDICARE ==
--- NOTE | 2023-01-08 10:20 | US ---
EXAMINATION TYPE: US venous doppler duplex LE LT DATE OF EXAM: 01/08/2023 10:07 AM COMPARISON: 02/20/2017 CLINICAL INDICATION: Female, 77 years old with history of R22.42 LOCALIZED SWELLING, MASS AND LUMP, L EFT LOW; Left leg swelling for one week SIDE PERFORMED: Left TECHNIQUE: The lower extremity deep venous system is examined utilizing real time linear array sonog gene with graded compression, doppler sonography and color-flow sonography. VESSELS IMAGED: Common Femoral Vein Deep Femoral Vein Greater Saphenous Vein * Femoral Vein Popliteal Vein Small Saphenous Vein * Proximal Calf Veins (* superficial vessels) Grayscale, color doppler, spectral doppler imaging performed of the deep veins of the left lower extr emity. There is normal flow, compressibility, vascular waveforms. Left Leg: Negative for DVT IMPRESSION: No deep venous thrombosis of the left lower extremity.
== END | disposition home or self-care (01) ==
LOC: RADUSWWP 09:30
PROVIDERS: ATTEND Family Medicine
DX: R22.42 Localized swelling, mass and lump, left lower limb (principal); Z98.890 Other specified postprocedural states

== ENCOUNTER 2023-01-13 10:47 | Emergency (ER) | payer MEDICARE ==
--- NOTE | 2023-01-13 11:28 | ED ---
General Adult HPI - General Chief complaint: GI Bleed Stated complaint: low hemaglobin Time Seen by Provider: 01/13/23 10:54 Source: patient, RN notes reviewed, old records reviewed Mode of arrival: ambulatory Limitations: no limitations - History of Present Illness Initial comments: 77-year-old female presenting for evaluation of anemia. Patient had been seen by her primary care provider and had laboratory studies obtained and there was a hemoglobin of 9 and this was new for the patient she was sent in for evaluation. She does admit to one episode of dark emesis today and one episode one week ago. She is approximately 6 weeks status post hiatal hernia repair. Patient denies significant abdominal pain. She reports 2 episodes of vomiting over the course of one week. No fever. No anticoagulation. She reports her stool is brown, no bright blood, no melena - Related Data Home Medications Medication Instructions Recorded Confirmed Hydroxychloroquine Sulfate 200 mg PO DAILY 04/27/22 01/13/23 Calcium Carbonate/Vitamin D3 1 tab PO DAILY 07/24/22 01/13/23 [Calcium 600 mg-D3 10 Mcg (400 Iu)] Famotidine [Pepcid] 20 mg PO BID-W/MEALS 07/24/22 01/13/23 Albuterol Inhaler [Ventolin Hfa 2 puff INHALATION RT-QID PRN 12/02/22 01/13/23 Inhaler] Pramipexole [Mirapex] 1 mg PO HS 12/02/22 01/13/23 Cider Vinegar [Apple Cider Vinegar] 300 mg PO DAILY 01/13/23 01/13/23 Furosemide [Lasix] 20 mg PO DAILY 01/13/23 01/13/23 Previous Rx's Medication Instructions Recorded Acetaminophen Tab [Tylenol] 650 mg PO Q4HR PRN tab 12/07/22 Omeprazole 20 mg PO DAILY #14 cap 01/13/23 Allergies Allergy/AdvReac Type Severity Reaction Status Date / Time estrogens, conjugated Allergy Severe CLOT IN Verified 01/13/23 10:52 [From Premarin] LEGS gabapentin [From Neurontin] Allergy Severe CONSTANT Verified 01/13/23 10:52 MOVEMENT OF WHOLE BODY ciprofloxacin [From Cipro] Allergy muscle and Verified 01/13/23 10:52 bone weakness ciprofloxacin HCl Allergy muscle and Verified 01/13/23 10:52 [From Cipro] bone weakness levofloxacin [From Levaquin] Allergy Rash/Hives Verified 01/13/23 10:52 quinine Allergy WEAKNESS Verified 01/13/23 10:52 IN THE LEGS Sulfa (Sulfonamide Allergy SEVERE Verified 01/13/23 10:52 Antibiotics) WEAKNESS OF LEGS, Hives sulfamethoxazole Allergy SEVERE Verified 01/13/23 10:52 [From Bactrim] WEAKNESS OF LEGS, Hives trimethoprim [From Bactrim] Allergy SEVERE Verified 01/13/23 10:52 WEAKNESS OF LEGS, Hives Review of Systems ROS Statement: Those systems with pertinent positive or pertinent negative responses have been documented in the HPI. ROS Other: All systems not noted in ROS Statement are negative. Past Medical History Past Medical History: Pulmonary Embolus (PE), Skin Disorder Additional Past Medical History / Comment(s): varicose veins, RESTLESS LEG SYNDROME KRISTY. takes mirapex at night,OSTEOPOROSIS ,LUPUS, para esophageal hernia was subsequent repair History of Any Multi-Drug Resistant Organisms: None Reported Past Surgical History: Hernia Repair, Hysterectomy, Orthopedic Surgery Additional Past Surgical History / Comment(s): left carpel tunnnel. esphogeal repair Past Anesthesia/Blood Transfusion Reactions: Postoperative Nausea & Vomiting (PONV) Past Psychological History: No Psychological Hx Reported Smoking Status: Never smoker Past Alcohol Use History: None Reported Past Drug Use History: None Reported - Past Family History Sister(s) Family Medical History: Cancer Daughter(s) Family Medical History: Cancer Father Family Medical History: Cancer Mother Family Medical History: Cancer General Exam Limitations: no limitations General appearance: alert, in no apparent distress Head exam: Present: atraumatic, normocephalic Eye exam: Present: normal appearance, PERRL ENT exam: Present: normal exam Neck exam: Present: normal inspection. Absent: tenderness, meningismus Respiratory exam: Present: normal lung sounds bilaterally. Absent: respiratory distress, wheezes Cardiovascular Exam: Present: regular rate, normal rhythm GI/Abdominal exam: Absent: distended Extremities exam: Present: pedal edema Neurological exam: Present: alert, oriented X3, CN II-XII intact. Absent: motor sensory deficit Psychiatric exam: Present: normal affect, normal mood Course Vital Signs 01/13/23 01/13/23 10:48 12:05 Temperature 98.4 F Pulse Rate 70 58 L Respiratory 16 17 Rate Blood Pressure 113/69 109/63 O2 Sat by Pulse 100 100 Oximetry Medical Decision Making - Medical Decision Making Was pt. sent in by a medical professional or institution (, ELLEN, UNDERGROUND TRUCK OPERATOR, urgent care, hospital, or group home...) When possible be specific @ -No Did you speak to anyone other than the patient for history (EMS, parent, family, police, friend...)? What history was obtained from this source @ -No Did you review nursing and triage notes (agree or disagree)? Why? @ -I reviewed and agree with nursing and triage notes Were old charts reviewed (outside hosp., previous admission, EMS record, old EKG, old radiological studies, urgent care reports/EKG's, group home records)? Report findings @ -No old charts were reviewed Differential Diagnosis (chest pain, altered mental status, abdominal pain women, abdominal pain men, vaginal bleeding, weakness, fever, dyspnea, syncope, headache, dizziness, GI bleed, back pain, seizure, CVA, palpatations, mental health, musculoskeletal)? @ -[Differential GI Bleed: Esophageal varices, aortoenteric fistula, Jessica-Dash, gastritis, peptic ulcer disease, diverticulosis, inflammatory bowel disease, hemorrhoids, fissure, coli tis, malignancy, Meckels diverticulum, this is not meant to be an all-inclusive list. EKG interpreted by me (3pts min.). @ -Sinus rhythm rate of 60, CO interval 173, QRS duration 101, QTC 422, no ST segment elevation. X-rays interpreted by me (1pt min.). @ -None done CT interpreted by me (1pt min.). @ -None done U/S interpreted by me (1pt. min.). @ -None done What testing was considered but not performed or refused? (CT, X-rays, U/S, labs)? Why? @ -None What meds were considered but not given or refused? Why? @ -None Did you discuss the management of the patient with other professionals (professionals i.e. ELLEN Epps, UNDERGROUND TRUCK OPERATOR, lab, RT, psych nurse, manager social services, divorce mediator, teacher, information security officer, case work aide)? Give summary @ -No Was smoking cessation discussed for >3mins.? @ -No Was critical care preformed (if so, how long)? @ -No Were there social determinants of health that impacted care today? How? (Homelessness, low income, unemployed, alcoholism, drug addiction, transportation, low edu. Level, literacy, decrease access to med. care, detention, rehab)? @ -No Was there de-escalation of care discussed even if they declined (Discuss DNR or withdrawal of care, Hospice)? DNR status @ -No What co-morbidities impacted this encounter? (DM, HTN, Smoking, COPD, CAD, Cancer, CVA, ARF, Chemo, Hep., AIDS, mental health diagnosis, sleep apnea, morbid obesity)? @ Recent hiatal hernia repair Was patient admitted / discharged? Hospital course, mention meds given and route, prescriptions, significant lab abnormalities, going to OR and other pertinent info. @ -[Patient presenting with one episode of dark vomit and anemia at 9 from the primary care provider. Patient denies melena or bright red rectal bleeding. She has hemoglobin of 10.4 the emergency department otherwise normal lab testing. She's given a dose of Protonix. We discussed admission for monitoring versus discharge with monitoring at home and repeat laboratory testing as an outpatient. 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 She will monitor her stools closely and return with any dark vomit or dark stool. She will be prescribed omeprazole. She will follow with her primary care closely for repeat laboratory testing. Return parameters discussed in detail. Undiagnosed new problem with uncertain prognosis? @ -No Drug Therapy requiring intensive monitoring for toxicity (Heparin, Nitro, Insulin, Cardizem)? @ -No Were any procedures done? @ -No Diagnosis/symptom? @ -Anemia Acute, or Chronic, or Acute on Chronic? @ -[Acute Uncomplicated (without systemic symptoms) or Complicated (systemic symptoms)? @ -default Side effects of treatment? @ -No Exacerbation, Progression, or Severe Exacerbation? @ -No Poses a threat to life or bodily function? How? (Chest pain, USA, NM, pneumonia, PE, COPD, DKA, ARF, appy, cholecystitis, CVA, Diverticulitis, Homicidal, Suicidal, threat to staff... and all critical care pts) @ -[Low risk at this time - Lab Data Result diagrams: 01/13/23 11:30 01/13/23 11:30 Lab Results 01/13/23 01/13/23 01/13/23 Range/Units 11:30 11:30 11:30 WBC 5.5 (3.8-10.6) k/uL RBC 3.52 L (3.80-5.40) m/uL Hgb 10.4 L (11.4-16.0) gm/dL Hct 31.6 L (34.0-46.0) % MCV 89.7 (80.0-100.0) fL MCH 29.4 (25.0-35.0) pg MCHC 32.8 (31.0-37.0) g/dL RDW 12.9 (11.5-15.5) % Plt Count 291 (150-450) k/uL MPV 8.7 Neutrophils % 60 % Lymphocytes % 27 % Monocytes % 7 % Eosinophils % 2 % Basophils % 0 % Neutrophils # 3.3 (1.3-7.7) k/uL Lymphocytes # 1.5 (1.0-4.8) k/uL Monocytes # 0.4 (0-1.0) k/uL Eosinophils # 0.1 (0-0.7) k/uL Basophils # 0.0 (0-0.2) k/uL Hypochromasia Slight PT 10.6 (10.0-12.5) sec INR 1.0 (<1.2) APTT 26.9 (22.0-30.0) sec Sodium 137 (137-145) mmol/L Potassium 4.1 (3.5-5.1) mmol/L Chloride 101 (98-107) mmol/L Carbon Dioxide 29 (22-30) mmol/L Anion Gap 7 mmol/L BUN 10 (7-17) mg/dL Creatinine 0.67 (0.52-1.04) mg/dL Est GFR (CKD-EPI)AfAm >90 (>60 ml/min/1.73 sqM) Est GFR (CKD-EPI)NonAf 86 (>60 ml/min/1.73 sqM) Glucose 102 H (74-99) mg/dL Calcium 8.9 (8.4-10.2) mg/dL Magnesium 1.8 (1.6-2.3) mg/dL Total Bilirubin 0.5 (0.2-1.3) mg/dL AST 28 (14-36) U/L ALT 13 (4-34) U/L Alkaline Phosphatase 77 (38-126) U/L Total Protein 6.0 L (6.3-8.2) g/dL Albumin 3.5 (3.5-5.0) g/dL Lipase 57 (23-300) U/L Disposition Clinical Impression: Vomiting, Anemia Disposition: HOME SELF-CARE Condition: Fair Instructions (If sedation given, give patient instructions): Anemia (ED) Prescriptions: Omeprazole 20 mg PO DAILY #14 cap Is patient prescribed a controlled substance at d/c from ED?: No Referrals: Mera Villar MD [Primary Care Provider] - 1-2 days Time of Disposition: 12:45
[2023-01-13 11:40] LABS: Basophils % (A) 0 %; Eosinophils # (A) 0.1 k/uL (0-0.7); Eosinophils % (A) 2 %; HCT 31.6 % (34.0-46.0); HGB 10.4 gm/dL (11.4-16.0); Hypochromasia Slight; Lymphocytes # (A) 1.5 k/uL (1.0-4.8); Lymphocytes % (A) 27 %; MCH 29.4 pg (25.0-35.0); MCHC 32.8 g/dL (31.0-37.0); MCV 89.7 fL (80.0-100.0); Mean Platelet Volume 8.7; Monocytes # (A) 0.4 k/uL (0-1.0); Monocytes % (A) 7 %; Neutrophils # (A) 3.3 k/uL (1.3-7.7); Neutrophils % (A) 60 %; Platelet Count 291 k/uL (150-450); RBC 3.52 m/uL (3.80-5.40); RDW 12.9 % (11.5-15.5); WBC 5.5 k/uL (3.8-10.6)
[2023-01-13 11:47] LABS: ALT 13 U/L (4-34); AST 28 U/L (14-36); African American GFR (CKD) >90 (>60 ml/min/1.73 sqM); Albumin 3.5 g/dL (3.5-5.0); Alkaline Phosphatase 77 U/L (38-126); Anion Gap 7 mmol/L; Blood Urea Nitrogen 10 mg/dL (7-17); Calcium 8.9 mg/dL (8.4-10.2); Carbon Dioxide 29 mmol/L (22-30); Chloride 101 mmol/L (98-107); Glucose 102 mg/dL (74-99); Lipase 57 U/L (23-300); Magnesium 1.8 mg/dL (1.6-2.3); Non-African American GFR(CKD) 86 (>60 ml/min/1.73 sqM); Potassium 4.1 mmol/L (3.5-5.1); Sodium 137 mmol/L (137-145); Total Bilirubin 0.5 mg/dL (0.2-1.3)
[2023-01-13 11:50] LABS: Partial Thromboplastin Time 26.9 sec (22.0-30.0); Prothrombin Time 10.6 sec (10.0-12.5)
[2023-01-13] MEDS ORDERED: PANTOPRAZOLE 40 MG/10 ML VIAL IVP STA (12:07)
[2023-01-13 12:25] VITALS: BP 109/63; PULSE 58; RESP 17
[2023-01-13 12:54] VITALS: TEMP 98
== END 2023-01-13 12:57 | disposition home or self-care (01) ==
LOC: EC 10:47
DX: D64.9 Anemia, unspecified (principal); Z88.2 Allergy status to sulfonamides; Z88.3 Allergy status to other anti-infective agents; Z88.8 Allergy status to other drugs, medicaments and biological substances
CPT/HCPCS: 36415; 93005; 86900; 86901; 80053; 83690; 83735; 85025; 85610; 85730; 86850; 99285; 96374; C9113

== ENCOUNTER → 2023-02-03 | Outpatient (CLI) | payer MEDICARE ==
--- NOTE | 2023-02-07 18:09 | MM ---
Reason for Exam: Screening (asymptomatic). Last mammogram was performed 1 year(s) and 1 month(s) ago. Patient History: Menarche at age 14. First Full-Term at age 28. Hysterectomy at age 74. Postmenopausal. Patient has history of breast feeding. Estrogen for 2 months. Mother had breast cancer, age 80. Risk Values: Jeimy 5 year model risk: 3.5%. NCI Lifetime model risk: 7.0%. Prior Study Comparison: 04/27/2017 Bilateral Screening Mammogram, [facility]. 09/22/2019 Bilateral Screening Mammogram, [facility]. 01/28/2022 Bilateral MG 3D screening mammo w/cad, [facility]. Tissue Density: There are scattered fibroglandular densities. Findings: Analyzed By CAD. Unchanged asymmetric density laterally on the left CC view. There is no suspicious group of microcalcifications or new suspicious mass in either breast. Overall Assessment: Benign, BI-RAD 2 Management: Screening Mammogram of both breasts in 1 year. See note below in regards to patient's increased 5 year Jeimy score. Patient should continue monthly self-breast exams. A clinical breast exam by your physician is recommended on an annual basis. This exam should not preclude additional follow-up of suspicious palpable abnormalities. Note on Jeimy scores and lifetime risk: 1. A Jeimy score greater than 3% is considered moderate risk. If this is the case, consider specialist referral to assess eligibility for a risk reducing agent. 2. If overall lifetime risk for the development of breast cancer is 20% or higher, the patient may qualify for future screening with alternating mammogram and breast MRI. Electronically signed and approved by: Tremayne Weiss M.D. Radiologist
== END | disposition home or self-care (01) ==
LOC: RADMAMWWP 14:58
PROVIDERS: ATTEND Family Medicine
DX: Z12.31 Encounter for screening mammogram for malignant neoplasm of breast (principal); Z78.0 Asymptomatic menopausal state; Z80.3 Family history of malignant neoplasm of breast
CPT/HCPCS: 77063; 77067

== ENCOUNTER → 2023-03-03 | Outpatient (CLI) | payer MEDICARE ==
--- NOTE | 2023-03-03 12:58 | US ---
EXAMINATION TYPE: US venous doppler duplex LE LT DATE OF EXAM: 03/03/2023 12:08 PM COMPARISON: 01/08/23 CLINICAL INDICATION: Female, 77 years old with history of R22.42LOCALIZED SWELLING, MASS AND LUMP, LE FT LOWE; SIDE PERFORMED: Left TECHNIQUE: The lower extremity deep venous system is examined utilizing real time linear array sonog gene with graded compression, doppler sonography and color-flow sonography. VESSELS IMAGED: Common Femoral Vein Deep Femoral Vein Greater Saphenous Vein * Femoral Vein Popliteal Vein Small Saphenous Vein * Proximal Calf Veins (* superficial vessels) Left Leg: Negative for DVT: complex cystic area noted medial left popliteal fossa measuring 4.5 x 2. 6 x 2.0 cm IMPRESSION: Grayscale, color doppler, spectral doppler imaging performed of the deep veins of the lo wer extremities. There is normal flow, compressibility, vascular waveforms.
== END | disposition home or self-care (01) ==
LOC: RADUSWWP 11:43
PROVIDERS: ATTEND Psychiatry & Neurology Neurology
DX: I82.409 Acute embolism and thrombosis of unspecified deep veins of unspecified lower extremity (principal); R22.42 Localized swelling, mass and lump, left lower limb

== ENCOUNTER → 2023-03-04 | Outpatient (CLI) | payer MEDICARE ==
[2023-03-04 15:42] LABS: HCT 28.8 % (37.2-46.3); HGB 8.7 g/dL (12.0-15.0); MCHC 30.2 g/dL (32.0-37.0); MCV 86.2 FL (80.0-97.0); Mean Platelet Volume 10.1 FL (9.5-12.2); NRBC Per 100 WBC 0 X 10*3/uL (0.00-0.01); Platelet Count 581 X 10*3/uL (140-440); RBC 3.34 X 10*6/uL (4.10-5.20); RDW 14.6 % (11.5-14.5); WBC 7.73 X 10*3/uL (4.50-10.00)
[2023-03-04 16:15] LABS: ALT 9 U/L (8-44); AST 17 U/L (13-35); Albumin 3.3 g/dL (3.8-4.9); Albumin/Globulin Ratio 1.57 Ratio (1.60-3.17); Alkaline Phosphatase 104 U/L (41-126); Amylase 35 U/L (23-121); BUN/Creat Ratio 12.14 Ratio (12.00-20.00); Blood Urea Nitrogen 8.5 mg/dL (9.0-27.0); Calcium 8.8 mg/dL (8.7-10.3); Carbon Dioxide 25.7 mmol/L (21.6-31.8); Chloride 100 mmol/L (96-109); Globulin 2.1 g/dL (1.6-3.3); Glucose 86 mg/dL (70-110); Lipase 13 U/L (14-63); Potassium 4.3 mmol/L (3.5-5.5); Sodium 138 mmol/L (135-145); Total Bilirubin 0.2 mg/dL (0.3-1.2); Total Protein 5.4 g/dL (6.2-8.2)
== END | disposition home or self-care (01) ==
LOC: LABWHC1 09:57
PROVIDERS: ATTEND Thoracic Surgery (Cardiothoracic Vascular Surgery)
DX: Z01.812 Encounter for preprocedural laboratory examination (principal); R10.84 Generalized abdominal pain
CPT/HCPCS: 36415; 80053; 82150; 83690; 85027

== ENCOUNTER → 2023-03-11 | Day surgery (SDC) | payer MEDICARE ==
[2023-03-05 11:08] VITALS: BMI 22.6
[~2023-03-11] MED LIST changes: +LIDOCAINE 1% INJ 10MG/ML (20 ML MDV) ONE; +PROPOFOL 10 MG/ML 20 ML VIAL IV ONE
[2023-03-11 08:54] VITALS: TEMP 96.9
--- NOTE | 2023-03-11 12:16 | P.OP ---
Date of Procedure: 03/11/23 Preoperative Diagnosis: Emesis status post hiatal hernia repair Postoperative Diagnosis: Same Procedure(s) Performed: Esophagogastroscopy with serial dilatation over a wire of the GE junction under fluoroscopy Anesthesia: ELIAS Surgeon: Roscoe Hunt Pathology: none sent Condition: stable Disposition: PACU Indications for Procedure: 77-year-old female is status post hiatal hernia repair. This was initially complicated by early recurrence. The patient was reoperated on. At that time she had a antireflux procedure performed area is recovered well. Her GE junction is below the level of the diaphragm by x-ray criteria. However she has had intermittent repeated episodes of emesis. Operative Findings: There was old food present in the distal esophagus. There did not appear to be any significant obstruction to passing the scope. Dilation appeared to proceed uneventfully. Description of Procedure: Gastroscope was passed easily into the proximal esophagus. In the distal esophagus we noted some old food that was accumulated. Scope passed without difficulty into the stomach. Wire was placed in the stomach. Scope was removed with fluoroscopy maintaining the wire in the stomach. Dilators were then placed serially over the wire under fluoroscopic guidance. We began with a 36-Malawian dilator. We then passed a 39-Malawian dilator and then a 42 and finally a 48. Patient tolerated the procedure well. There was no evidence of blood or other disturbing findings. After the final dilatation the wire and dilator were removed. Patient was transferred to recovery in stable condition.
--- NOTE | 2023-03-11 12:54 | XR ---
EXAMINATION TYPE: XR chest 1V portable DATE OF EXAM: 03/11/2023 Comparison: 12/06/2022 Clinical History: 77-year-old female post EGD Findings: Heart borderline in size. Mild hyperinflation. There is some patchy opacity medial right base. No pne umomediastinum, pneumothorax, consolidation, or significant pleural effusion identified. Impression: Borderline heart size. Possible underlying COPD. There is some patchy opacity at the medial right bas e that could represent atelectasis or early infiltrate. The former is favored.
[2023-03-11 13:00] VITALS: BP 117/71; PULSE 71; RESP 14
--- NOTE | 2023-03-11 19:46 | FL ---
EXAMINATION TYPE: FL guidance operating room DATE OF EXAM: 03/11/2023 Comparison: None Clinical History: 77-year-old female ESOPHAGEAL DILATION Findings: 72 sec FL 3.8567 Gycm2 DAP dose 1 image submitted Impression: Procedure fluoroscopy as above.
== END | disposition home or self-care (01) ==
LOC: ORWHC2ENDO 08:12
PROVIDERS: ATTEND Thoracic Surgery (Cardiothoracic Vascular Surgery)
DX: R11.2 Nausea with vomiting, unspecified (principal); Z98.890 Other specified postprocedural states; Z87.19 Personal history of other diseases of the digestive system; K21.9 Gastro-esophageal reflux disease without esophagitis; M32.9 Systemic lupus erythematosus, unspecified; G25.81 Restless legs syndrome; Z86.718 Personal history of other venous thrombosis and embolism; Z86.711 Personal history of pulmonary embolism; Z88.2 Allergy status to sulfonamides; Z88.3 Allergy status to other anti-infective agents; Z88.8 Allergy status to other drugs, medicaments and biological substances; Z80.3 Family history of malignant neoplasm of breast; Z80.8 Family history of malignant neoplasm of other organs or systems
CPT/HCPCS: 71045; 43248; J2001; J2704

== ENCOUNTER 2023-09-27 11:35 | Observation (INO) | payer MEDICARE ==
[2023-09-27 12:18] LABS: ALT 10 U/L (4-34); AST 28 U/L (14-36); African American GFR (CKD) >90 (>60 ml/min/1.73 sqM); Albumin 3.2 g/dL (3.5-5.0); Alkaline Phosphatase 68 U/L (38-126); Anion Gap 3 mmol/L; Blood Urea Nitrogen 18 mg/dL (7-17); Calcium 8.5 mg/dL (8.4-10.2); Carbon Dioxide 27 mmol/L (22-30); Chloride 107 mmol/L (98-107); Glucose 86 mg/dL (74-99); Non-African American GFR(CKD) 89 (>60 ml/min/1.73 sqM); Potassium 4.4 mmol/L (3.5-5.1); Sodium 137 mmol/L (137-145); Total Bilirubin 0.3 mg/dL (0.2-1.3); Total Protein 5.5 g/dL (6.3-8.2)
[2023-09-27 12:25] LABS: Partial Thromboplastin Time 23.7 sec (22.0-30.0); Prothrombin Time 10.5 sec (10.0-12.5)
[2023-09-27 12:26] LABS: Anisocytosis Slight; HCT 21.5 % (34.0-46.0); Hypochromasia Marked; MCH 17.8 pg (25.0-35.0); MCHC 26.8 g/dL (31.0-37.0); MCV 66.4 fL (80.0-100.0); Mean Platelet Volume 7.1; Microcytosis Marked; Platelet Count 385 k/uL (150-450); RBC 3.24 m/uL (3.80-5.40); RDW 16.8 % (11.5-15.5); WBC 3.6 k/uL (3.8-10.6)
[2023-09-27 12:31] LABS: HGB 5.8 gm/dL (11.4-16.0)
--- NOTE | 2023-09-27 12:34 | ED ---
Recheck HPI - General Chief Complaint: Recheck/Abnormal Lab/Rx Stated Complaint: Transfusion Time Seen by Provider: 09/27/23 11:43 Source: patient, RN notes reviewed Mode of arrival: ambulatory Limitations: no limitations - History of Present Illness Initial Comments: This is a 77-year-old female who presents to the emergency department for low hemoglobin. She had blood work done 3 days ago and received a phone call stating that her hemoglobin was 5.8 and she needed to come to the emergency department for evaluation. Denies a history of her hemoglobin being this low in the past. She is not taking blood thinners. Denies any abdominal pain or brigitte ck/tarry stools. She does note feeling very fatigued and weak. States that she has been falling asleep standing up. Denies any chest pain or shortness of breath. MD Complaint: abnormal lab - Related Data Home Medications Medication Instructions Recorded Confirmed Hydroxychloroquine Sulfate 200 mg PO Q2D 04/27/22 09/27/23 Pramipexole [Mirapex] 1 mg PO HS 12/02/22 09/27/23 Cefdinir 300 mg PO BID 09/27/23 09/27/23 Famotidine [Pepcid] 40 mg PO BID 09/27/23 09/27/23 Hydroxychloroquine Sulfate 400 mg PO Q2D 09/27/23 09/27/23 [Plaquenil] Allergies Allergy/AdvReac Type Severity Reaction Status Date / Time levofloxacin [From Levaquin] Allergy Rash/Hives Verified 09/27/23 13:10 Sulfa (Sulfonamide Allergy SEVERE Verified 09/27/23 13:10 Antibiotics) WEAKNESS OF LEGS, Hives sulfamethoxazole Allergy SEVERE Verified 09/27/23 13:10 [From Bactrim] WEAKNESS OF LEGS, Hives trimethoprim [From Bactrim] Allergy SEVERE Verified 09/27/23 13:10 WEAKNESS OF LEGS, Hives estrogens, conjugated AdvReac Severe CLOT IN Verified 09/27/23 13:10 [From Premarin] LEGS gabapentin [From Neurontin] AdvReac Severe CONSTANT Verified 09/27/23 13:10 MOVEMENT OF WHOLE BODY ciprofloxacin [From Cipro] AdvReac muscle and Verified 09/27/23 13:10 bone weakness ciprofloxacin HCl AdvReac muscle and Verified 09/27/23 13:10 [From Cipro] bone weakness quinine AdvReac WEAKNESS Verified 09/27/23 13:10 IN THE LEGS Review of Systems ROS Statement: Those systems with pertinent positive or pertinent negative responses have been documented in the HPI. ROS Other: All systems not noted in ROS Statement are negative. Past Medical History Past Medical History: Osteoarthritis (OA), Pulmonary Embolus (PE), Skin Disorder Additional Past Medical History / Comment(s): varicose veins, RESTLESS LEG SYNDROME KRISTY. takes mirapex at night,OSTEOPOROSIS ,LUPUS, para esophageal hernia was subsequent repair ,12/03 superficial rough spot to leg and now is skin cancer and removing at end of History of Any Multi-Drug Resistant Organisms: None Reported Past Surgical History: Bladder Surgery, Hernia Repair, Hysterectomy, Orthopedic Surgery Additional Past Surgical History / Comment(s): left carpel tunnnel. esphogeal repair, cysocele and rectocele Past Anesthesia/Blood Transfusion Reactions: Postoperative Nausea & Vomiting (PONV) Additional Past Anesthesia/Blood Transfusion Reaction / Comment(s): no blood transfusion Past Psychological History: No Psychological Hx Reported Smoking Status: Never smoker Past Alcohol Use History: None Reported Past Drug Use History: None Reported - Past Family History Sister(s) Family Medical History: Cancer Additional Family Medical History / Comment(s): skin cancer to face Daughter(s) Family Medical History: Cancer Additional Family Medical History / Comment(s): breast bilateral Father Family Medical History: Cancer Additional Family Medical History / Comment(s): thyroid Mother Family Medical History: Cancer Additional Family Medical History / Comment(s): breast and leg General Exam Limitations: no limitations General appearance: alert, in no apparent distress Head exam: Present: atraumatic, normocephalic, normal inspection Respiratory exam: Present: normal lung sounds bilaterally. Absent: respiratory distress, wheezes, rales, rhonchi, stridor Cardiovascular Exam: Present: regular rate, normal rhythm, normal heart sounds. Absent: systolic murmur, diastolic murmur, rubs, gallop, clicks GI/Abdominal exam: Present: soft, normal bowel sounds. Absent: distended, tend erness, guarding, rebound, rigid Neurological exam: Present: alert, oriented X3, CN II-XII intact Psychiatric exam: Present: normal affect, normal mood Skin exam: Present: warm, dry, intact, normal color. Absent: rash Course Vital Signs 09/27/23 09/27/23 09/27/23 11:36 12:00 13:00 Temperature 97.8 F Pulse Rate 85 75 Respiratory 18 20 20 Rate Blood Pressure 109/58 110/61 O2 Sat by Pulse 100 99 Oximetry 09/27/23 09/27/23 09/27/23 13:22 13:30 13:45 Temperature 97 F L 97.8 F 98.8 F Pulse Rate 72 72 75 Respiratory 20 16 20 Rate Blood Pressure 110/61 111/59 100/54 O2 Sat by Pulse 99 98 100 Oximetry 09/27/23 09/27/23 09/27/23 14:00 14:15 14:30 Temperature 98 F 97.0 F L 97.8 F Pulse Rate 76 77 70 Respiratory 16 16 16 Rate Blood Pressure 110/74 101/62 99/56 O2 Sat by Pulse 100 98 Oximetry 09/27/23 09/27/23 09/27/23 15:00 15:15 15:30 Temperature 97.8 F Pulse Rate 72 68 73 Respiratory 20 16 20 Rate Blood Pressure 100/60 100/60 100/60 O2 Sat by Pulse 99 98 98 Oximetry 09/27/23 09/27/23 09/27/23 16:00 16:12 17:00 Temperature 98 F 98.1 F Pulse Rate 60 63 72 Respiratory 16 17 20 Rate Blood Pressure 102/60 113/52 101/58 O2 Sat by Pulse 98 100 98 Oximetry 09/27/23 17:16 Temperature Pulse Rate 78 Respiratory 20 Rate Blood Pressure 102/68 O2 Sat by Pulse 96 Oximetry Medical Decision Making - Medical Decision Making This is a 77 year old female who presents to the emergency department for low hemoglobin. Was pt. sent in by a medical professional or institution? @ -Her PCP Did you speak to anyone other than the patient for history? @ -No Did you review nursing and triage notes? @ -Yes, and I agree, it is accurate with regards to the patient's symptoms. Were old charts reviewed? @ -Hemoglobin from 09/24/2023 which was 5.8. Differential Diagnosis? @ -Differential Low Hemoglobin: Anemia, blood loss, renal disease, coagulopathy, this is not meant to be an all- inclusive list. EKG interpreted by me (3pts min.)? @ -EKG interpreted by me demonstrating the following: Sinus rhythm. Ventricular rate 71 bpm, LA interval 154 ms, QRS duration 86 ms, QTc 423 ms. X-rays interpreted by me (1pt min.)? @ -Not obtained CT interpreted by me (1pt min.)? @ -Not obtained U/S interpreted by me (1pt. min.)? @ -Not obtained What testing was considered but not performed? (CT, X-rays, U/S, labs)? Why? @ -None What meds were considered but not given? Why? @ -None Did you discuss the management of the patient with other professionals? @ -Yes, Dr. Hinkle, who accepts the patient for admission. Did you reconcile home meds? @ -Yes Was smoking cessation discussed for >3mins.? @ -No Was critical care preformed (if so, how long)? @ -No Were there social determinants of health that impacted care today? How? (Homelessness, low income, unemployed, alcoholism, drug addiction, transportation, low edu. Level, literacy, decrease access to med. care, halfway, rehab)? @ -No Was there de-escalation of care discussed even if they declined? (Discuss DNR or withdrawal of care, Hospice)? @ -No What co-morbidities impacted this encounter? (DM, HTN, Smoking, COPD, CAD, Cancer, CVA, Hep., AIDS, mental health diagnosis, sleep apnea, morbid obesity)? @ -None Was patient admitted / discharged? @ -Admitted. Lab work demonstrates a hemoglobin of 5.8. This is the same as it was 3 days ago. Lab work was otherwise unremarkable. Patient transfused with 2 units of PRBCs. Iron panel ordered, however this is a send out test. Stool occult negative. Urinalysis pending at the time of admission. She is not exhibiting any GI symptoms and all of her symptoms are related to feeling fatigued and sleeping excessively. Patient admitted to medicine for anemia of unknown etiology. Case discussed with ED attending Dr. Anderson. Undiagnosed new problem with uncertain prognosis? @ -None Drug Therapy requiring intensive monitoring for toxicity (Heparin, Nitro, Insulin, Cardizem)? @ -None Were any procedures done? @ -None Diagnosis/symptom? @ -Anemia of unknown etiology Acute, or Chronic, or Acute on Chronic? @ -Acute Uncomplicated (without systemic symptoms) or Complicated (systemic symptoms)? @ -Complicated Side effects of treatment? @ -None Exacerbation, Progression, or Severe Exacerbation] @ -Not applicable Poses a threat to life or bodily function? @ -Yes, can become life-threatening if the hemoglobin continues to decrease. - Lab Data Result diagrams: 09/27/23 11:55 09/27/23 11:55 Lab Results 09/27/23 09/27/23 09/27/23 Range/Units 11:55 11:55 11:55 WBC 3.6 L (3.8-10.6) k/uL RBC 3.24 L (3.80-5.40) m/uL Hgb 5.8 L* (11.4-16.0) gm/dL Hct 21.5 L (34.0-46.0) % MCV 66.4 L (80.0-100.0) fL MCH 17.8 L (25.0-35.0) pg MCHC 26.8 L (31.0-37.0) g/dL RDW 16.8 H (11.5-15.5) % Plt Count 385 (150-450) k/uL MPV 7.1 Neutrophils % Not Reportable Neutrophils % (Manual) 55 % Lymphocytes % Not Reportable Lymphocytes % (Manual) 32 % Monocytes % Not Reportable Monocytes % (Manual) 9 % Eosinophils % Not Reportable Eosinophils % (Manual) 4 % Basophils % Not Reportable Neutrophils # Not Reportable Neutrophils # (Manual) 1.98 (1.3-7.7) k/uL Lymphocytes # Not Reportable Lymphocytes # (Manual) 1.15 (1.0-4.8) k/uL Monocytes # Not Reportable Monocytes # (Manual) 0.32 (0-1.0) k/uL Eosinophils # Not Reportable Eosinophils # (Manual) 0.14 (0-0.7) k/uL Basophils # Not Reportable Nucleated RBCs 0 (0-0) /100 WBC Manual Slide Review Performed Hypochromasia Marked Anisocytosis Slight Microcytosis Marked PT 10.5 (10.0-12.5) sec INR 1.0 (<1.2) APTT 23.7 (22.0-30.0) sec Sodium 137 (137-145) mmol/L Potassium 4.4 (3.5-5.1) mmol/L Chloride 107 (98-107) mmol/L Carbon Dioxide 27 (22-30) mmol/L Anion Gap 3 mmol/L BUN 18 H (7-17) mg/dL Creatinine 0.59 (0.52-1.04) mg/dL Est GFR (CKD-EPI)AfAm >90 (>60 ml/min/1.73 sqM) Est GFR (CKD-EPI)NonAf 89 (>60 ml/min/1.73 sqM) Glucose 86 (74-99) mg/dL Calcium 8.5 (8.4-10.2) mg/dL Iron (50-170) UG/DL TIBC (228-460) UG/DL % Saturation (12.00-45.00) Transferrin (204.0-354.0) mg/dL Total Bilirubin 0.3 (0.2-1.3) mg/dL AST 28 (14-36) U/L ALT 10 (4-34) U/L Alkaline Phosphatase 68 (38-126) U/L Total Protein 5.5 L (6.3-8.2) g/dL Albumin 3.2 L (3.5-5.0) g/dL Stool Occult Blood (Negative) Blood Type Blood Type Recheck Bld Type Recheck Status Antibody Screen Crossmatch Spec Expiration Date 09/27/23 09/27/23 09/27/23 Range/Units 11:55 11:55 15:11 WBC (3.8-10.6) k/uL RBC (3.80-5.40) m/uL Hgb (11.4-16.0) gm/dL Hct (34.0-46.0) % MCV (80.0-100.0) fL MCH (25.0-35.0) pg MCHC (31.0-37.0) g/dL RDW (11.5-15.5) % Plt Count (150-450) k/uL MPV Neutrophils % Neutrophils % (Manual) % Lymphocytes % Lymphocytes % (Manual) % Monocytes % Monocytes % (Manual) % Eosinophils % Eosinophils % (Manual) % Basophils % Neutrophils # Neutrophils # (Manual) (1.3-7.7) k/uL Lymphocytes # Lymphocytes # (Manual) (1.0-4.8) k/uL Monocytes # Monocytes # (Manual) (0-1.0) k/uL Eosinophils # Eosinophils # (Manual) (0-0.7) k/uL Basophils # Nucleated RBCs (0-0) /100 WBC Manual Slide Review Hypochromasia Anisocytosis Microcytosis PT (10.0-12.5) sec INR (<1.2) APTT (22.0-30.0) sec Sodium (137-145) mmol/L Potassium (3.5-5.1) mmol/L Chloride (98-107) mmol/L Carbon Dioxide (22-30) mmol/L Anion Gap mmol/L BUN (7-17) mg/dL Creatinine (0.52-1.04) mg/dL Est GFR (CKD-EPI)AfAm (>60 ml/min/1.73 sqM) Est GFR (CKD-EPI)NonAf (>60 ml/min/1.73 sqM) Glucose (74-99) mg/dL Calcium (8.4-10.2) mg/dL Iron 7 L (50-170) UG/DL TIBC 396 (228-460) UG/DL % Saturation 1.77 L (12.00-45.00) Transferrin 283.0 (204.0-354.0) mg/dL Total Bilirubin (0.2-1.3) mg/dL AST (14-36) U/L ALT (4-34) U/L Alkaline Phosphatase (38-126) U/L Total Protein (6.3-8.2) g/dL Albumin (3.5-5.0) g/dL Stool Occult Blood Negative (Negative) Blood Type A Positive Blood Type Recheck A Pos Bld Type Recheck Status No Antibody Screen NEGATIVE Crossmatch See Detail Spec Expiration Date 09/30/20232354 Disposition Clinical Impression: Anemia of unknown etiology Disposition: ADMITTED IP TO THIS HOSP
[2023-09-27 13:42] LABS: Eosinophils # (M) 0.14 k/uL (0-0.7); Lymphocytes # (M) 1.15 k/uL (1.0-4.8); Monocytes # (M) 0.32 k/uL (0-1.0); Neutrophils # (M) 1.98 k/uL (1.3-7.7); Neutrophils % (M) 55 %; Nucleated Red Blood Cells 0 /100 WBC (0-0); Total Cells Counted 100
[2023-09-27] MEDS ORDERED: ACETAMINOPHEN TAB 325 MG TAB PO PRN (16:09)
[2023-09-27] MEDS ORDERED: HYDROcodone/APAP 5-325MG 1 EACH TAB PO PRN (16:09)
[2023-09-27] MEDS ORDERED: ONDANSETRON 4 MG/2 ML VIAL IVP PRN (16:09)
[2023-09-27] MEDS ORDERED: NALOXONE 0.4 MG/ML 1 ML VIAL IV PRN (16:09)
[2023-09-27] MEDS: PANTOPRAZOLE 40 MG/10 ML VIAL IVP STA (16:50)
[2023-09-27] MEDS: HYDROXYCHLOROQUINE SULFATE 200 MG TAB PO SCH ×2 (17:12)
--- NOTE | 2023-09-27 17:15 | P.HPIM ---
History of Present Illness H&P Date: 09/27/23 Rebecca Thakkar, is a 77-year-old female who presented to [facility] emergency room with a chief complaint of generalized weakness and fatigue, patient had an outpatient blood test 3 days ago she received a call from her physician today to go to the emergency room due to severe anemia with hemoglobin of 5 point 6 repeat hemoglobin today was 5.8, 2 units of red blood cells transfusion were ordered in the emergency room, patient was admitted to medical floor and gastroenterology consultation was requested. She was evaluated in the emergency room vital examination on presentation revealed a temperature of 98 pulse 70 respiration 20 blood pressure 100/60 pulse ox 99% on room air Laboratory data reveals a white blood count of 3.6 hemoglobin 5.8 platelet count 385 sodium 136 potassium 4.4 chloride 107 CO2 27 BUN 18 creatinine 0.59 Testing in the emergency room revealed EKG revealed sinus rhythm with low QRS voltage Patient was admitted to medical floor for further evaluation and treatment Past Medical History Past Medical History: Osteoarthritis (OA), Pulmonary Embolus (PE), Skin Disorder Additional Past Medical History / Comment(s): varicose veins, RESTLESS LEG SYNDROME KRISTY. takes mirapex at night,OSTEOPOROSIS ,LUPUS, para esophageal hernia was subsequent repair ,12/03 superficial rough spot to leg and now is skin cancer and removing at end of History of Any Multi-Drug Resistant Organisms: None Reported Past Surgical History: Bladder Surgery, Hernia Repair, Hysterectomy, Orthopedic Surgery Additional Past Surgical History / Comment(s): left carpel tunnnel. esphogeal repair, cysocele and rectocele Past Anesthesia/Blood Transfusion Reactions: Postoperative Nausea & Vomiting (PONV) Additional Past Anesthesia/Blood Transfusion Reaction / Comment(s): no blood transfusion Past Psychological History: No Psychological Hx Reported Smoking Status: Never smoker Past Alcohol Use History: None Reported Past Drug Use History: None Reported - Past Family History Sister(s) Family Medical History: Cancer Additional Family Medical History / Comment(s): skin cancer to face Daughter(s) Family Medical History: Cancer Additional Family Medical History / Comment(s): breast bilateral Father Family Medical History: Cancer Additional Family Medical History / Comment(s): thyroid Mother Family Medical History: Cancer Additional Family Medical History / Comment(s): breast and leg Medications and Allergies Home Medications Medication Instructions Recorded Confirmed Type Hydroxychloroquine Sulfate 200 mg PO Q2D 04/27/22 09/27/23 History Pramipexole [Mirapex] 1 mg PO HS 12/02/22 09/27/23 History Cefdinir 300 mg PO BID 09/27/23 09/27/23 History Famotidine [Pepcid] 40 mg PO BID 09/27/23 09/27/23 History Hydroxychloroquine Sulfate 400 mg PO Q2D 09/27/23 09/27/23 History [Plaquenil] Allergies Allergy/AdvReac Type Severity Reaction Status Date / Time levofloxacin [From Levaquin] Allergy Rash/Hives Verified 09/27/23 13:10 Sulfa (Sulfonamide Allergy SEVERE Verified 09/27/23 13:10 Antibiotics) WEAKNESS OF LEGS, Hives sulfamethoxazole Allergy SEVERE Verified 09/27/23 13:10 [From Bactrim] WEAKNESS OF LEGS, Hives trimethoprim [From Bactrim] Allergy SEVERE Verified 09/27/23 13:10 WEAKNESS OF LEGS, Hives estrogens, conjugated AdvReac Severe CLOT IN Verified 09/27/23 13:10 [From Premarin] LEGS gabapentin [From Neurontin] AdvReac Severe CONSTANT Verified 09/27/23 13:10 MOVEMENT OF WHOLE BODY ciprofloxacin [From Cipro] AdvReac muscle and Verified 09/27/23 13:10 bone weakness ciprofloxacin HCl AdvReac muscle and Verified 09/27/23 13:10 [From Cipro] bone weakness quinine AdvReac WEAKNESS Verified 09/27/23 13:10 IN THE LEGS Physical Exam Vitals: Vital Signs Temp Pulse Resp BP Pulse Ox 09/27/23 16:00 98 F 60 16 102/60 98 09/27/23 15:30 73 20 100/60 98 09/27/23 15:15 97.8 F 68 16 100/60 98 09/27/23 15:00 72 20 100/60 99 09/27/23 14:30 97.8 F 70 16 99/56 09/27/23 14:15 97.0 F L 77 16 101/62 98 09/27/23 14:00 98 F 76 16 110/74 100 09/27/23 13:45 98.8 F 75 20 100/54 100 09/27/23 13:30 97.8 F 72 16 111/59 98 09/27/23 13:22 97 F L 72 20 110/61 99 09/27/23 13:00 75 20 110/61 99 09/27/23 12:00 20 09/27/23 11:36 97.8 F 85 18 109/58 100 Intake and Output 09/27/23 09/27/23 09/27/23 06:59 14:59 22:59 Intake Total 0 283 Balance 0 283 Intake: Blood Product 0 283 Rc Pheresis As-3 Unit 0 283 [id number] Other: Weight 49.895 kg In general patient is alert and oriented x 3 in no distress HEENT head normocephalic and atraumatic Neck is supple no JVD no goiter no lymphadenopathy no carotid bruit Chest examination is clear to auscultation no crackles no wheezing Cardiac exam reveals regular heart sounds S1 and S2 no gallops no murmurs Abdomen is soft nontender no organomegaly with normal bowel sounds Extremity exam reveals no edema no cyanosis or clubbing Neurological examination reveals no gross focal deficits Results CBC & Chem 7: 09/27/23 11:55 09/27/23 11:55 Labs: Abnormal Lab Results - Last 24 Hours (Table) 09/27/23 09/27/23 09/27/23 Range/Units 11:55 11:55 11:55 WBC 3.6 L (3.8-10.6) k/uL RBC 3.24 L (3.80-5.40) m/uL Hgb 5.8 L* (11.4-16.0) gm/dL Hct 21.5 L (34.0-46.0) % MCV 66.4 L (80.0-100.0) fL MCH 17.8 L (25.0-35.0) pg MCHC 26.8 L (31.0-37.0) g/dL RDW 16.8 H (11.5-15.5) % BUN 18 H (7-17) mg/dL Total Protein 5.5 L (6.3-8.2) g/dL Albumin 3.2 L (3.5-5.0) g/dL Crossmatch See Detail Assessment and Plan Plan: Severe anemia hemoglobin 5.8, 2 units of red blood cell transfusion was ordered in the emergency room, gastroenterology consultation requested for GI evaluation History of esophageal hernia with surgery on November 26, 2022 Underlying history of lupus erythematous Previous history of DVT and PE 30 years ago per patient Underlying history of restless leg syndrome At this time patient will be admitted to medical floor Home medications reviewed and reordered Gastroenterology consultation requested Will monitor CBC closely Will follow in a.m.
[2023-09-27] MEDS: FAMOTIDINE 20 MG TAB PO SCH (20:01)
[2023-09-27] MEDS: PRAMIPEXOLE 1 MG TAB PO SCH (20:01)
[2023-09-27 20:04] LABS: % Iron Saturation 1.77 (12.00-45.00)
[2023-09-27 21:36] LABS: Appearance,Urine Clear (Clear); Bilirubin,Urine Negative (Negative); Blood,Urine Negative (Negative); Color,Urine Colorless; Glucose,Urine (UA) Negative (Negative); Ketones,Urine Negative (Negative); Leukocyte Esterase,Urine Negative (Negative); Nitrite,Urine Negative (Negative); PH, Urine 7.5 (5.0-8.0); Protein,Urine Negative (Negative); Specific Gravity,Urine 1.006 (1.001-1.035); Urobilinogen,Urine <2.0 mg/dL (<2.0)
[2023-09-28 07:11] LABS: Anisocytosis Slight; HCT 30.2 % (34.0-46.0); Hypochromasia Marked; MCH 20.3 pg (25.0-35.0); MCHC 28.3 g/dL (31.0-37.0); Mean Platelet Volume 6.8; Microcytosis Marked; Platelet Count 389 k/uL (150-450); Poikilocytosis Moderate; RBC 4.21 m/uL (3.80-5.40); RDW 19.9 % (11.5-15.5); WBC 4.8 k/uL (3.8-10.6)
[2023-09-28 07:50] LABS: HGB 8.6 gm/dL (11.4-16.0); MCV 71.7 fL (80.0-100.0)
[2023-09-28] MEDS: PANTOPRAZOLE 40 MG/10 ML VIAL IV SCH (08:26)
[2023-09-28] MEDS: SODIUM CHLORIDE 0.9% 1,000 ML IV SCH (08:46)
[2023-09-28 09:41] LABS: Anisocytosis Moderate; Basophils % (A) 1 %; Eosinophils # (A) 0.2 k/uL (0-0.7); Eosinophils % (A) 4 %; HCT 27.3 % (34.0-46.0); Hypochromasia Marked; Lymphocytes # (A) 1.1 k/uL (1.0-4.8); Lymphocytes % (A) 25 %; MCH 20.9 pg (25.0-35.0); MCHC 29.3 g/dL (31.0-37.0); MCV 71.4 fL (80.0-100.0); Mean Platelet Volume 6.9; Microcytosis Marked; Monocytes # (A) 0.4 k/uL (0-1.0); Monocytes % (A) 8 %; Neutrophils # (A) 2.6 k/uL (1.3-7.7); Neutrophils % (A) 60 %; Platelet Count 364 k/uL (150-450); Poikilocytosis Moderate; RBC 3.82 m/uL (3.80-5.40); WBC 4.4 k/uL (3.8-10.6)
--- NOTE | 2023-09-28 10:16 | P.PN ---
Subjective Progress Note Date: 09/28/23 Rebecca Thakkar, is a 77-year-old female who presented to [facility] emergency room with a chief complaint of generalized weakness and fatigue, patient had an outpatient blood test 3 days ago she received a call from her physician today to go to the emergency room due to severe anemia with hemoglobin of 5 point 6 repeat hemoglobin today was 5.8, 2 units of red blood cells transfusion were ordered in the emergency room, patient was admitted to medical floor and gastroenterology consultation was requested. She was evaluated in the emergency room vital examination on presentation revealed a temperature of 98 pulse 70 respiration 20 blood pressure 100/60 pulse ox 99% on room air Laboratory data reveals a white blood count of 3.6 hemoglobin 5.8 platelet count 385 sodium 136 potassium 4.4 chloride 107 CO2 27 BUN 18 creatinine 0.59 Testing in the emergency room revealed EKG revealed sinus rhythm with low QRS voltage Patient was admitted to medical floor for further evaluation and treatment On 09/28/2023 patient is alert and oriented 3 patient evaluated by GI services. Plans for EGD tomorrow 09/29/2023.patient received 2 units of PRBCs. Hemoglobin 8.0. Current vital signs temp 97.7, heart rate 69, respiratory rate 18, blood pressure 102/49 with pulse ox 96% on room air Objective - Vital Signs Vital signs: Vital Signs Temp 97.7 F 09/28/23 04:16 Pulse 69 09/28/23 04:16 Resp 18 09/28/23 04:16 BP 102/49 09/28/23 04:16 Pulse Ox 96 09/28/23 04:16 FiO2 Intake & Output 09/27/23 09/28/23 09/28/23 18:59 06:59 18:59 Intake Total 283 1090 240 Balance 283 1090 240 Weight 49.895 kg 51.7 kg Intake: Oral 780 240 Blood Product 283 310 Rc As-1 Unit 0 310 [id number] Rc Pheresis As-3 Unit 283 [id number] Other: Voiding Method Toilet # Voids 1 - Exam Head normocephalic Neck supple Lungs clear to auscultation bilaterally no wheezing or crackles Heart regular rate and rhythm S1-S2, no rub or gallop Abdomen is soft nontender nondistended positive bowel sounds no hepa tosplenomegaly Extremities no edema Neuro alert and orientated to 3 - Labs CBC & Chem 7: 09/28/23 09:19 09/27/23 11:55 Labs: Abnormal Lab Results - Last 24 Hours (Table) 09/27/23 09/27/23 09/27/23 Range/Units 11:55 11:55 11:55 WBC 3.6 L (3.8-10.6) k/uL RBC 3.24 L (3.80-5.40) m/uL Hgb 5.8 L* (11.4-16.0) gm/dL Hct 21.5 L (34.0-46.0) % MCV 66.4 L (80.0-100.0) fL MCH 17.8 L (25.0-35.0) pg MCHC 26.8 L (31.0-37.0) g/dL RDW 16.8 H (11.5-15.5) % BUN 18 H (7-17) mg/dL Iron (50-170) UG/DL % Saturation (12.00-45.00) Total Protein 5.5 L (6.3-8.2) g/dL Albumin 3.2 L (3.5-5.0) g/dL Crossmatch See Detail 09/27/23 09/28/23 09/28/23 Range/Units 11:55 06:17 09:19 WBC (3.8-10.6) k/uL RBC (3.80-5.40) m/uL Hgb 8.6 L D 8.0 L (11.4-16.0) gm/dL Hct 30.2 L 27.3 L (34.0-46.0) % MCV 71.7 L D 71.4 L (80.0-100.0) fL MCH 20.3 L 20.9 L (25.0-35.0) pg MCHC 28.3 L 29.3 L (31.0-37.0) g/dL RDW 19.9 H 20.0 H (11.5-15.5) % BUN (7-17) mg/dL Iron 7 L (50-170) UG/DL % Saturation 1.77 L (12.00-45.00) Total Protein (6.3-8.2) g/dL Albumin (3.5-5.0) g/dL Crossmatch Assessment and Plan Plan: Severe anemia hemoglobin 5.8, 2 units of red blood cell transfusion was ordered in the emergency room, gastroenterology consultation requested for GI evaluation History of esophageal hernia with surgery on November 26, 2022 Underlying history of lupus erythematous 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
--- NOTE | 2023-09-28 12:11 | P.CONS ---
History of Present Illness - Reason for Consult Consult date: 09/28/23 anemia, low hemoglobin Requesting physician: Audrey Hinkle - Chief Complaint Low hemoglobin - History of Present Illness This is a pleasant 77-year-old female who was sent into the emergency department yesterday from her primary care physician for low hemoglobin. States she was seeing her PCP Wednesday for questionable UTI had some blood work done and was called yesterday and told her hemoglobin was 5.8 and she needed to come to the emergency department for blood transfusion. She has a past medical history including large paraesophageal hiatal hernia status post surgery in October 2022 with repair in November 2022 with upcoming repair and dilation, history of pulmonary embolism, and osteoarthritis. She denies being on any anticoagulation, only takes ibuprofen randomly. Denies any acid reflux but states that she does vomit at least 1-2 times a week after eating states it is nonbloody but does report that maybe she did have 1 or 2 dark emesis. She denies any black stool states last colonoscopy was 1 to 2 years ago. She had an upper endoscopy on 07/28/[address] Clancy with findings of large paraesophageal hiatal hernia and mild antral gastritis. As stated above she has had paraesophageal hernia surgery and repair. She denies any previous history of GI bleed no previous history of anemia. Reports last colonoscopy 1 to 2 years ago. She is status post 2 units of blood with repeat hemoglobin today of 8.6 BUN elevated at 18 with a microcytic anemia. Review of Systems REVIEW OF SYSTEMS: CARDIOPULMONARY: No chest pain or shortness of breath. Gastrointestinal: No abdominal pain. No nausea, vomiting 1-2 times a week from acid reflux. No hematemesis, possible 1-2 episodes of dark emesis. No rectal bleeding, or melena. GENITOURINARY: No dysuria or hematuria. MUSCULOSKELETAL: Reports normal range of motion., Joint pain. SKIN: No rashes. No jaundice. ENDOCRINE: No chills, fevers. No excessive weight gain or loss. No polydipsia or polyuria. PSYCHIATRIC: Unremarkable. NEUROLOGY: No change in mental status. Denies dizziness, headache. ENT: Vision unremarkable. CONSTITUTIONAL: No recent weight loss. No fever, chills, night sweats. Increased fatigue. Past Medical History Past Medical History: Osteoarthritis (OA), Pulmonary Embolus (PE), Skin Disorder Additional Past Medical History / Comment(s): varicose veins, RESTLESS LEG SYNDROME KRISTY. takes mirapex at night,OSTEOPOROSIS ,LUPUS, para esophageal hernia was subsequent repair ,12/03 superficial rough spot to leg and now is skin cancer and removing at end of History of Any Multi-Drug Resistant Organisms: None Reported Past Surgical History: Bladder Surgery, Hernia Repair, Hysterectomy, Orthopedic Surgery Additional Past Surgical History / Comment(s): left carpel tunnnel. esphogeal repair, cysocele and rectocele Past Anesthesia/Blood Transfusion Reactions: Postoperative Nausea & Vomiting (PONV) Additional Past Anesthesia/Blood Transfusion Reaction / Comm: no blood transfusion Past Psychological History: No Psychological Hx Reported Smoking Status: Never smoker Past Alcohol Use History: None Reported Past Drug Use History: None Reported - Past Family History Sister(s) Family Medical History: Cancer Additional Family Medical History / Comment(s): skin cancer to face Daughter(s) Family Medical History: Cancer Additional Family Medical History / Comment(s): breast bilateral Father Family Medical History: Cancer Additional Family Medical History / Comment(s): thyroid Mother Family Medical History: Cancer Additional Family Medical History / Comment(s): breast and leg Medications and Allergies Home Medications Medication Instructions Recorded Confirmed Type Hydroxychloroquine Sulfate 200 mg PO Q2D 04/27/22 09/27/23 History Pramipexole [Mirapex] 1 mg PO HS 12/02/22 09/27/23 History Cefdinir 300 mg PO BID 09/27/23 09/27/23 History Famotidine [Pepcid] 40 mg PO BID 09/27/23 09/27/23 History Hydroxychloroquine Sulfate 400 mg PO Q2D 09/27/23 09/27/23 History [Plaquenil] Allergies Allergy/AdvReac Type Severity Reaction Status Date / Time levofloxacin [From Levaquin] Allergy Rash/Hives Verified 09/27/23 13:10 Sulfa (Sulfonamide Allergy SEVERE Verified 09/27/23 13:10 Antibiotics) WEAKNESS OF LEGS, Hives sulfamethoxazole Allergy SEVERE Verified 09/27/23 13:10 [From Bactrim] WEAKNESS OF LEGS, Hives trimethoprim [From Bactrim] Allergy SEVERE Verified 09/27/23 13:10 WEAKNESS OF LEGS, Hives estrogens, conjugated AdvReac Severe CLOT IN Verified 09/27/23 13:10 [From Premarin] LEGS gabapentin [From Neurontin] AdvReac Severe CONSTANT Verified 09/27/23 13:10 MOVEMENT OF WHOLE BODY ciprofloxacin [From Cipro] AdvReac muscle and Verified 09/27/23 13:10 bone weakness ciprofloxacin HCl AdvReac muscle and Verified 09/27/23 13:10 [From Cipro] bone weakness quinine AdvReac WEAKNESS Verified 09/27/23 13:10 IN THE LEGS Physical Exam Vitals: Vital Signs Temp Pulse Pulse Resp BP BP Pulse Ox 09/28/23 04:16 97.7 F 69 18 102/49 96 09/27/23 23:24 97.7 F 55 L 17 101/57 97 09/27/23 22:26 97.6 F 51 L 18 102/51 99 09/27/23 20:00 97.7 F 71 18 110/69 97 09/27/23 19:20 98 F 75 16 109/61 100 09/27/23 19:00 98 F 65 17 109/61 99 09/27/23 18:19 97.8 F 65 17 111/67 95 09/27/23 17:16 78 20 102/68 96 09/27/23 17:00 72 20 101/58 98 09/27/23 16:12 98.1 F 63 17 113/52 100 09/27/23 16:00 98 F 60 16 102/60 98 09/27/23 15:30 73 20 100/60 98 09/27/23 15:15 97.8 F 68 16 100/60 98 09/27/23 15:00 72 20 100/60 99 09/27/23 14:30 97.8 F 70 16 99/56 09/27/23 14:15 97.0 F L 77 16 101/62 98 09/27/23 14:00 98 F 76 16 110/74 100 09/27/23 13:45 98.8 F 75 20 100/54 100 09/27/23 13:30 97.8 F 72 16 111/59 98 09/27/23 13:22 97 F L 72 20 110/61 99 09/27/23 13:00 75 20 110/61 99 09/27/23 12:00 20 09/27/23 11:36 97.8 F 85 18 109/58 100 Intake and Output 09/27/23 09/28/23 09/28/23 22:59 06:59 14:59 Intake Total 1133 240 240 Balance 1133 240 240 Intake: Oral 540 240 240 Blood Product 593 Rc As-1 Unit 310 [id number] Rc Pheresis As-3 Unit 283 [id number] Other: Voiding Method Toilet Toilet # Voids 1 1 Weight 49.895 kg 51.7 kg General appearance: The patient is alert, oriented, appears in no acute distress. HET: Head is normocephalic and atraumatic. Conjunctiva pink. Sclera anicteric. Neck: Supple without lymphadenopathy. Trachea midline. Heart: Regular. Lungs: Equal expansion, normal respiratory effort. Abdomen: Soft, nontender, nondistended. Skin: No rashes. No jaundice. Extremities: Normal skin color and turgor. No pedal edema. Neurological: No focal deficits. Alert and oriented x3. Results CBC & Chem 7: 09/28/23 09:19 09/29/23 05:43 Labs: Abnormal Lab Results - Last 24 Hours (Table) 09/27/23 09/27/23 09/27/23 Range/Units 11:55 11:55 11:55 WBC 3.6 L (3.8-10.6) k/uL RBC 3.24 L (3.80-5.40) m/uL Hgb 5.8 L* (11.4-16.0) gm/dL Hct 21.5 L (34.0-46.0) % MCV 66.4 L (80.0-100.0) fL MCH 17.8 L (25.0-35.0) pg MCHC 26.8 L (31.0-37.0) g/dL RDW 16.8 H (11.5-15.5) % BUN 18 H (7-17) mg/dL Iron (50-170) UG/DL % Saturation (12.00-45.00) Total Protein 5.5 L (6.3-8.2) g/dL Albumin 3.2 L (3.5-5.0) g/dL Crossmatch See Detail 09/27/23 09/28/23 Range/Units 11:55 06:17 WBC (3.8-10.6) k/uL RBC (3.80-5.40) m/uL Hgb 8.6 L D (11.4-16.0) gm/dL Hct 30.2 L (34.0-46.0) % MCV 71.7 L D (80.0-100.0) fL MCH 20.3 L (25.0-35.0) pg MCHC 28.3 L (31.0-37.0) g/dL RDW 19.9 H (11.5-15.5) % BUN (7-17) mg/dL Iron 7 L (50-170) UG/DL % Saturation 1.77 L (12.00-45.00) Total Protein (6.3-8.2) g/dL Albumin (3.5-5.0) g/dL Crossmatch Assessment and Plan (1) Microcytic hypochromic anemia Narrative/Plan: 77-year-old female presenting with a microcytic anemia, increased fatigue with history of large paraesophageal hiatal hernia status post surgery and repair a year ago who has continued vomiting since her surgery at least 1-2 times a week. Does take Pepcid twice daily however no proton pump inhibitor. Occult stool negative however BUN elevated and we are dealing with a microcytic anemia likely iron deficiency anemia from upper GI bleed. Recommend proceeding with upper endoscopy, avoid NSAIDs and will change Pepcid to Protonix. Current Visit: Yes Status: Acute Code(s): D50.9 - IRON DEFICIENCY ANEMIA, UNSPECIFIED SNOMED Code(s): 55436029 (2) Paraesophageal hiatal hernia Current Visit: Yes Status: Acute Code(s): K44.9 - DIAPHRAGMATIC HERNIA WITHOUT OBSTRUCTION OR GANGRENE SNOMED Code(s): 5789844 (3) Acute vomiting Current Visit: No Status: Acute Code(s): R11.10 - VOMITING, UNSPECIFIED SNOMED Code(s): 69596506 Plan: 1. Continue symptomatic and supportive care 2. Patient may have clear liquid diet, n.p.o. after midnight 3. Discontinue Pepcid and start omeprazole 40 mg twice daily IV 4. Avoid NSAIDs 5. Will plan for upper endoscopy and colonoscopy tomorrow 6. Patient to follow-up with cardiothoracic surgery for scheduled hiatal hernia surgery Thank you for this consultation, we will continue to follow. Dr. Javid Clancy I agree with the dictator's note, documented as a scribe by Vandana Benton.
[2023-09-28] MEDS: PEG 3350 (236 GM/BTL) + LYTES 4,000 ML BOTTLE PO ONE (16:19)
[2023-09-28] MEDS: PANTOPRAZOLE 40 MG TABLET PO SCH (16:19)
[2023-09-29 06:43] LABS: ALT 11 U/L (4-34); AST 30 U/L (14-36); African American GFR (CKD) >90 (>60 ml/min/1.73 sqM); Albumin 3.3 g/dL (3.5-5.0); Alkaline Phosphatase 67 U/L (38-126); Anion Gap 3 mmol/L; Blood Urea Nitrogen 10 mg/dL (7-17); Carbon Dioxide 28 mmol/L (22-30); Chloride 103 mmol/L (98-107); Glucose 80 mg/dL (74-99); Non-African American GFR(CKD) 83 (>60 ml/min/1.73 sqM); Potassium 4.1 mmol/L (3.5-5.1); Sodium 134 mmol/L (137-145); Total Bilirubin 0.7 mg/dL (0.2-1.3); Total Protein 5.6 g/dL (6.3-8.2)
[2023-09-29] MEDS ORDERED: PANTOPRAZOLE 40 MG TABLET PO SCH (07:30)
[2023-09-29 10:03] LABS: Anisocytosis Moderate; Basophils % (A) 1 %; Eosinophils # (A) 0.3 k/uL (0-0.7); Eosinophils % (A) 5 %; HCT 31.6 % (34.0-46.0); Hypochromasia Marked; Lymphocytes # (A) 1.9 k/uL (1.0-4.8); Lymphocytes % (A) 36 %; MCH 20.4 pg (25.0-35.0); MCHC 28.4 g/dL (31.0-37.0); MCV 71.9 fL (80.0-100.0); Mean Platelet Volume 7.3; Microcytosis Marked; Monocytes # (A) 0.4 k/uL (0-1.0); Monocytes % (A) 9 %; Neutrophils # (A) 2.4 k/uL (1.3-7.7); Neutrophils % (A) 48 %; Platelet Count 436 k/uL (150-450); Poikilocytosis Moderate; RDW 20.3 % (11.5-15.5); WBC 5.1 k/uL (3.8-10.6)
--- NOTE | 2023-09-29 10:50 | P.PN ---
Subjective Progress Note Date: 09/29/23 Rebecca Thakkar, is a 77-year-old female who presented to [facility] emergency room with a chief complaint of generalized weakness and fatigue, patient had an outpatient blood test 3 days ago she received a call from her physician today to go to the emergency room due to severe anemia with hemoglobin of 5 point 6 repeat hemoglobin today was 5.8, 2 units of red blood cells transfusion were ordered in the emergency room, patient was admitted to medical floor and gastroenterology consultation was requested. She was evaluated in the emergency room vital examination on presentation revealed a temperature of 98 pulse 70 respiration 20 blood pressure 100/60 pulse ox 99% on room air Laboratory data reveals a white blood count of 3.6 hemoglobin 5.8 platelet count 385 sodium 136 potassium 4.4 chloride 107 CO2 27 BUN 18 creatinine 0.59 Testing in the emergency room revealed EKG revealed sinus rhythm with low QRS voltage Patient was admitted to medical floor for further evaluation and treatment On 09/28/2023 patient is alert and oriented 3 patient evaluated by GI services. Plans for EGD tomorrow 09/29/2023.patient received 2 units of PRBCs. Hemoglobin 8.0. Current vital signs temp 97.7, heart rate 69, respiratory rate 18, blood pressure 102/49 with pulse ox 96% on room air On 09/29/2023 patient is alert and oriented 3Plans for EGD and colonoscopy todayper GI services. Her vital signs of 97.5, heart 76, respiratory rate 16, blood pressure 116/63 with pulse ox 100% on room air.hemoglobin 9.0.patient denies chest pain or shortness of breath. Patient denies nausea vomiting or diarrhea. Patient denies any urinary burning or frequency Objective - Vital Signs Vital signs: Vital Signs Temp 97.5 F L 09/29/23 09:25 Pulse 76 09/29/23 09:25 Resp 16 09/29/23 09:25 BP 116/63 09/29/23 09:25 Pulse Ox 100 09/29/23 09:25 FiO2 Intake & Output 09/28/23 09/29/23 09/29/23 18:59 06:59 18:59 Intake Total 720 600 Output Total 0 Balance 720 600 Weight 50.9 kg Intake: Oral 720 600 Output: Urine 0 Other: Voiding Method Toilet Toilet Toilet # Voids 2 - Exam Head normocephalic Neck supple Lungs clear to auscultation bilaterally no wheezing or crackles Heart regular rate and rhythm S1-S2, no rub or gallop Abdomen is soft nontender nondistended positive bowel sounds no hepatosplenomegaly Extremities no edema Neuro alert and orientated to 3 - Labs CBC & Chem 7: 09/29/23 05:45 09/29/23 05:43 Labs: Abnormal Lab Results - Last 24 Hours (Table) 09/28/23 09/29/23 09/29/23 Range/Units 09:19 05:43 05:45 Hgb 9.0 L (11.4-16.0) gm/dL Hct 31.6 L (34.0-46.0) % MCV 71.9 L (80.0-100.0) fL MCH 20.4 L (25.0-35.0) pg MCHC 28.4 L (31.0-37.0) g/dL RDW 20.3 H (11.5-15.5) % Sodium 134 L (137-145) mmol/L Ferritin 6.5 L (10.0-291.0) ng/mL Total Protein 5.6 L (6.3-8.2) g/dL Albumin 3.3 L (3.5-5.0) g/dL Assessment and Plan Plan: Severe anemia hemoglobin 5.8, 2 units of red blood cell transfusion was ordered in the emergency room, gastroenterology consultation requested for GI evaluation History of esophageal hernia with surgery on November 26, 2022 Underlying history of lupus erythematous 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
[2023-09-29] MEDS ORDERED: PROPOFOL 10 MG/ML 20 ML VIAL IV ONE (11:58)
[2023-09-29] MEDS ORDERED: LIDOCAINE 1% INJ 10MG/ML (20 ML MDV) ONE (11:58)
[2023-09-29] MEDS: LACTATED RINGERS 1,000 ML IV ONE ×2 (12:01→12:20)
--- NOTE | 2023-09-29 12:21 | P.PCN ---
Date of Procedure: 09/29/23 Procedure(s) Performed: Brief history: Patient is a pleasant 77-year-old white female admitted to hospital with severe symptomatic anemia and a hemoglobin of 5.5 g/dL. Iron indicis consistent with iron deficiency anemia. She was diagnosed with large hiatal hernia hiatal hernia underwent surgery in April of this year. Since then she has been having intermittent episodes of nausea vomiting. She is scheduled for an upper endoscopy as well as colonoscopy as a part of evaluation of severe symptomatic iron deficiency Procedure performed: Esophagogastroduodenoscopy with biopsy Colonoscopy Preoperative diagnosis: Severe symptomatic iron deficiency anemia Intermittent nausea vomiting Anesthesia: MAC Procedure: After informed consent was obtained from the patient was brought into the endoscopy unit and IV sedation was administered by anesthesia under continuous monitoring. Initially upper endoscopy was done. The Olympus GF 160 video endoscope was inserted inserted into the mouth and esophagus intubated without any difficulty and was gradually advanced into the stomach and duodenum and ca refully examined. The bulb and second part of the duodenum appeared normal. Options were done from the duodenum to rule out celiac disease. The scope was then withdrawn into the stomach adequately insufflated with air and upon careful examination the antrum appeared normal. There was large amount of retained solid food noted in the stomach suggestive of gastroparesis. The visualized portions of the body, cardia and fundus appeared normal. The scope was then withdrawn into the esophagus. Small hiatal hernia noted. The GE junction was located at 35 cm to the incisors. It appeared very erythematous with superficial ulceration and erosions consistent with LA grade C reflux esophagitis. Rest of the esophagus appeared normal. Patient tolerated the procedure well. At this time the patient continued to remain sedation. Initial digital rectal examination was normal. Olympus CF 160 video colonoscope was then inserted into the rectum and gradually advanced to the cecum without any difficulty. Careful examination was performed as the scope was gradually being withdrawn. The prep was fair.. The cecum, significant amount of stool with solid competent and despite irrigation I was not able to examine the entire cecum. Part of the appendiceal orifice was visualized and appeared normal. Ascending colon, transverse colon, descending colon, sigmoid colon and rectum appeared normal. Katter sigmoid diverticulosis retroflexion was performed in the rectum and no lesions were noted. Patient tolerated the procedure well. Impression: 1. Upper endoscopy revealed: a) ulcerations and erosions in the distal esophagus consistent with severe LA grade C reflux esophagitis b) large amount of retained solid food in the stomach suggestive of gastroparesis c) mild hiatal hernia d) no evidence of esophageal stricture 2. Colonoscopy revealed scattered sigmoid diverticulosis but no evidence of colorectal neoplasia Recommendations: Findings of this examination were discussed with the patient as well as her family. She will be continuing Protonix 40 mg twice daily. Small frequent meals. Reglan 10 mg before each meal and at bedtime for nausea vomiting and to improve the gastroparesis. Start iron supplements twice daily.
[2023-09-30 08:54] LABS: Anisocytosis Moderate; Basophils % (A) 1 %; Eosinophils # (A) 0.3 k/uL (0-0.7); Eosinophils % (A) 5 %; HCT 29.2 % (34.0-46.0); HGB 8.5 gm/dL (11.4-16.0); Hypochromasia Marked; Lymphocytes # (A) 1.4 k/uL (1.0-4.8); Lymphocytes % (A) 28 %; MCH 20.9 pg (25.0-35.0); MCHC 29.1 g/dL (31.0-37.0); MCV 71.7 fL (80.0-100.0); Microcytosis Marked; Monocytes # (A) 0.3 k/uL (0-1.0); Monocytes % (A) 6 %; Neutrophils # (A) 2.9 k/uL (1.3-7.7); Neutrophils % (A) 59 %; Platelet Count 347 k/uL (150-450); Poikilocytosis Moderate; RBC 4.07 m/uL (3.80-5.40)
[2023-09-30 09:14] LABS: ALT 11 U/L (4-34); AST 25 U/L (14-36); African American GFR (CKD) >90 (>60 ml/min/1.73 sqM); Alkaline Phosphatase 56 U/L (38-126); Anion Gap 4 mmol/L; Blood Urea Nitrogen 12 mg/dL (7-17); Calcium 8.7 mg/dL (8.4-10.2); Carbon Dioxide 27 mmol/L (22-30); Chloride 106 mmol/L (98-107); Glucose 97 mg/dL (74-99); Non-African American GFR(CKD) 83 (>60 ml/min/1.73 sqM); Potassium 4.3 mmol/L (3.5-5.1); Sodium 137 mmol/L (137-145); Total Bilirubin 0.4 mg/dL (0.2-1.3); Total Protein 5.3 g/dL (6.3-8.2)
[2023-09-30 09:26] VITALS: RESP 20
[2023-09-30] MEDS: SODIUM FERRIC GLUCONAT-SUCROSE 125 MG in SODIUM CHLORIDE 0.9% 100 ML IVPB ONE (10:56)
[2023-09-30 11:37] VITALS: BP 120/65; PULSE 54; TEMP 97.5
--- NOTE | 2023-09-30 14:02 | P.DS ---
Providers Date of admission: 09/27/23 15:45 Expected date of discharge: 09/30/23 Attending physician: Audrey Hinkle Consults: 09/28/23 08:42 Consult Physician Routine Consulting Provider: rPiti Clancy Consult Reason/Comments: anemia, low HGB Do you want consulting provider notified?: Yes Primary care physician: Mera Villar [facility] Course: Diagnosis on discharge: Severe anemia hemoglobin 5.8, 2 units of red blood cell transfusion was ordered in the emergency room, gastroenterology consultation requested for GI evaluation History of esophageal hernia with surgery on November 26, 2022 Underlying history of lupus erythematous Previous history of DVT and PE 30 years ago per patient Underlying history of restless leg syndrome Hospital course: Rebecca Thakkar, is a 77-year-old female who presented to [facility] emergency room with a chief complaint of generalized weakness and fatigue, patient had an outpatient blood test 3 days ago she received a call from her physician today to go to the emergency room due to severe anemia with hemoglobin of 5 point 6 repeat hemoglobin today was 5.8, 2 units of red blood cells transfusion were ordered in the emergency room, patient was admitted to medical floor and gastroenterology consultation was requested. She was evaluated in the emergency room vital examination on presentation revealed a temperature of 98 pulse 70 respiration 20 blood pressure 100/60 pulse ox 99% on room air Laboratory data reveals a white blood count of 3.6 hemoglobin 5.8 platelet count 385 sodium 136 potassium 4.4 chloride 107 CO2 27 BUN 18 creatinine 0.59 Testing in the emergency room revealed EKG revealed sinus rhythm with low QRS voltage Patient was admitted to medical floor for further evaluation and treatment On 09/28/2023 patient is alert and oriented 3 patient evaluated by GI services. Plans for EGD tomorrow 09/29/2023.patient received 2 units of PRBCs. Hemoglobin 8.0. Current vital signs temp 97.7, heart rate 69, respiratory rate 18, blood pressure 102/49 with pulse ox 96% on room air On 09/29/2023 patient is alert and oriented 3Plans for EGD and colonoscopy todayper GI services. Her vital signs of 97.5, heart 76, respiratory rate 16, blood pressure 116/63 with pulse ox 100% on room air.hemoglobin 9.0.patient denies chest pain or shortness of breath. Patient denies nausea vomiting or diarrhea. Patient denies any urinary burning or frequency On 09/30/2023 patient was seen and examined on the medical floor she is alert and oriented x 3 in no apparent distress, results of EGD discussed in details, patient was cleared by gastroenterology to be discharged home, hemoglobin at the time of discharge 8.5, patient given 1 dose of IV iron Venofer fair 125 mg on 09/29/2024, she was given prescriptions for iron sulfate, Protonix 40 mg twice daily, and Reglan 10 mg 4 times daily before meals and at bedtime, patient will follow-up with her primary care physician Dr. Villar, she will also follow-up with gastroenterology Plan - Discharge Summary Discharge Rx Participant: No New Discharge Prescriptions: New Ferrous Sulfate [Feosol] 325 mg PO DAILY 30 Days #30 tab Pantoprazole [Protonix] 40 mg PO AC-BID 60 Days #30 tab Metoclopramide [Reglan] 10 mg PO ACHS 30 Days #120 tab Continue Hydroxychloroquine Sulfate 200 mg PO Q2D Hydroxychloroquine Sulfate [Plaquenil] 400 mg PO Q2D Cefdinir 300 mg PO BID Pramipexole [Mirapex] 1 mg PO HS Discontinued Famotidine [Pepcid] 40 mg PO BID Discharge Medication List Hydroxychloroquine Sulfate 200 mg PO Q2D 04/27/22 [History] Pramipexole [Mirapex] 1 mg PO HS 12/02/22 [History] Cefdinir 300 mg PO BID 09/27/23 [History] Hydroxychloroquine Sulfate [Plaquenil] 400 mg PO Q2D 09/27/23 [History] Ferrous Sulfate [Feosol] 325 mg PO DAILY 30 Days #30 tab 09/30/23 [Rx] Metoclopramide [Reglan] 10 mg PO ACHS 30 Days #120 tab 09/30/23 [Rx] Pantoprazole [Protonix] 40 mg PO AC-BID 60 Days #30 tab 09/30/23 [Rx] Follow up Appointment(s)/Referral(s): Mera Villar MD [Primary Care Provider] - 1-2 days Priti Clancy MD [STAFF PHYSICIAN] - 2 Weeks
== END 2023-09-30 14:47 | disposition home health service (06) ==
LOC: EC 11:35 → 3SCARD 15:45
PROVIDERS: ADMIT Internal Medicine; ATTEND Internal Medicine
DX: D50.9 Iron deficiency anemia, unspecified (principal); K22.10 Ulcer of esophagus without bleeding; K44.9 Diaphragmatic hernia without obstruction or gangrene; K57.30 Diverticulosis of large intestine without perforation or abscess without bleeding; G25.81 Restless legs syndrome; L93.0 Discoid lupus erythematosus; Z86.711 Personal history of pulmonary embolism; Z86.718 Personal history of other venous thrombosis and embolism; Z79.899 Other long term (current) drug therapy; Z88.1 Allergy status to other antibiotic agents; Z88.2 Allergy status to sulfonamides
CPT/HCPCS: 96376; 96365; 36430; 96375; 99285; 36415; 93005; 86900; 86901; 88305; 80053 ×3; 82728; 83540; 83550; 85025 ×4; 85027; 85610; 85730; 86850; 86920; 82272; 81003; 45378; 43239; G0378 ×4; P9016; J2916; J2470 ×2

== ENCOUNTER → 2023-10-11 | Outpatient (CLI) | payer MEDICARE | END | disposition home or self-care (01) | LOC: LABPRL 11:49 | PROVIDERS: ATTEND Family Medicine | DX: N39.0 Urinary tract infection, site not specified (principal); R79.89 Other specified abnormal findings of blood chemistry | CPT/HCPCS: 85025; 87086 ==

== ENCOUNTER → 2024-02-08 | Outpatient (CLI) | payer MEDICARE ==
[~2024-02-08] MED LIST changes: -LACTATED RINGERS 1,000 ML IV SCH; -LIDOCAINE 1% (10MG/ML) FOR IV START INTRADERMA PRN; -LIDOCAINE 1% INJ 10MG/ML (20 ML MDV) ONE; -PROPOFOL 10 MG/ML 20 ML VIAL IV ONE; +SODIUM CHLORIDE 0.9% 250 ML in EMPTY BAG 1 BAG IV PRN
[2024-02-08 14:13] VITALS: BP 128/74; PULSE 84; RESP 16; TEMP 97.8
[2024-02-08] MEDS: ZOLEDRONIC ACID 5 MG in SODIUM CHLORIDE 0.9% 100 ML IV NR (14:15)
[2024-02-08] MEDS: SODIUM CHLORIDE 0.9% 500 ML 500 ML in EMPTY BAG 1 BAG IV PRN (14:15)
== END ==
LOC: PROCWHC3 13:46
PROVIDERS: ATTEND Family Medicine
DX: M81.0 Age-related osteoporosis without current pathological fracture (principal); Z88.1 Allergy status to other antibiotic agents; Z88.2 Allergy status to sulfonamides; Z88.6 Allergy status to analgesic agent; Z88.8 Allergy status to other drugs, medicaments and biological substances
CPT/HCPCS: 96365; J3489

== ENCOUNTER → 2024-02-17 | Outpatient (CLI) | payer MEDICARE ==
--- NOTE | 2024-02-21 18:28 | MM ---
Reason for Exam: Screening (asymptomatic). Last screening mammogram was performed 12 month(s) ago. Patient History: Menarche at age 14. First Full-Term at age 28. Hysterectomy at age 74. Postmenopausal. Patient has history of breast feeding. Estrogen for 2 months. Mother had breast cancer, age 80. Risk Values: Jeimy 5 year model risk: 3.4%. NCI Lifetime model risk: 6.5%. Prior Study Comparison: 09/22/2019 Bilateral Screening Mammogram, [facility]. 01/28/2022 Bilateral MG 3D screening mammo w/cad, [facility]. 02/03/2023 Bilateral MG 3D screening mammo w/cad, [facility]. Tissue Density: The breasts are heterogeneously dense, which may obscure small masses. Findings: Analyzed By CAD. Interval weight loss and increasing breast density. Asymmetric density posterior superior left MLO view is unchanged from 2022. There is no suspicious group of microcalcifications or new suspicious mass in either breast. Overall Assessment: Benign, BI-RAD 2 Management: Screening Mammogram of both breasts in 1 year. See note below in regards to patient's increased 5 year Jeimy score. Patient should continue monthly self-breast exams. A clinical breast exam by your physician is recommended on an annual basis. This exam should not preclude additional follow-up of suspicious palpable abnormalities. Note on Jeimy scores and lifetime risk: 1. A Jeimy score greater than 3% is considered moderate risk. If this is the case, consider specialist referral to assess eligibility for a risk reducing agent. 2. If overall lifetime risk for the development of breast cancer is 20% or higher, the patient may qualify for future screening with alternating mammogram and breast MRI. [facility], , 02/21/2024 6:25 PM. Electronically signed and approved by: Tremayne Weiss M.D. Radiologist
== END | disposition home or self-care (01) ==
LOC: RADMAMWWP 14:57
PROVIDERS: ATTEND Family Medicine
DX: Z12.31 Encounter for screening mammogram for malignant neoplasm of breast (principal); R92.333 Mammographic heterogeneous density, bilateral breasts; Z78.0 Asymptomatic menopausal state; Z80.3 Family history of malignant neoplasm of breast
CPT/HCPCS: 77063; 77067

== ENCOUNTER → 2024-03-16 | Outpatient (CLI) | payer MEDICARE ==
--- NOTE | 2024-03-16 12:49 | FL ---
EXAMINATION TYPE: FL barium swallow DATE OF EXAM: 03/16/2024 CLINICAL HISTORY: Nausea and vomiting. Recent 40 pound weight loss since esophageal surgery one year ago. TECHNIQUE: A single contrast esophagram is performed utilizing barium due to surgical history. A to ijeoma of 22 seconds of fluoroscopic time was utilized during procedure and 43 images obtained. Total D AP = 209.48 COMPARISON: Prior upper GI December 07, 2022 FINDINGS: The esophagus shows normal motility and emptying into the stomach. No evidence of fixed hi atal hernia or stricture noted. No significant gastroesophageal reflux was seen during real time perf ormance of this study. IMPRESSION: No significant abnormality is seen to account for patient's symptoms. [facility], , 03/16/2024 12:47 PM
== END | disposition home or self-care (01) ==
LOC: RADFLMAIN 08:41
PROVIDERS: ATTEND Internal Medicine Gastroenterology
DX: R11.2 Nausea with vomiting, unspecified (principal); R63.4 Abnormal weight loss
CPT/HCPCS: 74220

== ENCOUNTER → 2024-05-02 | Outpatient (CLI) | payer MEDICARE ==
[2024-05-02 16:50] LABS: Basophils # (A) 0.06 X 10*3/uL (0.00-0.10); Basophils % (A) 0.8 %; Eosinophils % (A) 2.8 %; HCT 38.9 % (37.2-46.3); HGB 11.8 g/dL (12.0-15.0); Lymphocytes # (A) 1.55 X 10*3/uL (0.90-5.00); Lymphocytes % (A) 21.8 %; MCH 28.8 pg (27.0-32.0); MCHC 30.3 g/dL (32.0-37.0); MCV 94.9 FL (80.0-97.0); Mean Platelet Volume 11.6 FL (9.5-12.2); Monocytes # (A) 0.66 X 10*3/uL (0.20-1.00); Monocytes % (A) 9.3 %; NRBC Per 100 WBC 0 X 10*3/uL (0.00-0.01); Neutrophils # (A) 4.61 X 10*3/uL (1.80-7.70); Platelet Count 311 X 10*3/uL (140-440); RDW 14.4 % (11.5-14.5)
== END | disposition home or self-care (01) ==
LOC: LABWHC1 10:15
PROVIDERS: ATTEND Internal Medicine Gastroenterology
DX: D50.9 Iron deficiency anemia, unspecified (principal)
CPT/HCPCS: 36415; 85025

== ENCOUNTER → 2024-09-21 | Outpatient (CLI) | payer MEDICARE ==
--- NOTE | 2024-09-21 22:03 | XR ---
EXAMINATION TYPE: XR toes LT DATE OF EXAM: 09/21/2024 3:43 PM COMPARISON: None. CLINICAL INDICATION: Female, 78 years old with history of M79.671, S90.452A, pain TECHNIQUE: 3 view(s) obtained. FINDINGS: No acute fracture or dislocation. Joint spaces are preserved. There is soft tissue swelling over the great toe. A very linear density is present directed towards the proximal metaphysis distal phalanx a long the inferior medial aspect of the great toe. Small foreign body in the present. Follow up exams can be performed as clinically indicated. IMPRESSION: 1. There may be a small slightly radiopaque foreign body within the inferior medial portion left gre at toe with overlying soft tissue swelling. 2. No acute osseous amount is radiographically apparent. [facility], , 09/21/2024 10:01 PM
--- NOTE | 2024-09-21 22:56 | XR ---
EXAMINATION TYPE: XR foot complete RT DATE OF EXAM: 09/21/2024 3:43 PM COMPARISON: None. CLINICAL INDICATION: Female, 78 years old with history of M79.671, S90.452A, pain TECHNIQUE: 3 view(s) obtained. FINDINGS: No acute fracture or dislocation. Joint spaces are preserved. Soft tissues are normal. Plantar and Ac hilles tendon calcaneal heel spurs are present. Follow up exams can be performed 7-10 days from acute trauma for continued pain IMPRESSION: 1. No acute osseous abnormality right foot [facility] Jay Guadarrama, , 09/21/2024 10:54 PM
== END | disposition home or self-care (01) ==
LOC: RADXRMAIN 14:54
PROVIDERS: ATTEND Family Medicine
DX: S90.452A Superficial foreign body, left great toe, initial encounter (principal); X58.XXXA Exposure to other specified factors, initial encounter